=== PATIENT | female | born 1945 | race American Indian/Alaskan Native ===

== ENCOUNTER 2018-04-15 20:45 | Emergency (ER) | payer OTHER ==
[2018-04-15 20:56] VITALS: BP 160/88; PULSE 80; TEMP 98.3; BMI 30.9
--- NOTE | 2018-04-15 21:41 | PDOC ---
History of Present Illness - General Chief Complaint: Pain Stated Complaint: FATIGUE Time Seen by Provider: 04/15/18 21:13 History Source: Patient Exam Limitations: Clinical Condition - History of Present Illness Initial Comments: 04/15/18 21:36 Patient with history of COPD present for evaluation of the lateral calf pain after starting Levaquin antibiotics with prednisone. Patient reported mild pain to cuff area with ambulation and presents for evaluation as she was told was possible side effect of Levaquin. Denies any Achilles tenderness now denies any other symptoms now. Patient was being treated for bronchitis by PCP with Levaquin and prednisone and report her symptoms as improved with no cough now Past History - Past Medical History Allergies/Adverse Reactions: Allergies Allergy/AdvReac Type Severity Reaction Status Date / Time amoxicillin Allergy Severe diarrhea/severe Verified 04/15/18 20:56 headache/ dizziness/freezing Home Medications: Ambulatory Orders Atorvastatin Ca [Lipitor] 40 mg PO HS 03/22/13 Cholecalciferol (Vitamin D3) [Vitamin D3] 1,000 unit PO DAILY 08/28/15 Cyanocobalamin [Vitamin B12 -] 1,000 mcg PO DAILY 08/28/15 [place]-3 Fatty Acids [Fish Oil] 300 mg PO DAILY 08/28/15 Aspirin [ASA -] 81 mg PO DAILY 08/08/16 Metoprolol Succinate [Toprol XL -] 12.5 mg PO DAILY 08/08/16 metFORMIN HCL [Metformin HCl] 500 mg PO DAILY 08/08/16 Hydrocodone/Acetaminophen [Hydrocodon-Acetaminoph 7.5-325] 1 each PO Q6H #40 tablet MDD 4 08/09/16 Anemia: Yes (TAKING IRON) Asthma: No Cancer: No Cardiac Disorders: No CVA: No COPD: No CHF: No Dementia: No Diabetes: Yes (NIDDM) GI Disorders: No Disorders: Yes (FREQUENT UTI'S,KIDNEY STONES) HTN: Yes Hypercholesterolemia: Yes Liver Disease: No Seizures: No Thyroid Disease: No - Surgical History Abdominal Surgery: No Appendectomy: No Cardiac Surgery: No Cholecystectomy: No Lung Surgery: No Neurologic Surgery: No Orthopedic Surgery: No - Suicide/Smoking/Psychosocial Hx Smoking Status: No Smoking History: Former smoker Have you smoked in the past 12 months: No Number of Cigarettes Smoked Daily: 0 If you are a former smoker, when did you quit?: 2011 Information on smoking cessation initiated: No Hx Alcohol Use: Yes Drug/Substance Use Hx: No Substance Use Type: Alcohol Hx Substance Use Treatment: No Review of Systems - Review of Systems Able to Perform ROS?: Yes Is the patient limited Bur[place]ian proficient: No Constitutional: No: Chills, Diaphoresis, Fever, Loss of Appetite, Malaise, Night Sweats, Weakness, Weight Stable, Unintentional Wgt. Loss, Unexplained wgt Loss, Other HEENTM: No: Eye Pain, Blurred Vision, Tearing, Recent change in vision, Double Vision, Cataracts, Ear Pain, Ocular Prothesis, Ear Discharge, Nose Pain, Nose Congestion, Tinnitus, Nose Bleeding, Hearing Loss, Throat Pain, Throat Swelling , Mouth Pain, Dental Problems, Difficulty Swallowing, Mouth Swelling, Other Respiratory: No: Cough, Orthopnea, Shortness of Breath, SOB with Exertion, SOB at Rest, Stridor, Wheezing, Productive cough, Hemoptysis, Other Cardiac (ROS): No: Chest Pain, Edema, Irregular Heart Rate, Lightheadedness, Palpitations, Syncope, Chest Tightness, Other ABD/GI: No: Abdominal Distended, Abd. Pain w/ defecation, Blood Streaked Bowels , Constipated, Diarrhea, Difficulty Swallowing, Nausea, Poor Appetite, Poor Fluid Intake, Rectal Bleeding, Vomiting, Indigestion, Abdominal cramping, Tarry Stools, Other Musculoskeletal: Yes: Muscle Pain (b/l calf pain with ambulation) All Other Systems: Reviewed and Negative *Physical Exam - Vital Signs Last Vital Signs Temp Pulse Resp BP Pulse Ox 98.3 F 80 18 160/88 100 04/15/18 20:53 04/15/18 20:53 04/15/18 20:53 04/15/18 20:53 04/15/18 20:53 - Physical Exam Comments: 04/15/18 21:38 GENERAL: Well developed, well nourished. Awake and alert. No acute distress. HEENT: Normocephalic, atraumatic. PERRLA, EOMI. No conjunctival pallor. Sclera are non- icteric. Moist mucous membranes. Oropharynx is clear. NECK: Supple. Full ROM. No JVD. Carotid pulses 2+ and symmetric, without bruits. No thyromegaly. No lymphadenopathy. CARDIOVASCULAR: Regular rate and rhythm. No murmurs, rubs, or gallops. Distal pulses are 2+ and symmetric. PULMONARY: No evidence of respiratory distress. Lungs clear to auscultation bilaterally. No wheezing, rales or rhonchi. ABDOMINAL: Soft. Non-tender. Non-distended. No rebound or guarding. No organomegaly. Normoactive bowel sounds. MUSCULOSKELETAL Normal range of motion at all joints. No bony deformities or tenderness. No CVA tenderness. EXTREMITIES: No cyanosis. No clubbing. No edema. No calf tenderness. SKIN: Warm and dry. Normal capillary refill. No rashes. No jaundice. NEUROLOGICAL: Alert, awake, appropriate. Cranial nerves 2-12 intact. No deficits to light touch and temperature in face, upper extremities and lower extremities. No motor deficits in the in face, upper extremities and lower extremities. Normoreflexic in the upper and lower extremities. Normal speech. Toes are down- going bilaterally. Gait is normal without ataxia. PSYCHIATRIC: Cooperative. Good eye contact. Appropriate mood and affect. General Appearance: Yes: Nourished, Appropriately Dressed. No: Apparent Distress Medical Decision Making - Medical Decision Making 04/15/18 21:39 Patient with history of COPD presents for evaluation of car pain after starting Levaquin antibiotics with prednisone 4 days ago. No pain to b/l calf on exam now. No erythema to calf area. No swelling to calf area. No evidence of DVT on exam. Patient advised to stop Levaquin and prednisone and follow up with PCP. Patient advised to follow-up if worsening symptoms of calf pain or swelling to calf area *DC/Admit/Observation/Transfer Diagnosis at time of Disposition: Bilateral calf pain - Discharge Dispostion Disposition: HOME Condition at time of disposition: Good Decision to Admit order: No - Referrals Referrals: Prakash Farmer MD [Primary Care Provider] - - Patient Instructions Additional Instructions: Stop Levaquin antibiotics. Watch of follow swelling to calf area or at achilles tendon area. The temperature ER if worsening pain to calf area or Achilles tendon. Follow up with PCP tomorrow - Post Discharge Activity
== END 2018-04-15 21:53 | disposition home or self-care (01) ==
LOC: JERFT 20:45
DX: M79.661 Pain in right lower leg (principal); M79.662 Pain in left lower leg; M79.1 Myalgia; D50.9 Iron deficiency anemia, unspecified; E11.9 Type 2 diabetes mellitus without complications; J44.9 Chronic obstructive pulmonary disease, unspecified; Z79.84 Long term (current) use of oral hypoglycemic drugs; I10 Essential (primary) hypertension; E78.00 Pure hypercholesterolemia, unspecified; Z87.440 Personal history of urinary (tract) infections
CPT/HCPCS: 99281-25

== ENCOUNTER 2019-02-25 15:06 | Inpatient (IN) | payer OTHER ==
--- NOTE | 2019-02-25 15:24 | PDOC ---
Rapid Medical Evaluation Chief Complaint: Shortness of Breath Time Seen by Provider: 02/25/19 15:20 Medical Evaluation: Allergies Allergy/AdvReac Type Severity Reaction Status Date / Time amoxicillin Allergy Severe diarrhea/severe Verified 04/15/18 20:56 headache/ dizziness/freezing 02/25/19 15:20 I have done a brief in-person evaluation of this patient cc: diagnosed with uri seen by pmd, given zyrtec reports getting worse; productive coughing with greenish phlegm, congestion and shortness of breath PE: NAD lungs: diminished lungs sounds heart S1s2 Orders: neb treatment chest xray this patient will proceed to ed for further evaluation Discharge Disposition - Diagnosis Cough - Referrals - Patient Instructions - Post Discharge Activity
[2019-02-25] MEDS: ALBUTEROL SO4 2.5/IPRATROPIUM 0.5 INH SOL 3 ML VIAL.NEB. NEB SCH ×4 (15:45→16:28)
[2019-02-25] MEDS ORDERED: ALBUTEROL SO4 2.5/IPRATROPIUM 0.5 INH SOL 3 ML VIAL.NEB. NEB ONE (15:55)
--- NOTE | 2019-02-25 16:15 | PDOC ---
History of Present Illness <MehranBriandaheather Liang - Last Filed: 02/25/19 19:27> - History of Present Illness Initial Comments: 02/25/19 17:18 73F with pmh of asthma/COPD and arthritis present sot the Ed for symptoms of coughing, sob and post-tussive chest pain worsening since . Saw her PCP on Monday who prescribed Zyrtec for allergies but patient is now coughing yellow flegm. Chest pain is substernal, nonradiating. Denies subhective fever. Daughter feels like her mother looks more weak in the way she ambulates. Used to smoke more than a pack a day for decades. Stopped smoking in . Needs to sleep with head reclined, unable to sleep flat due to difficulty breathing. Denies headache, abdominal pain, dysuria, nausea, vomiting diarrhea. Took tylenol 600mg yesterday and the day before. Took her symbicort as prescribed every day. <Rashard Melendez - Last Filed: 02/25/19 19:30> - General Chief Complaint: Shortness of Breath Stated Complaint: RESPIRATORY INFECTION Time Seen by Provider: 02/25/19 15:20 Past History <MehranBriandaheather Liang - Last Filed: 02/25/19 19:27> - Past Medical History Anemia: Yes (TAKING IRON) Asthma: No Cancer: No Cardiac Disorders: No CVA: No COPD: Yes CHF: No Dementia: No Diabetes: Yes (NIDDM) GI Disorders: No Disorders: Yes (FREQUENT UTI'S,KIDNEY STONES) HTN: Yes Hypercholesterolemia: Yes Liver Disease: No Seizures: No Thyroid Disease: No - Surgical History Abdominal Surgery: No Appendectomy: No Cardiac Surgery: No Cholecystectomy: No Lung Surgery: No Neurologic Surgery: No Orthopedic Surgery: No - Immunization History Immunization Up to Date: No - Suicide/Smoking/Psychosocial Hx Smoking Status: No Smoking History: Never smoked Have you smoked in the past 12 months: No Number of Cigarettes Smoked Daily: 0 If you are a former smoker, when did you quit?: 2011 Information on smoking cessation initiated: No Hx Alcohol Use: No Drug/Substance Use Hx: No Substance Use Type: Alcohol Hx Substance Use Treatment: No <Rashard Melendez - Last Filed: 02/25/19 19:30> - Past Medical History Allergies/Adverse Reactions: Allergies Allergy/AdvReac Type Severity Reaction Status Date / Time amoxicillin Allergy Severe diarrhea/severe Verified 04/15/18 20:56 headache/ dizziness/freezing Home Medications: Ambulatory Orders Atorvastatin Ca [Lipitor] 40 mg PO HS 03/22/13 Cholecalciferol (Vitamin D3) [Vitamin D3] 1,000 unit PO DAILY 08/28/15 Cyanocobalamin [Vitamin B12 -] 1,000 mcg PO DAILY 08/28/15 [place]-3 Fatty Acids [Fish Oil] 300 mg PO DAILY 08/28/15 Aspirin [ASA -] 81 mg PO DAILY 08/08/16 Metoprolol Succinate [Toprol XL -] 12.5 mg PO DAILY 08/08/16 metFORMIN HCL [Metformin HCl] 500 mg PO DAILY 08/08/16 Hydrocodone/Acetaminophen [Hydrocodon-Acetaminoph 7.5-325] 1 each PO Q6H #40 tablet MDD 4 08/09/16 Review of Systems - Review of Systems Able to Perform ROS?: Yes Is the patient limited Khmer proficient: No Constitutional: No: Chills, Diaphoresis, Fever HEENTM: No: Symptoms Reported Respiratory: Yes: See HPI, Cough, Orthopnea, Shortness of Breath, Wheezing, Productive cough Cardiac (ROS): Yes: See HPI, Chest Pain ABD/GI: No: Symptoms Reported : No: Symptoms Reported Musculoskeletal: No: Symptoms Reported Integumentary: No: Symptoms Reported Neurological: No: Symptoms reported All Other Systems: Reviewed and Negative <Rashard Melendez - Last Filed: 02/25/19 19:30> *Physical Exam - Vital Signs Last Vital Signs Temp Pulse Resp BP Pulse Ox 98.3 F 107 H 16 111/65 89 L 02/25/19 15:21 02/25/19 15:21 02/25/19 15:21 02/25/19 15:21 02/25/19 15:21 <Brianda Laurent - Last Filed: 02/25/19 19:27> - Vital Signs Last Vital Signs Temp Pulse Resp BP Pulse Ox 98.3 F 107 H 16 111/65 89 L 02/25/19 15:21 02/25/19 15:21 02/25/19 15:21 02/25/19 15:21 02/25/19 15:21 - Physical Exam General Appearance: Yes: Obese HEENT: positive: EOMI, CHRIS, Normal ENT Inspection, Other (left ear canal clogged with wax) Respiratory/Chest: positive: Chest Tender (mildly over sternum), Decreased Breath Sounds, Wheezing (in all quadrants, insp/exp. ). negative: Respiratory Distress Cardiovascular: positive: Regular Rhythm, Regular Rate, S1, S2 Gastrointestinal/Abdominal: positive: Normal Bowel Sounds, Soft. negative: Tender Musculoskeletal: positive: Normal Inspection. negative: CVA Tenderness Extremity: positive: Normal Capillary Refill, Normal Inspection, Normal Range of Motion Integumentary: positive: Normal Color, Dry, Warm Neurologic: positive: Fully Oriented, Alert, Normal Mood/Affect, Normal Response , Motor Strength 5/5 <Rashard Melendez - Last Filed: 02/25/19 19:30> ED Treatment Course - LABORATORY CBC & Chemistry Diagram: 02/25/19 17:50 02/25/19 16:28 - ADDITIONAL ORDERS Additional order review: Laboratory Results 02/25/19 16:28 Sodium 135 L Potassium 5.7 H Chloride 99 Carbon Dioxide 25 Anion Gap 11 BUN 28 H Creatinine 1.7 H Est GFR (CKD-EPI)AfAm 34.08 Est GFR (CKD-EPI)NonAf 29.40 Random Glucose 153 H Calcium 9.4 Total Bilirubin 0.8 AST 62 H ALT 24 Alkaline Phosphatase 83 Troponin I < 0.02 B-Natriuretic Peptide 1344.6 H Total Protein 7.3 Albumin 3.2 L 02/25/19 17:50 RBC 4.31 MCV 97.3 H MCHC 33.1 RDW 13.3 MPV 7.5 Neutrophils % 81.8 D Lymphocytes % 7.9 L D Monocytes % 10.0 Eosinophils % 0.1 D Basophils % 0.2 - Medications Given in the ED: ED Medications Discontinued Medications Generic Name Dose Route Start Last Admin Trade Name Freq PRN Reason Stop Dose Admin Albuterol/Ipratropium 1 amp 02/25/19 15:30 02/25/19 16:28 Duoneb - NEB 02/25/19 16:16 1 amp Q15M STU Administration Prednisone 60 mg 02/25/19 18:00 02/25/19 18:10 Deltasone - PO 02/25/19 18:01 60 mg ONCE ONE Administration <Brianda Laurent - Last Filed: 02/25/19 19:27> - LABORATORY CBC & Chemistry Diagram: 02/25/19 17:50 02/25/19 16:28 <Rashard Melendez - Last Filed: 02/25/19 19:30> Medical Decision Making - Medical Decision Making 02/25/19 17:26 73f with pmh of asthma copd htn presenting with productive cough, sob, chest pain and diffuse wheezing for the past 4 days. Asthma/COPd exacerbation vs Respiratory infection . +/- ACS? vs dissection?, --- >EKG and trops. Will obtain xray to look for pneumonia. Reassess vital Due to the patient not having fever and having diffuse wheezing it is more likely that she has a asthma exacerbation. PAtient getting 4 duonebs from [facility]. Will get rest of labs, steroids? reassess. 02/25/19 17:53 02/25/19 18:36 EKG: Sinus tachycardia with PAC's. Possible left atrial enlargement. 02/25/19 18:50 Chest xray: A single AP view of the chest is been submitted. Since 08/18/2015, there is slight increase in symmetrical density at the bases most likely related to breast soft tissues. Mediastinum is not widened. No sign of gross consolidation, failure or pneumothorax. The bones and soft tissues are intact. Correlation recommended. 02/25/19 18:51 Patient still hypoxic unless getting 8L of O2 02/25/19 19:29 Patient admitted to hospitalist med surg for persistent hypoxia secondary to asthma exacerbation <Rashard Melendez - Last Filed: 02/25/19 19:30> *DC/Admit/Observation/Transfer <Brianda Laurent - Last Filed: 02/25/19 19:27> - Discharge Dispostion Decision to Admit order: Yes <Rashard Melendez - Last Filed: 02/25/19 19:30> Diagnosis at time of Disposition: Cough - Discharge Dispostion Condition at time of disposition: Stable - Referrals Referrals: Prakash Farmer MD [Primary Care Provider] -
[2019-02-25] MEDS ORDERED: predniSONE 20 MG TABLET (UD) PO ONE (18:00)
[2019-02-25] MEDS ORDERED: predniSONE 20 MG TABLET (UD) ONE (18:13)
[2019-02-25 18:18] LABS: BASO % 0.2 % (0-2.0); EOS % 0.1 % (0-4.5); HEMATOCRIT 41.9 % (32.4-45.2); HEMOGLOBIN 13.9 GM/dL (10.7-15.3); LYMPH % 7.9 % (8-40); MCH 32.2 pg (25.7-33.7); MCHC 33.1 g/dl (32.0-36.0); MEAN CELL VOLUME 97.3 fl (80-96); MEAN PLT VOLUME 7.5 fl (7.5-11.1); NEUT % 81.8 % (42.8-82.8); PLATELET COUNT 254 K/MM3 (134-434); RBC 4.31 M/mm3 (3.60-5.2); RDW 13.3 % (11.6-15.6); WHITE BLOOD COUNT 14.9 K/mm3 (4.0-10.0)
[2019-02-25 18:56] LABS: ALBUMIN 3.2 g/dl (3.4-5.0); ALK PHOS 83 U/L (45-117); ANION GAP 11 MMOL/L (8-16); BILIRUBIN,TOTAL 0.8 mg/dL (0.2-1); BLOOD UREA NITROGEN 28 mg/dL (7-18); CALCIUM 9.4 mg/dL (8.5-10.1); CHLORIDE 99 mmol/L (98-107); CO2 25 mmol/L (21-32); CREATININE 1.7 mg/dL (0.55-1.3); GLUCOSE,RANDOM 153 mg/dL (74-106); N-TERMINAL BNP 1344.6 pg/ml (5-125); POTASSIUM 5.7 mmol/L (3.5-5.1); SGOT/AST 62 U/L (15-37); SGPT/ALT 24 U/L (13-61); SODIUM 135 mmol/L (136-145); TOT PROT 7.3 g/dl (6.4-8.2)
--- NOTE | 2019-02-25 19:29 | PDOC ---
Documentation entered by Estrella Sabillon SCRIBE, acting as scribe for Brianda Laurent MD. Brianda Laurent MD: This documentation has been prepared by the Ramandeep goff Sammi, SCRIBE, under my direction and personally reviewed by me in its entirety. I confirm that the documentation accurately reflects all work, treatment, procedures, and medical decision making performed by me. Attending Attestation - Resident Resident Name: AlRashard - ED Attending Attestation I have performed the following: I have examined & evaluated the patient, The case was reviewed & discussed with the resident, I agree w/resident's findings & plan, Exceptions are as noted - HPI HPI: 02/25/19 18:12 The patient is a 73 year old female, with a significant PMH of asthma, COPD, arthritis, who presents to the emergency department today for evaluation of 4 days of worsening productive cough (producing yellow phlegm), SOB, and chest pain. The patient states her symptoms were so severe over the weekend and notes hallucinations. The patient notes trouble sleeping and the need to elevated her head, secondary to SOB. 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 She reports seeing her PCP on Monday, where she was prescribed Zyrtec with little relief. Denies fever or chills. Allergies: amoxicillin Social history: Former smoker (quit 2012) PCP: Marleny - Physicial Exam PE: 02/25/19 18:14 GENERAL: Well-appearing, well-nourished. No apparent distress. HEENT: Normocephalic, atraumatic. PERRL, EOM intact. CARDIOVASCULAR: Normal S1, S2. Regular rate and rhythm. PULMONARY: (+) Rhonchi ABDOMEN: Soft, non-distended, non-tender. EXTREMITIES: Normal ROM in all four extremities. No gross deformities. SKIN: Warm, dry. No rash NEUROLOGICAL: No focal neurological deficits. - Medical Decision Making 02/25/19 19:27 pt is hypoxic and needs o2 supplementation, wheezing and requires brobchodilators cxr no infiltrates imp copd exacerbation will admit to med/surg
[2019-02-25] MEDS ORDERED: IPRATROPIUM BR 0.02% 0.5 MG/2.5 ML VIAL.NEB. NEB PRN (19:46)
[2019-02-25] MEDS ORDERED: ALBUTEROL SO4 0.083% IH SOL 2.5 MG/3 ML VIAL.NEB. NEB ONE (20:37)
[2019-02-25] MEDS ORDERED: methylPREDNISolone NA SUCC 40 MG/1 ML VIAL ONE (20:37)
[2019-02-25] MEDS: ALBUTEROL SO4 0.083% IH SOL 2.5 MG/3 ML VIAL.NEB. NEB SCH ×2 (20:44→23:01)
[2019-02-25] MEDS: methylPREDNISolone NA SUCC 40 MG/1 ML VIAL IVPUSH SCH (20:44)
--- NOTE | 2019-02-25 20:56 | HP ---
Admitting History and Physical - Primary Care Physician PCP: Prakash Farmer - Admission Chief Complaint: shortness of breath History of Present Illness: 73 year old female with a PMHx COPD, OA, PreDM2, HTN, HLD presents with wheezing , progressively worsening MCCALL, and productive cough since Monday. She went to her PCP Monday and was given Zyrtec with no relief. Over the weekend she felt fatigue, runny nose and yellow sputum productive cough. Today she had significant MCCALL walking to the car so she came to ED for further evaluation. She denies fever/chills, n/v/d. Has some chest pressure when she is forcefully coughing. No recent travel or sick contacts. When asked about her allergy to PCN, she states she is not allergic to PCN, was an error. History Source: Patient Limitations to Obtaining History: No Limitations - Past Medical History Cardiovascular: Yes: HTN, Hyperlipdemia Pulmonary: Yes: COPD Musculoskeletal: Yes: Osteoarthritis ENT: Yes: Allergic Rhinitis Endocrine: Yes: Diabetes Mellitus (Prediabetes) - Past Surgical History Past Surgical History: Yes: Joint Replacement (right hip replacement, left arm surgery) - Smoking History Smoking history: Former smoker (smoked over 1 ppd for over 40 years, quit 6 years ago) Have you smoked in the past 12 months: No Aproximately how many cigarettes per day: 0 If you are a former smoker, when did you quit?: 2011 - Alcohol/Substance Use Hx Alcohol Use: No History of Substance Use: reports: None - Social History ADL: Independent History of Recent Travel: No Home Medications - Allergies Allergies/Adverse Reactions: Allergies Allergy/AdvReac Type Severity Reaction Status Date / Time No Known Drug Allergies Allergy Verified 02/25/19 20:56 - Home Medications Home Medications: Ambulatory Orders Atorvastatin Ca [Lipitor] 40 mg PO HS 03/22/13 Cholecalciferol (Vitamin D3) [Vitamin D3] 1,000 unit PO DAILY 08/28/15 Cyanocobalamin [Vitamin B12 -] 1,000 mcg PO DAILY 08/28/15 [place]-3 Fatty Acids [Fish Oil] 300 mg PO DAILY 08/28/15 Aspirin [ASA -] 81 mg PO DAILY 08/08/16 Metoprolol Succinate [Toprol XL -] 12.5 mg PO DAILY 08/08/16 Family Disease History - Family Disease History Family Disease History: Other: Father (htn), Mother (htn) Review of Systems - Review of Systems Constitutional: reports: Lethargy Eyes: reports: No Symptoms HENT: reports: Nasal Congestion Neck: reports: No Symptoms Cardiovascular: reports: Shortness of Breath Respiratory: reports: Cough, SOB on Exertion, Wheezing Gastrointestinal: reports: No Symptoms Genitourinary: reports: No Symptoms Breasts: reports: No Symptoms Reported Musculoskeletal: reports: No Symptoms Integumentary: reports: No Symptoms Neurological: reports: No Symptoms Endocrine: reports: No Symptoms Hematology/Lymphatic: reports: No Symptoms Psychiatric: reports: No Symptoms Physical Examination Vital Signs: Vital Signs Temperature 98.3 F 02/25/19 15:21 Pulse Rate 113 H 02/25/19 20:02 Respiratory Rate 16 02/25/19 19:58 Blood Pressure 110/60 02/25/19 20:02 O2 Sat by Pulse Oximetry (%) 99 02/25/19 20:02 Constitutional: Yes: Well Nourished, No Distress, Calm Eyes: Yes: WNL, Conjunctiva Clear, EOM Intact HENT: Yes: WNL, Atraumatic, Normocephalic Neck: Yes: WNL, Supple, Trachea Midline Cardiovascular: Yes: Tachycardia, S1, S2 Respiratory: Yes: Cough, Diminished (poor air entry at bilateral bases), On Nasal O2, SOB on Exertion, Wheezes (bilateral lung foss). No: Accessory Muscle Use Gastrointestinal: Yes: WNL, Normal Bowel Sounds, Soft, Abdomen, Obese Musculoskeletal: Yes: WNL Extremities: Yes: WNL Edema: No Peripheral Pulses WNL: Yes ...Motor Strength: WNL Psychiatric: Yes: WNL Labs: CBC, BMP 02/25/19 17:50 02/25/19 16:28 Imaging - Results Chest X-ray: Report Reviewed, Image Reviewed EKG: Report Reviewed, Image Reviewed Problem List - Problems (1) COPD exacerbation Code(s): J44.1 - CHRONIC OBSTRUCTIVE PULMONARY DISEASE W (ACUTE) EXACERBATION (2) HTN (hypertension) Code(s): I10 - ESSENTIAL (PRIMARY) HYPERTENSION (3) HLD (hyperlipidemia) Code(s): E78.5 - HYPERLIPIDEMIA, UNSPECIFIED (4) Prediabetes Code(s): R73.03 - PREDIABETES (5) CARL (acute kidney injury) Code(s): N17.9 - ACUTE KIDNEY FAILURE, UNSPECIFIED Assessment/Plan 73 year old female 1) Acute hypoxic respiratory failure secondary to COPD exacerbation -start IV steroids -inhaled bronchodilators -levaquin -mucolytics -supplemental 02 as needed, keep sats > 92% -BNP elevated, CXR no evidence of fluid overload, clinically not in heart failure 2) CARL -gentle IV fluids -u/a pending -reassess in AM 3) HTN -resume bb 4) HLD -resume statin 5) PreDM-diet controlled -diabetic diet and ISS while on steroids -BS checks ACHS 6) OA, controlled
[2019-02-25] MEDS: ATORVASTATIN CA 40 MG TABLET (FP) PO SCH (23:37)
[2019-02-25] MEDS: SODIUM CHLORIDE 1,000 ML IV SCH (23:37)
[2019-02-25] MEDS: INSULIN SLIDING SCALE (NOVOLOG) 1 VIAL SQ SCH (23:38)
[2019-02-25] MEDS: HEPARIN NA (PORCINE) 5,000 UNITS/ML 1ML VIAL SQ SCH (23:38)
[2019-02-26] MEDS: guaiFENesin/D-M SUGAR-FREE/ACLHOL-FREE 118 ML BOTTLE PO PRN ×2 (00:14→06:38)
[2019-02-26] MEDS: methylPREDNISolone NA SUCC 40 MG/1 ML VIAL IVPUSH SCH ×3 (02:41→17:39)
[2019-02-26] MEDS: ALBUTEROL SO4 0.083% IH SOL 2.5 MG/3 ML VIAL.NEB. NEB SCH ×3 (04:15→11:20)
[2019-02-26] MEDS: INSULIN SLIDING SCALE (NOVOLOG) 1 VIAL SQ SCH ×4 (06:38→21:46)
[2019-02-26 06:49] LABS: BASO % 0.1 % (0-2.0); HEMATOCRIT 37.1 % (32.4-45.2); HEMOGLOBIN 12.7 GM/dL (10.7-15.3); LYMPH % 3.6 % (8-40); MCH 32.8 pg (25.7-33.7); MCHC 34.2 g/dl (32.0-36.0); MEAN CELL VOLUME 95.7 fl (80-96); MONO % 2.4 % (3.8-10.2); NEUT % 93.9 % (42.8-82.8); PLATELET COUNT 240 K/MM3 (134-434); RBC 3.87 M/mm3 (3.60-5.2); RDW 13.2 % (11.6-15.6); WHITE BLOOD COUNT 10.1 K/mm3 (4.0-10.0)
[2019-02-26 07:16] LABS: CALCIUM 8.8 mg/dL (8.5-10.1); CREATININE 1.6 mg/dL (0.55-1.3); POTASSIUM 4.1 mmol/L (3.5-5.1)
--- NOTE | 2019-02-26 07:18 | PN ---
Progress Note, Physician - Current Medication List Current Medications: Active Medications Albuterol Sulfate (Ventolin 0.083% Nebulizer Soln -) 1 amp NEB RQ4H STU Last Admin: 02/26/19 04:15 Dose: 1 amp Aspirin (Asa -) 81 mg PO DAILY STU Atorvastatin Calcium (Lipitor -) 40 mg PO HS STU Last Admin: 02/25/19 23:37 Dose: 40 mg Guaifenesin (Diabetic Tussin Dm -) 10 ml PO Q6H PRN PRN Reason: COUGH Last Admin: 02/26/19 06:38 Dose: 10 ml Heparin Sodium (Porcine) (Heparin -) 5,000 unit SQ BID STU Last Admin: 02/25/19 23:38 Dose: 5,000 unit Sodium Chloride (Normal Saline -) 1,000 mls @ 75 mls/hr IV ASDIR [facility] Last Admin: 02/25/19 23:37 Dose: 75 mls/hr Insulin Aspart (Novolog Vial Sliding Scale -) 1 vial SQ ACHS [facility]; Protocol Last Admin: 02/26/19 06:38 Dose: 2 units Ipratropium [place] (Atrovent 0.02% Nebulizer -) 1 amp NEB Q6H PRN PRN Reason: WHEEZING Methylprednisolone Sodium Succinate (Solu-Medrol -) 40 mg IVPUSH Q8H-IV STU Last Admin: 02/26/19 02:41 Dose: 40 mg Metoprolol Succinate (Toprol Xl -) 12.5 mg PO DAILY [facility] - Objective Vital Signs: Vital Signs Temperature 97.8 F 02/26/19 06:44 Pulse Rate 114 H 02/26/19 06:44 Respiratory Rate 24 H 02/26/19 06:44 Blood Pressure 128/79 02/26/19 06:44 O2 Sat by Pulse Oximetry (%) 99 02/25/19 21:00 Cardiovascular: Yes: S1, S2 Respiratory: Yes: Rhonchi, Wheezes Gastrointestinal: Yes: Normal Bowel Sounds, Soft Labs: CBC, BMP 02/26/19 06:15 02/26/19 06:15 Problem List - Problems (1) COPD exacerbation Assessment/Plan: -IV steroids -inhaled bronchodilators -Ct scan -Pulm consult -ROCEPHIN -mucolytics -supplemental 02 as needed, keep sats > 92% -BNP elevated, CXR no evidence of fluid overload, clinically not in heart failure Code(s): J44.1 - CHRONIC OBSTRUCTIVE PULMONARY DISEASE W (ACUTE) EXACERBATION (2) CARL (acute kidney injury) Assessment/Plan: -gentle IV fluids -Renal consult Code(s): N17.9 - ACUTE KIDNEY FAILURE, UNSPECIFIED (3) HTN (hypertension) Assessment/Plan: Monitor Code(s): I10 - ESSENTIAL (PRIMARY) HYPERTENSION
[2019-02-26] MEDS: ALBUTEROL SO4 2.5/IPRATROPIUM 0.5 INH SOL 3 ML VIAL.NEB. NEB SCH ×4 (07:20→20:09)
[2019-02-26] MEDS ORDERED: cefTRIAXone SODIUM 1 GM VIAL ONE (08:57)
[2019-02-26] MEDS ORDERED: DEXTROSE 5%-WATER - 50 ML IVPB ONE (08:57)
[2019-02-26] MEDS: ASPIRIN 81 MG CHEWABLE TABLETS PO SCH (09:05)
[2019-02-26] MEDS: HEPARIN NA (PORCINE) 5,000 UNITS/ML 1ML VIAL SQ SCH ×2 (09:06→21:46)
[2019-02-26] MEDS: CEFTRIAXONE 1 GM in DEXTROSE 5%-WATER - 50 ML IVPB SCH (09:07)
[2019-02-26] MEDS: metoPROLOL SUCCINATE 25 MG TAB.SR.24H (FP) PO SCH (09:07)
[2019-02-26 09:15] LABS: HYALINE CASTS 47 /lpf (0-8); URINE APPEARANCE CLOUDY; URINE BACTERIA 3.7 /hpf (NEGATIVE); URINE BILIRUBIN NEGATIVE (NEGATIVE); URINE COLOR YELLOW; URINE GLUCOSE (UA) 1+ (NEGATIVE); URINE KETONE NEGATIVE (NEGATIVE); URINE LEUK ESTERASE NEGATIVE (NEGATIVE); URINE NITRITE NEGATIVE (NEGATIVE); URINE PROTEIN 1+ (NEGATIVE); URINE RBC 4 /hpf (0-4); URINE UROBILINOGEN 0.2 mg/dL (0.2-1.0); URINE WBC 5 /hpf (0-5)
--- NOTE | 2019-02-26 10:02 | EKG ---
Test Reason : Blood Pressure : / mmHG Vent. Rate : 101 BPM Atrial Rate : 101 BPM P-R Int : 138 ms QRS Dur : 078 ms QT Int : 344 ms P-R-T Axes : 079 072 074 degrees QTc Int : 446 ms SINUS TACHYCARDIA WITH PREMATURE ATRIAL COMPLEXES POSSIBLE LEFT ATRIAL ENLARGEMENT BORDERLINE ECG WHEN COMPARED WITH ECG OF 08-AUG-2016 16:57, PREMATURE ATRIAL COMPLEXES ARE NOW PRESENT T WAVE INVERSION NO LONGER EVIDENT IN LATERAL LEADS Confirmed by MD COSMO, OCTAVIO ([id number]) on 02/26/2019 10:01:56 AM Referred By: Confirmed By:OCTAVIO WILBURN MD
--- NOTE | 2019-02-26 10:26 | CON.PULM ---
Consult Consult Specialty:: PULMONARY Referred by:: Dr Farmer Reason for Consultation:: shortness of breath - History of Present Illness Chief Complaint: shortness of breath History of Present Illness: 73yo female with h/o HTN, hyperlipidemia, COPD who was admitted with worsening shortness of breath and cough x 3 days. Chest pain with coughing. No fevers, chills or sweats but was feeling generalized weakness. +cough productive of yellow sputum and wheezing. She is maintained at home on Symbicort. She stopped smoking 6 years ago, smoked about 1 PPD for 40 years before that. - History Source History Provided By: Patient, Medical Record Limitations to Obtaining History: No Limitations - Past Medical History Cardio/Vascular: Yes: HTN, Hyperlipdemia Pulmonary: Yes: COPD Musculoskeletal: Yes: Osteoarthritis ENT: Yes: Allergic Rhinitis Endocrine: Yes: Diabetes Mellitus (Prediabetes) - Past Surgical History Past Surgical History: Yes: Joint Replacement (right hip replacement, left arm surgery) - Alcohol/Substance Use Hx Alcohol Use: No History of Substance Use: reports: None - Smoking History Smoking history: Former smoker (smoked over 1 ppd for over 40 years, quit 6 years ago) Have you smoked in the past 12 months: No Aproximately how many cigarettes per day: 0 If you are a former smoker, when did you quit?: 2011 - Social History ADL: Independent History of Recent Travel: No Home Medications - Allergies Allergies/Adverse Reactions: Allergies Allergy/AdvReac Type Severity Reaction Status Date / Time No Known Drug Allergies Allergy Verified 02/25/19 20:56 - Home Medications Home Medications: Ambulatory Orders Atorvastatin Ca [Lipitor] 40 mg PO HS 03/22/13 Cholecalciferol (Vitamin D3) [Vitamin D3] 1,000 unit PO DAILY 08/28/15 Cyanocobalamin [Vitamin B12 -] 1,000 mcg PO DAILY 08/28/15 [place]-3 Fatty Acids [Fish Oil] 300 mg PO DAILY 08/28/15 Aspirin [ASA -] 81 mg PO DAILY 08/08/16 Metoprolol Succinate [Toprol XL -] 12.5 mg PO DAILY 08/08/16 Family Disease History - Family Disease History Family Disease History: Other: Father (htn), Mother (htn) Review of Systems - Review of Systems Constitutional: reports: Malaise, Weakness. denies: Chills, Lethargy Eyes: denies: Recent Change in Vision HENT: denies: Nasal Congestion, Throat Pain Neck: denies: Stiffness, Tenderness Cardiovascular: reports: Chest Pain, Shortness of Breath. denies: Edema, Palpitations Respiratory: reports: Cough, Exercise Intolerance, SOB, Wheezing. denies: Hemoptysis Gastrointestinal: denies: Abdominal Pain, Nausea, Vomiting Genitourinary: denies: Dysuria, Hematuria Neurological: denies: Dizziness, Headache Endocrine: denies: Unexplained Weight Loss Physical Exam Vital Sings: Vital Signs Temperature 97.8 F 02/26/19 06:44 Pulse Rate 114 H 02/26/19 06:44 Respiratory Rate 24 H 02/26/19 06:44 Blood Pressure 128/79 02/26/19 06:44 O2 Sat by Pulse Oximetry (%) 99 02/25/19 21:00 Constitutional: Yes: Mild Distress Eyes: Yes: Conjunctiva Clear, EOM Intact HENT: Yes: Atraumatic, Normocephalic Neck: Yes: Supple, Trachea Midline Cardiovascular: Yes: Regular Rate and Rhythm Respiratory: Yes: Rhonchi, Wheezes ...Clubbing: No Gastrointestinal: Yes: Normal Bowel Sounds, Soft. No: Tenderness Edema: No Labs: CBC, BMP 02/26/19 06:15 02/26/19 06:15 Imaging - Results Chest X-ray: Report Reviewed, Image Reviewed Cat Scan: Image Reviewed (scattered tree-in-bud infiltrates) Problem List - Problems (1) COPD exacerbation Code(s): J44.1 - CHRONIC OBSTRUCTIVE PULMONARY DISEASE W (ACUTE) EXACERBATION Assessment/Plan Acute COPD Exacerbation Acute Bronchitis HTN Hyperlipidemia Nonspecific Lung Nodules - IV medrol - inhaled bronchodilators standing and PRN - antibiotics - f/u cultures - o2 to keep SpO2 >90% - outpt f/u of lung nodules - DVT prophylaxis Thank you for this consult Zheng Page MD
[2019-02-26] MEDS ORDERED: INSULIN (NOVOLOG) ASPART 100 UNITS/ML 10ML VIAL ONE (12:05)
[2019-02-26] MEDS: AZITHROMYCIN IVPB 500 MG/250 ML BAG IVPB SCH (12:16)
[2019-02-26 12:44] LABS: ANISOCYTOSIS 0; MACROCYTOSIS 0; PLATELET ESTIMATE NORMAL
--- NOTE | 2019-02-26 14:15 | CONSULT ---
Consult - text type - Consultation Consultation Note: Renal Consult for CARL/CKD This is a 73 year old woman with hx of COPD, Arthritis, Nephrolithiasis who presented with 4 day history of cough and sob and admitted for COPD exacerbation with bronchitis and Cr of 1.7. Pt reports feeling better. No Abd pain, N/V/D. Making urine. No flank pain, dysuria. No chest pain. No BURTON/ confusion or lethargy. on IVF and antibiotics. PMhx: as above Allergies: NDKA Family Hx: NC Social Hx: No T/A/D ROS: as per HPI, all other ros negative Home Medications Medication Instructions Recorded Atorvastatin Ca [Lipitor] 40 mg PO HS 03/22/13 Cholecalciferol (Vitamin D3) 1,000 unit PO DAILY 08/28/15 [Vitamin D3] Cyanocobalamin [Vitamin B12 -] 1,000 mcg PO DAILY 08/28/15 [place]-3 Fatty Acids [Fish Oil] 300 mg PO DAILY 08/28/15 Aspirin [ASA -] 81 mg PO DAILY 08/08/16 Metoprolol Succinate [Toprol XL -] 12.5 mg PO DAILY 08/08/16 Vital Signs Temperature 97.7 F 02/26/19 10:00 Pulse Rate 100 H 02/26/19 10:00 Respiratory Rate 22 H 02/26/19 10:00 Blood Pressure 122/71 02/26/19 10:00 O2 Sat by Pulse Oximetry (%) 97 02/26/19 09:00 Intake & Output 02/23/19 02/24/19 02/25/19 02/26/19 23:59 23:59 23:59 23:59 Intake Total 625 Balance 625 Weight 87.589 kg NAD awake and alert neck supple, no JVD RRR, no M/R Dec BS, slight wheeze soft NT/ND no LE edema CBC, BMP 02/26/19 06:15 02/26/19 06:15 Current Medications Albuterol Sulfate (Ventolin 0.083% Nebulizer Soln -) 1 amp NEB RQ4H [facility] Last Admin: 02/26/19 07:20 Dose: 1 amp Albuterol/Ipratropium (Duoneb -) 1 amp NEB RQID [facility] Last Admin: 02/26/19 11:10 Dose: 1 amp Aspirin (Asa -) 81 mg PO DAILY [facility] Last Admin: 02/26/19 09:05 Dose: 81 mg Atorvastatin Calcium (Lipitor -) 40 mg PO HS [facility] Last Admin: 02/25/19 23:37 Dose: 40 mg Guaifenesin (Diabetic Tussin Dm -) 10 ml PO Q6H PRN PRN Reason: COUGH Last Admin: 02/26/19 06:38 Dose: 10 ml Heparin Sodium (Porcine) (Heparin -) 5,000 unit SQ BID [facility] Last Admin: 02/26/19 09:06 Dose: 5,000 unit Sodium Chloride (Normal Saline -) 1,000 mls @ 75 mls/hr IV ASDIR [facility] Last Admin: 02/25/19 23:37 Dose: 75 mls/hr Ceftriaxone Sodium 1 gm/ (Dextrose) 50 mls @ 200 mls/hr IVPB DAILY [facility]; Protocol Last Admin: 02/26/19 09:07 Dose: 200 mls/hr Azithromycin (Zithromax 500mg Ivpb (Pre-Docked)) 500 mg in 250 mls @ 250 mls/ hr IVPB DAILY [facility] Stop: 03/02/19 10:59 Last Admin: 02/26/19 12:16 Dose: 250 mls/hr Insulin Aspart (Novolog Vial Sliding Scale -) 1 vial SQ ACHS [facility]; Protocol Last Admin: 02/26/19 12:16 Dose: Not Given Methylprednisolone Sodium Succinate (Solu-Medrol -) 40 mg IVPUSH Q8H-IV [facility] Last Admin: 02/26/19 09:07 Dose: 40 mg Metoprolol Succinate (Toprol Xl -) 12.5 mg PO DAILY [facility] Last Admin: 02/26/19 09:07 Dose: 12.5 mg 73 year old woman with hx of COPD, Arthritis, Nephrolithiasis who presented with 4 day history of cough and sob and admitted for COPD exacerbation with bronchitis and Cr of 1.7. #CARL vs. CKD #COPD exacerbation #Bronchitis #Hyperkalemia, now resolved #Hyperlipidemia Suspect that change in renal function is due to hypovolemia in setting of infection Check urine studies for FeNa Check Renal US to r/o obstruction given hx fo kidney stones K is improved with hydration suspect that BUN may rise with IV steroids continue to trend renal function and electrolytes no indication for renal replacement therapy thank you Ronaldo Olmedo DO
[2019-02-26] MEDS: SODIUM CHLORIDE 1,000 ML IV SCH ×2 (16:16→21:45)
[2019-02-26 16:17] LABS: EPI CELLS 3.5 /HPF (0-5/HPF); HYALINE CASTS 26 /lpf (0-8); URINE APPEARANCE CLEAR; URINE BACTERIA 1.5 /hpf (NEGATIVE); URINE BILIRUBIN NEGATIVE (NEGATIVE); URINE COLOR YELLOW; URINE GLUCOSE (UA) 1+ (NEGATIVE); URINE KETONE NEGATIVE (NEGATIVE); URINE LEUK ESTERASE NEGATIVE (NEGATIVE); URINE NITRITE NEGATIVE (NEGATIVE); URINE PROTEIN TRACE (NEGATIVE); URINE RBC 5 /hpf (0-4); URINE UROBILINOGEN 0.2 mg/dL (0.2-1.0); URINE WBC 4 /hpf (0-5)
[2019-02-26] MEDS: BENZOCAINE/MENTH/CETYLPYRD CL 1 EACH LOZENGE MM PRN (20:24)
[2019-02-26] MEDS: ATORVASTATIN CA 40 MG TABLET (FP) PO SCH (21:46)
[2019-02-27] MEDS: methylPREDNISolone NA SUCC 40 MG/1 ML VIAL IVPUSH SCH ×3 (02:23→16:59)
[2019-02-27] MEDS ORDERED: ALBUTEROL SO4 0.083% IH SOL 2.5 MG/3 ML VIAL.NEB. NEB ONE (02:47)
[2019-02-27] MEDS: INSULIN SLIDING SCALE (NOVOLOG) 1 VIAL SQ SCH ×4 (06:12→21:41)
[2019-02-27] MEDS: SODIUM CHLORIDE 1,000 ML IV SCH ×2 (07:37→21:40)
[2019-02-27] MEDS: ALBUTEROL SO4 2.5/IPRATROPIUM 0.5 INH SOL 3 ML VIAL.NEB. NEB SCH ×4 (08:00→20:41)
[2019-02-27] MEDS ORDERED: cefTRIAXone SODIUM 1 GM VIAL ONE (08:38)
[2019-02-27] MEDS ORDERED: DEXTROSE 5%-WATER - 50 ML IVPB ONE (08:38)
[2019-02-27 08:57] LABS: HEMATOCRIT 35.5 % (32.4-45.2); HEMOGLOBIN 11.9 GM/dL (10.7-15.3); LYMPH % 3.2 % (8-40); MCHC 33.5 g/dl (32.0-36.0); MEAN CELL VOLUME 95.7 fl (80-96); MEAN PLT VOLUME 7.1 fl (7.5-11.1); MONO % 4.5 % (3.8-10.2); NEUT % 92.3 % (42.8-82.8); PLATELET COUNT 249 K/MM3 (134-434); RBC 3.71 M/mm3 (3.60-5.2); RDW 13.5 % (11.6-15.6); WHITE BLOOD COUNT 14.4 K/mm3 (4.0-10.0)
[2019-02-27] MEDS: metoPROLOL SUCCINATE 25 MG TAB.SR.24H (FP) PO SCH (09:19)
[2019-02-27] MEDS: BENZOCAINE/MENTH/CETYLPYRD CL 1 EACH LOZENGE MM PRN (09:19)
[2019-02-27] MEDS: ASPIRIN 81 MG CHEWABLE TABLETS PO SCH (09:20)
[2019-02-27] MEDS: CEFTRIAXONE 1 GM in DEXTROSE 5%-WATER - 50 ML IVPB SCH (09:21)
[2019-02-27] MEDS: HEPARIN NA (PORCINE) 5,000 UNITS/ML 1ML VIAL SQ SCH ×2 (09:21→21:39)
[2019-02-27 09:32] LABS: BILIRUBIN,TOTAL 0.3 mg/dL (0.2-1); CREATININE 1.2 mg/dL (0.55-1.3); MAGNESIUM 2.7 mg/dL (1.8-2.4); PHOSPHOROUS 2.6 mg/dL (2.5-4.9); POTASSIUM 3.9 mmol/L (3.5-5.1); TOT PROT 6.1 g/dl (6.4-8.2)
[2019-02-27] MEDS: AZITHROMYCIN IVPB 500 MG/250 ML BAG IVPB SCH (10:15)
[2019-02-27] MEDS ORDERED: INSULIN (NOVOLOG) ASPART 100 UNITS/ML 10ML VIAL ONE (11:09)
--- NOTE | 2019-02-27 11:55 | CONSULT ---
Consult - text type - Consultation Consultation Note: NEUROLOGY CONSULT GREATLY APPRECIATED: Events reviewed and discussed with nursing staff. Daughter at bedside aiding in history. 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 Ambulates with cane. Has help cleaning home, but otherwise independent in ADL's. PMHx HTN, HLD, DM, "Migraines," neck/back "arthritis," and insomnia on: lipitor , b12, omega 3, ASA 81, Toprol 12.5 mg QD, metformin, [place] 7.5mg Q6H. Surgical history: R THR, L wrist fracture after fall. Admitted after acute SOB, cough and dx bronchitis, now on IV azithromycin, ceftriaxone, and IV Medrol. Now with headache at vertex "milder" from her "old migraines" that improved after menopause. Somewhat relieved with Tylenol. Both daughter and pt note approximately 2 years of progressive slowing and gait decline, with more frequent falls. Previous neurological workup revealed "arthritis" in the neck and back with reportedly "normal" EMG's of the legs. She was prescribed medication for arthritis, however notes she has not taken the medication. Review of systems significant for "tremors" her whole life and chronic insomnia with "numbness," "tingling" and "pains" in the legs and hands that awaken her from sleep. She has awoken due to vivid dreams and sometimes believes there is a feeling of "presence." She has more recently accused her daughter of cheating and possibly stealing her money. Daughter is concerned about mom's memory "waxing and waning" and recent problems with vision/depth perception while driving FH++ daughter with migraines, restless limbs, and essential tremor CARLOS: Cor reg. No bruit. Neck supple. Wheezing and coughing. NEURO: Awake, alert, OX "[facility]" February. Monday. TRUMP-> [facility]T. 10/28 recall @ 3 min. CNII-CNXII: EOM's full with full foss. No facial. Gag ok. Motor: No drift. Fine rest tremor of R thumb. +cogwheeling present B/ L with reinforcement. Decreased KODAK's L > R. Strength normal. Plantars silent. Coordination: No FTN dystaxia but slowed. Sensation: Normal to vibration. Romberg +/- Gait: Sl flexed, shuffling. 4 steps to correct retropulsion. Impression: Mild B/L Cerebral dysfunction (GEOPHYSICAL MANAGER microvascular changes) worsened by Toxic-Metabolic Encephalopathy (TME) Migraine Headaches Restless Limbs Syndrome Essential tremor -> Parkinsonian tremor (probably Parkinson's Disease) REM Sleep Behavioral disorder Suggest: Continue antibiotics and hydration Await CT of head (C-). Review prior w/u for MRI of brain and C- spine Check Orthostatics, ESR, CRP, Iron panel, TSH, B12, RPR Continue metoprolol 12.5 mg for migraine prophylaxis Add Sinemet Cr 25/100 0.5 tab po @ 7,12,5 with meals x 1 week, then increase to 1 pill PO TID @ 7, 12 and 5. Add quetiapine 12.5 mg po q12H. May benefit from Pimavanserin ( Nuplazid) as out patient Pt eval with walker for gait safety. Neuro f/u as out patient for continued management. Thank you very much, Gabe Jimenez MD
[2019-02-27] MEDS: FOLIC ACID 1 MG TABLET (FP) PO SCH (12:27)
[2019-02-27] MEDS ORDERED: ACETAMINOPHEN 325 MG TABLET (FP) PO PRN (12:49)
[2019-02-27 12:55] LABS: ANISOCYTOSIS 0; MACROCYTOSIS 0; PLATELET ESTIMATE NORMAL
[2019-02-27] MEDS: CYANOCOBALAMIN (VITAMIN B-12) 1000 MCG/1 ML VIAL IM SCH (13:41)
--- NOTE | 2019-02-27 14:11 | PN ---
Progress Note (short form) - Note Progress Note: PULMONARY States breathing better but still with shortness of breath, cough and wheezing. No fevers or chills. Vital Signs Period Temp Pulse Resp BP Sys/Gonzalez Pulse Ox Last 24 Hr 97.6 F-98.7 F 85-106 20-22 113-147/62-80 93-99 Gen: tachypneic with speaking Heart: RRR Lung: scattered rhonchi, wheezes Abd: soft, nontender Ext: no edema CBC, BMP 02/27/19 08:30 02/27/19 08:30 Active Medications Acetaminophen (Tylenol -) 650 mg PO Q8H PRN PRN Reason: PAIN LEVEL 1-5 Last Admin: 02/27/19 13:40 Dose: 650 mg Albuterol/Ipratropium (Duoneb -) 1 amp NEB RQID [facility] Last Admin: 02/26/19 20:09 Dose: 1 amp Aspirin (Asa -) 81 mg PO DAILY [facility] Last Admin: 02/27/19 09:20 Dose: 81 mg Atorvastatin Calcium (Lipitor -) 40 mg PO HS [facility] Last Admin: 02/26/19 21:46 Dose: 40 mg Benzocaine/Menthol (Cepacol Lozenge -) 1 each MM Q2H PRN PRN Reason: SORE THROAT Last Admin: 02/27/19 09:19 Dose: 1 each Carbidopa/Levodopa (Sinemet *Cr* 25/100 -) 0.5 combo PO TIDCM [facility] Stop: 03/02/19 12:01 Carbidopa/Levodopa (Sinemet *Cr* 25/100 -) 1 combo PO TIDCM [facility] Cyanocobalamin (Vitamin B12 Injection -) 1,000 mcg IM DAILY [facility] Stop: 03/05/19 10:01 Last Admin: 02/27/19 13:41 Dose: 1,000 mcg Folic Acid (Folic Acid -) 1 mg PO DAILY [facility] Last Admin: 02/27/19 12:27 Dose: 1 mg Guaifenesin (Diabetic Tussin Dm -) 10 ml PO Q6H PRN PRN Reason: COUGH Last Admin: 02/26/19 06:38 Dose: 10 ml Heparin Sodium (Porcine) (Heparin -) 5,000 unit SQ BID [facility] Last Admin: 02/27/19 09:21 Dose: 5,000 unit Sodium Chloride (Normal Saline -) 1,000 mls @ 75 mls/hr IV ASDIR [facility] Last Admin: 02/27/19 07:37 Dose: 75 mls/hr Ceftriaxone Sodium 1 gm/ (Dextrose) 50 mls @ 200 mls/hr IVPB DAILY [facility]; Protocol Last Admin: 02/27/19 09:21 Dose: 200 mls/hr Azithromycin (Zithromax 500mg Ivpb (Pre-Docked)) 500 mg in 250 mls @ 250 mls/ hr IVPB DAILY [facility] Stop: 03/02/19 10:59 Last Admin: 02/27/19 10:15 Dose: 250 mls/hr Insulin Aspart (Novolog Vial Sliding Scale -) 1 vial SQ ACHS [facility]; Protocol Last Admin: 02/27/19 12:25 Dose: 4 units Methylprednisolone Sodium Succinate (Solu-Medrol -) 40 mg IVPUSH Q8H-IV [facility] Last Admin: 02/27/19 09:22 Dose: 40 mg Metoprolol Succinate (Toprol Xl -) 12.5 mg PO DAILY [facility] Last Admin: 02/27/19 09:19 Dose: 12.5 mg Quetiapine Fumarate (Seroquel -) 12.5 mg PO Q12H [facility] Thiamine HCl (Vitamin B1 Injection -) 200 mg IVPB DAILY [facility] A/P Acute COPD Exacerbation Acute Bronchitis HTN Hyperlipidemia Nonspecific Lung Nodules - continue medrol at current dose - inhaled bronchodilators standing and PRN - continue antibiotics - f/u cultures - o2 to keep SpO2 >90% - outpt f/u of lung nodules - DVT prophylaxis Problem List - Problems (1) COPD exacerbation Code(s): J44.1 - CHRONIC OBSTRUCTIVE PULMONARY DISEASE W (ACUTE) EXACERBATION
--- NOTE | 2019-02-27 14:29 | PN ---
Progress Note (short form) - Note Progress Note: Renal follow up for CARL Pt seen and examined at the bedside awake and alert sob slightly improved, cough persists no chest pain, fever or chills Vital Signs Temperature 97.8 F 02/27/19 07:56 Pulse Rate 103 H 02/27/19 07:56 Respiratory Rate 20 02/27/19 09:00 Blood Pressure 147/75 02/27/19 07:56 O2 Sat by Pulse Oximetry (%) 93 L 02/27/19 09:00 Intake & Output 02/24/19 02/25/19 02/26/19 02/27/19 23:59 23:59 23:59 23:59 Intake Total 1865 525 Balance 1865 525 Weight 87.589 kg NAD RRR, no M/R Dec BS, slight wheeze soft NT/ND no LE edema CBC, BMP 02/27/19 08:30 02/27/19 08:30 Current Medications Acetaminophen (Tylenol -) 650 mg PO Q8H PRN PRN Reason: PAIN LEVEL 1-5 Last Admin: 02/27/19 13:40 Dose: 650 mg Albuterol/Ipratropium (Duoneb -) 1 amp NEB RQID [facility] Last Admin: 02/26/19 20:09 Dose: 1 amp Aspirin (Asa -) 81 mg PO DAILY [facility] Last Admin: 02/27/19 09:20 Dose: 81 mg Atorvastatin Calcium (Lipitor -) 40 mg PO HS [facility] Last Admin: 02/26/19 21:46 Dose: 40 mg Benzocaine/Menthol (Cepacol Lozenge -) 1 each MM Q2H PRN PRN Reason: SORE THROAT Last Admin: 02/27/19 09:19 Dose: 1 each Carbidopa/Levodopa (Sinemet *Cr* 25/100 -) 0.5 combo PO TIDCM [facility] Stop: 03/02/19 12:01 Carbidopa/Levodopa (Sinemet *Cr* 25/100 -) 1 combo PO TIDCM [facility] Cyanocobalamin (Vitamin B12 Injection -) 1,000 mcg IM DAILY [facility] Stop: 03/05/19 10:01 Last Admin: 02/27/19 13:41 Dose: 1,000 mcg Fluticasone Propionate (Flonase -) 1 spray NS BID [facility] Folic Acid (Folic Acid -) 1 mg PO DAILY [facility] Last Admin: 02/27/19 12:27 Dose: 1 mg Guaifenesin (Diabetic Tussin Dm -) 10 ml PO Q6H PRN PRN Reason: COUGH Last Admin: 02/26/19 06:38 Dose: 10 ml Heparin Sodium (Porcine) (Heparin -) 5,000 unit SQ BID [facility] Last Admin: 02/27/19 09:21 Dose: 5,000 unit Sodium Chloride (Normal Saline -) 1,000 mls @ 75 mls/hr IV ASDIR [facility] Last Admin: 02/27/19 07:37 Dose: 75 mls/hr Ceftriaxone Sodium 1 gm/ (Dextrose) 50 mls @ 200 mls/hr IVPB DAILY [facility]; Protocol Last Admin: 02/27/19 09:21 Dose: 200 mls/hr Azithromycin (Zithromax 500mg Ivpb (Pre-Docked)) 500 mg in 250 mls @ 250 mls/ hr IVPB DAILY [facility] Stop: 03/02/19 10:59 Last Admin: 02/27/19 10:15 Dose: 250 mls/hr Insulin Aspart (Novolog Vial Sliding Scale -) 1 vial SQ ACHS [facility]; Protocol Last Admin: 02/27/19 12:25 Dose: 4 units Methylprednisolone Sodium Succinate (Solu-Medrol -) 40 mg IVPUSH Q8H-IV [facility] Last Admin: 02/27/19 09:22 Dose: 40 mg Metoprolol Succinate (Toprol Xl -) 12.5 mg PO DAILY [facility] Last Admin: 02/27/19 09:19 Dose: 12.5 mg Quetiapine Fumarate (Seroquel -) 12.5 mg PO Q12H [facility] Thiamine HCl (Vitamin B1 Injection -) 200 mg IVPB DAILY [facility] 73 year old woman with hx of COPD, Arthritis, Nephrolithiasis who presented with 4 day history of cough and sob and admitted for COPD exacerbation with bronchitis and Cr of 1.7. #CARL due to hypovolemic in setting of acute infection #COPD exacerbation #Bronchitis #Hyperkalemia, now resolved #Hyperlipidemia Renal function improved s/p IVF can discontinue IVF, encourged oral hydration BUN may rise in setting of steroids US of the kidney showed no acute obstruction, stones continue to trend renal function and electrolytes continue steroids and antibiotics as per pulmonary thank you Ronaldo Olmedo DO
[2019-02-27] MEDS: THIAMINE HCL 200 MG/2 ML VIAL IVPB SCH (15:12)
[2019-02-27] MEDS ORDERED: SODIUM CHLORIDE NASAL SPRAY 44 ML BOTTLE NS PRN (15:21)
--- NOTE | 2019-02-27 15:24 | PN ---
Progress Note, Physician Chief Complaint: AWAKE CONFUSED HALLUCINATIONS OVERNIGHT - Current Medication List Current Medications: Active Medications Acetaminophen (Tylenol -) 650 mg PO Q8H PRN PRN Reason: PAIN LEVEL 1-5 Last Admin: 02/27/19 13:40 Dose: 650 mg Albuterol/Ipratropium (Duoneb -) 1 amp NEB RQID [facility] Last Admin: 02/26/19 20:09 Dose: 1 amp Aspirin (Asa -) 81 mg PO DAILY [facility] Last Admin: 02/27/19 09:20 Dose: 81 mg Atorvastatin Calcium (Lipitor -) 40 mg PO HS [facility] Last Admin: 02/26/19 21:46 Dose: 40 mg Benzocaine/Menthol (Cepacol Lozenge -) 1 each MM Q2H PRN PRN Reason: SORE THROAT Last Admin: 02/27/19 09:19 Dose: 1 each Carbidopa/Levodopa (Sinemet *Cr* 25/100 -) 0.5 combo PO TIDCM [facility] Stop: 03/02/19 12:01 Carbidopa/Levodopa (Sinemet *Cr* 25/100 -) 1 combo PO TIDCM [facility] Cyanocobalamin (Vitamin B12 Injection -) 1,000 mcg IM DAILY [facility] Stop: 03/05/19 10:01 Last Admin: 02/27/19 13:41 Dose: 1,000 mcg Fluticasone Propionate (Flonase -) 1 spray NS BID [facility] Folic Acid (Folic Acid -) 1 mg PO DAILY [facility] Last Admin: 02/27/19 12:27 Dose: 1 mg Guaifenesin (Diabetic Tussin Dm -) 10 ml PO Q6H PRN PRN Reason: COUGH Last Admin: 02/26/19 06:38 Dose: 10 ml Heparin Sodium (Porcine) (Heparin -) 5,000 unit SQ BID [facility] Last Admin: 02/27/19 09:21 Dose: 5,000 unit Sodium Chloride (Normal Saline -) 1,000 mls @ 75 mls/hr IV ASDIR [facility] Last Admin: 02/27/19 07:37 Dose: 75 mls/hr Ceftriaxone Sodium 1 gm/ (Dextrose) 50 mls @ 200 mls/hr IVPB DAILY [facility]; Protocol Last Admin: 02/27/19 09:21 Dose: 200 mls/hr Azithromycin (Zithromax 500mg Ivpb (Pre-Docked)) 500 mg in 250 mls @ 250 mls/ hr IVPB DAILY [facility] Stop: 03/02/19 10:59 Last Admin: 02/27/19 10:15 Dose: 250 mls/hr Insulin Aspart (Novolog Vial Sliding Scale -) 1 vial SQ ACHS [facility]; Protocol Last Admin: 02/27/19 12:25 Dose: 4 units Loratadine (Claritin -) 10 mg PO DAILY [facility] Methylprednisolone Sodium Succinate (Solu-Medrol -) 40 mg IVPUSH Q8H-IV [facility] Last Admin: 02/27/19 09:22 Dose: 40 mg Metoprolol Succinate (Toprol Xl -) 12.5 mg PO DAILY [facility] Last Admin: 02/27/19 09:19 Dose: 12.5 mg Quetiapine Fumarate (Seroquel -) 12.5 mg PO Q12H [facility] Sodium Chloride ([place]al [place] -) 2 spray NS TID PRN PRN Reason: NASAL CONGESTION Thiamine HCl (Vitamin B1 Injection -) 200 mg IVPB DAILY [facility] Last Admin: 02/27/19 15:12 Dose: 200 mg - Objective Vital Signs: Vital Signs Temperature 98.0 F 02/27/19 14:45 Pulse Rate 111 H 02/27/19 14:40 Respiratory Rate 20 02/27/19 09:00 Blood Pressure 132/72 02/27/19 14:40 O2 Sat by Pulse Oximetry (%) 93 L 02/27/19 09:00 Constitutional: Yes: Mild Distress Eyes: Yes: WNL HENT: Yes: WNL Neck: Yes: WNL Cardiovascular: Yes: Regular Rate and Rhythm Respiratory: Yes: Diminished, Tachypnea, Wheezes Gastrointestinal: Yes: Soft Genitourinary: Yes: WNL Musculoskeletal: Yes: WNL Extremities: Yes: WNL Edema: Yes Integumentary: Yes: WNL Wound/Incision: Yes: Clean/Dry Neurological: Yes: Pre-Existing Deficit ...Motor Strength: LLE, RLE Psychiatric: Yes: Other Labs: CBC, BMP 02/27/19 08:30 02/27/19 08:30 Problem List - Problems (1) Toxic metabolic encephalopathy Code(s): G92 - TOXIC ENCEPHALOPATHY (2) Altered mental status Code(s): R41.82 - ALTERED MENTAL STATUS, UNSPECIFIED (3) CARL (acute kidney injury) Code(s): N17.9 - ACUTE KIDNEY FAILURE, UNSPECIFIED (4) COPD exacerbation Code(s): J44.1 - CHRONIC OBSTRUCTIVE PULMONARY DISEASE W (ACUTE) EXACERBATION (5) Cough Code(s): R05 - COUGH (6) HLD (hyperlipidemia) Code(s): E78.5 - HYPERLIPIDEMIA, UNSPECIFIED (7) HTN (hypertension) Code(s): I10 - ESSENTIAL (PRIMARY) HYPERTENSION (8) Prediabetes Code(s): R73.03 - PREDIABETES Assessment/Plan CT HEAD STAT R/O CVA NEURO EVAL AMS-TOXIC METABOLIC ENCEPHALOPATHY IV ABX NEBS STEROIDS PSYCH EVAL PULM WORK UP
[2019-02-27] MEDS: LORATADINE 10 MG TABLET PO SCH (16:30)
--- NOTE | 2019-02-27 17:50 | CON.PSY ---
Psychiatry Consult Chief Complaint: 73 Year old female seen for Psych eval for Visual hallucinations at home. Patient had been taking anti histamines for allergies and has severe ASthma. Seen by Nell ? parkinson's Disease with ? Psychosis. No Psych history. Symptoms: reports: Hallucinations - Previous Psychiatric Treatment Outpatient: None Inpatient: None - Previous Substance Abuse Treatment Outpatient: None Inpatient: None - Current Medications Current Medications: Active Medications Acetaminophen (Tylenol -) 650 mg PO Q8H PRN PRN Reason: PAIN LEVEL 1-5 Last Admin: 02/27/19 13:40 Dose: 650 mg Albuterol/Ipratropium (Duoneb -) 1 amp NEB RQID [facility] Last Admin: 02/27/19 16:59 Dose: 1 amp Aspirin (Asa -) 81 mg PO DAILY [facility] Last Admin: 02/27/19 09:20 Dose: 81 mg Atorvastatin Calcium (Lipitor -) 40 mg PO HS [facility] Last Admin: 02/26/19 21:46 Dose: 40 mg Benzocaine/Menthol (Cepacol Lozenge -) 1 each MM Q2H PRN PRN Reason: SORE THROAT Last Admin: 02/27/19 09:19 Dose: 1 each Carbidopa/Levodopa (Sinemet *Cr* 25/100 -) 0.5 combo PO TIDCM [facility] Stop: 03/02/19 12:01 Last Admin: 02/27/19 16:30 Dose: 0.5 combo Carbidopa/Levodopa (Sinemet *Cr* 25/100 -) 1 combo PO TIDCM [facility] Cyanocobalamin (Vitamin B12 Injection -) 1,000 mcg IM DAILY [facility] Stop: 03/05/19 10:01 Last Admin: 02/27/19 13:41 Dose: 1,000 mcg Fluticasone Propionate (Flonase -) 1 spray NS BID [facility] Folic Acid (Folic Acid -) 1 mg PO DAILY [facility] Last Admin: 02/27/19 12:27 Dose: 1 mg Guaifenesin (Diabetic Tussin Dm -) 10 ml PO Q6H PRN PRN Reason: COUGH Last Admin: 02/26/19 06:38 Dose: 10 ml Heparin Sodium (Porcine) (Heparin -) 5,000 unit SQ BID [facility] Last Admin: 02/27/19 09:21 Dose: 5,000 unit Sodium Chloride (Normal Saline -) 1,000 mls @ 75 mls/hr IV ASDIR [facility] Last Admin: 02/27/19 07:37 Dose: 75 mls/hr Ceftriaxone Sodium 1 gm/ (Dextrose) 50 mls @ 200 mls/hr IVPB DAILY [facility]; Protocol Last Admin: 02/27/19 09:21 Dose: 200 mls/hr Azithromycin (Zithromax 500mg Ivpb (Pre-Docked)) 500 mg in 250 mls @ 250 mls/ hr IVPB DAILY [facility] Stop: 03/02/19 10:59 Last Admin: 02/27/19 10:15 Dose: 250 mls/hr Insulin Aspart (Novolog Vial Sliding Scale -) 1 vial SQ ACHS [facility]; Protocol Last Admin: 02/27/19 16:31 Dose: 2 units Loratadine (Claritin -) 10 mg PO DAILY [facility] Last Admin: 02/27/19 16:30 Dose: 10 mg Methylprednisolone Sodium Succinate (Solu-Medrol -) 40 mg IVPUSH Q8H-IV [facility] Last Admin: 02/27/19 16:59 Dose: 40 mg Metoprolol Succinate (Toprol Xl -) 12.5 mg PO DAILY [facility] Last Admin: 02/27/19 09:19 Dose: 12.5 mg Quetiapine Fumarate (Seroquel -) 12.5 mg PO Q12H [facility] Sodium Chloride ([place] Nasal [place] -) 2 spray NS TID PRN PRN Reason: NASAL CONGESTION Thiamine HCl (Vitamin B1 Injection -) 200 mg IVPB DAILY [facility] Last Admin: 02/27/19 15:12 Dose: 200 mg - Allergies Allergies: Allergies Allergy/AdvReac Type Severity Reaction Status Date / Time No Known Drug Allergies Allergy Verified 02/25/19 20:56 - Current Living Status Usual Living Arrangement: Alone - Current Mental Status Evaluation Appearance: Well Groomed Attitude: Cooperative - Affect Affect: Full Range Appropriateness: Appropriate to Content - Mood Mood: Euthymic - Speech/Language Expressive: Coherent - Psychomotor Activity Psychomotor Activity: Normal - Thought Process Thought Process: Intact - Thought Content Hallucinations: Absent Delusions: Absent - Self Perception Self Perception: No Impairment - Cognition Attention: Alert Orientation: Time Memory, Immediate Recall: Intact Memory, Short Term: 3/3 Memory, Remote with Promptin/3 - Concentration Serial Sevens Intact: No Simple Calculations Intact: Yes - Abstraction Proverb Interpretation: Intact Judgement: Intact - Insight Insight: Intact - Impulse Control Impulse Control: Good Control - Suicidal Ideation Suicidal Ideation: No - Homicidal Ideation Homicidal Ideation: No Assessment/Plan 1) agree with SEroquel 12.5mg po hs.
[2019-02-27] MEDS: ATORVASTATIN CA 40 MG TABLET (FP) PO SCH (21:40)
[2019-02-27] MEDS: QUEtiapine FUMARATE 25 MG TABLET (FP) PO SCH (21:41)
[2019-02-27] MEDS: FLUTICASONE PROP 0.05% 16 GM NASAL SPRAY NS SCH (22:47)
[2019-02-28] MEDS ORDERED: HALOPERIDOL LACTATE 5 MG/ML IM ONE ×5 (01:15→23:56)
[2019-02-28] MEDS ORDERED: methylPREDNISolone NA SUCC 125 MG/2 ML VIAL ONE (01:27)
[2019-02-28 02:34] LABS: BASO % 0.1 % (0-2.0); HEMATOCRIT 38.8 % (32.4-45.2); HEMOGLOBIN 12.7 GM/dL (10.7-15.3); LYMPH % 3.9 % (8-40); MCH 31.7 pg (25.7-33.7); MCHC 32.7 g/dl (32.0-36.0); MEAN CELL VOLUME 96.9 fl (80-96); MEAN PLT VOLUME 7.4 fl (7.5-11.1); MONO % 5.8 % (3.8-10.2); NEUT % 90.2 % (42.8-82.8); PLATELET COUNT 278 K/MM3 (134-434); RDW 12.9 % (11.6-15.6); WHITE BLOOD COUNT 14.2 K/mm3 (4.0-10.0)
[2019-02-28 03:15] LABS: ALBUMIN 3.3 g/dl (3.4-5.0); BILIRUBIN,TOTAL 0.4 mg/dL (0.2-1); CALCIUM 9.1 mg/dL (8.5-10.1); CREATININE 1.2 mg/dL (0.55-1.3); MAGNESIUM 2.4 mg/dL (1.8-2.4); PHOSPHOROUS 1.8 mg/dL (2.5-4.9); POTASSIUM 4.1 mmol/L (3.5-5.1); TOT PROT 6.6 g/dl (6.4-8.2)
[2019-02-28] MEDS ORDERED: NAPH,MB-DB/K PH,MBDB POWDER PACKET PO ONE (04:03)
--- NOTE | 2019-02-28 04:27 | RAPID ---
Physical Examination Vital Signs: Vital Signs Temperature 97.7 F 02/27/19 22:00 Pulse Rate 82 02/27/19 22:00 Respiratory Rate 21 H 02/27/19 22:00 Blood Pressure 144/66 02/27/19 22:00 O2 Sat by Pulse Oximetry (%) 95 02/27/19 21:00 Labs: CBC, BMP 02/28/19 02:15 02/28/19 02:15 Rapid Response - Rapid Response Assessment: Rapid response called for Pt. having hallucinations and agitated. Pt. known to have hallucinations and agitations per chart records, though daughter admits they have gotten worse since starting the seroquel. On Physical exam VS were stable, mild wheezing anteriorly, nml s1 s2, however profound confusion A&O x1, Pt. cognizant that she is having hallucination however beleives that they are real and frustrated that no one else believes her. Pt. denies any commands from hallucinations. that she is CBC, CMP, B12, ESR, RPR and 2mg Haldol x 2 ordered for agitation to good effect. Prior EKG showed QTc of 446. Discussed reorientation of Pt. with daughter, covering RN and Pt.
[2019-02-28] MEDS ORDERED: LORazepam 2 MG/ML SDV VIAL ONE (04:40)
[2019-02-28] MEDS: INSULIN SLIDING SCALE (NOVOLOG) 1 VIAL SQ SCH ×4 (06:26→22:09)
[2019-02-28] MEDS: ALBUTEROL SO4 2.5/IPRATROPIUM 0.5 INH SOL 3 ML VIAL.NEB. NEB SCH ×4 (07:15→19:05)
[2019-02-28 08:06] LABS: SERUM IRON SATURATION 43 % (15-55); TOTAL IRON BINDING CAPACITY 237 ug/dL (250-450); UIBC 135 ug/dL (118-369)
[2019-02-28] MEDS ORDERED: DEXTROSE 5%-WATER - 50 ML IVPB ONE (09:33)
[2019-02-28] MEDS ORDERED: cefTRIAXone SODIUM 1 GM VIAL ONE (09:33)
[2019-02-28] MEDS: AZITHROMYCIN IVPB 500 MG/250 ML BAG IVPB SCH (09:35)
[2019-02-28] MEDS: CEFTRIAXONE 1 GM in DEXTROSE 5%-WATER - 50 ML IVPB SCH (09:36)
[2019-02-28] MEDS: ASPIRIN 81 MG CHEWABLE TABLETS PO SCH (09:36)
[2019-02-28] MEDS: metoPROLOL SUCCINATE 25 MG TAB.SR.24H (FP) PO SCH (09:38)
[2019-02-28] MEDS: QUEtiapine FUMARATE 25 MG TABLET (FP) PO SCH (09:38)
[2019-02-28] MEDS: FOLIC ACID 1 MG TABLET (FP) PO SCH (09:40)
[2019-02-28] MEDS: HEPARIN NA (PORCINE) 5,000 UNITS/ML 1ML VIAL SQ SCH ×2 (09:40→22:09)
[2019-02-28] MEDS: LORATADINE 10 MG TABLET PO SCH (09:40)
[2019-02-28] MEDS: THIAMINE HCL 200 MG/2 ML VIAL IVPB SCH (09:40)
[2019-02-28] MEDS: CYANOCOBALAMIN (VITAMIN B-12) 1000 MCG/1 ML VIAL IM SCH (09:40)
[2019-02-28] MEDS: FLUTICASONE PROP 0.05% 16 GM NASAL SPRAY NS SCH ×2 (09:57→22:09)
[2019-02-28] MEDS ORDERED: methylPREDNISolone NA SUCC 40 MG/1 ML VIAL IVPUSH SCH (10:00)
[2019-02-28] MEDS: guaiFENesin/D-M SUGAR-FREE/ACLHOL-FREE 118 ML BOTTLE PO PRN ×2 (10:16→17:14)
--- NOTE | 2019-02-28 10:23 | PN ---
Progress Note (short form) - Note Progress Note: PULMONARY Agitated, hallucinating overnight. States breathing slightly better. Vital Signs Period Temp Pulse Resp BP Sys/Gonzalez Pulse Ox Last 24 Hr 97.5 F-98.0 F 82-118 20-21 126-147/63-85 95 Gen: mildly tachypneic with speaking Heart: RRR Lung: les rhonchi, wheezes Abd: soft, nontender Ext: no edema CBC, BMP 02/28/19 02:15 02/28/19 02:15 Active Medications Acetaminophen (Tylenol -) 650 mg PO Q8H PRN PRN Reason: PAIN LEVEL 1-5 Last Admin: 02/27/19 13:40 Dose: 650 mg Albuterol/Ipratropium (Duoneb -) 1 amp NEB RQID [facility] Last Admin: 02/28/19 07:15 Dose: 1 amp Aspirin (Asa -) 81 mg PO DAILY [facility] Last Admin: 02/28/19 09:36 Dose: 81 mg Atorvastatin Calcium (Lipitor -) 40 mg PO HS [facility] Last Admin: 02/27/19 21:40 Dose: 40 mg Benzocaine/Menthol (Cepacol Lozenge -) 1 each MM Q2H PRN PRN Reason: SORE THROAT Last Admin: 02/27/19 09:19 Dose: 1 each Carbidopa/Levodopa (Sinemet *Cr* 25/100 -) 0.5 combo PO TIDCM [facility] Stop: 03/02/19 12:01 Last Admin: 02/28/19 09:37 Dose: 0.5 combo Carbidopa/Levodopa (Sinemet *Cr* 25/100 -) 1 combo PO TIDCM [facility] Cyanocobalamin (Vitamin B12 Injection -) 1,000 mcg IM DAILY [facility] Stop: 03/05/19 10:01 Last Admin: 02/28/19 09:40 Dose: 1,000 mcg Fluticasone Propionate (Flonase -) 1 spray NS BID [facility] Last Admin: 02/28/19 09:57 Dose: Not Given Folic Acid (Folic Acid -) 1 mg PO DAILY [facility] Last Admin: 02/28/19 09:40 Dose: 1 mg Guaifenesin (Diabetic Tussin Dm -) 10 ml PO Q6H PRN PRN Reason: COUGH Last Admin: 02/28/19 10:16 Dose: 10 ml Heparin Sodium (Porcine) (Heparin -) 5,000 unit SQ BID [facility] Last Admin: 02/28/19 09:40 Dose: 5,000 unit Sodium Chloride (Normal Saline -) 1,000 mls @ 75 mls/hr IV ASDIR [facility] Last Admin: 02/27/19 21:40 Dose: 75 mls/hr Ceftriaxone Sodium 1 gm/ (Dextrose) 50 mls @ 200 mls/hr IVPB DAILY [facility]; Protocol Last Admin: 02/28/19 09:36 Dose: 200 mls/hr Azithromycin (Zithromax 500mg Ivpb (Pre-Docked)) 500 mg in 250 mls @ 250 mls/ hr IVPB DAILY [facility] Stop: 03/02/19 10:59 Last Admin: 02/28/19 09:35 Dose: 250 mls/hr Insulin Aspart (Novolog Vial Sliding Scale -) 1 vial SQ ACHS [facility]; Protocol Last Admin: 02/28/19 06:26 Dose: Not Given Loratadine (Claritin -) 10 mg PO DAILY [facility] Last Admin: 02/28/19 09:40 Dose: 10 mg Methylprednisolone Sodium Succinate (Solu-Medrol -) 40 mg IVPUSH BID [facility] Last Admin: 02/28/19 09:38 Dose: 40 mg Metoprolol Succinate (Toprol Xl -) 12.5 mg PO DAILY [facility] Last Admin: 02/28/19 09:38 Dose: 12.5 mg Quetiapine Fumarate (Seroquel -) 12.5 mg PO Q12H [facility] Last Admin: 02/28/19 09:38 Dose: 12.5 mg Sodium Chloride ([place] Nasal [place] -) 2 spray NS TID PRN PRN Reason: NASAL CONGESTION Thiamine HCl (Vitamin B1 Injection -) 200 mg IVPB DAILY [facility] Last Admin: 02/28/19 09:40 Dose: 200 mg A/P Acute COPD Exacerbation Acute Bronchitis/Sinusitis HTN Hyperlipidemia Nonspecific Lung Nodules - will decrease medrol to daily to help minimize causes of delirium - inhaled bronchodilators standing and PRN - continue antibiotics - f/u cultures - o2 to keep SpO2 >90% - outpt f/u of lung nodules - DVT prophylaxis Problem List - Problems (1) COPD exacerbation Code(s): J44.1 - CHRONIC OBSTRUCTIVE PULMONARY DISEASE W (ACUTE) EXACERBATION
[2019-02-28] MEDS ORDERED: ALBUTEROL SO4 0.083% IH SOL 2.5 MG/3 ML VIAL.NEB. NEB PRN (10:27)
[2019-02-28 10:37] LABS: ARTERIAL BLD GAS O2 SATURATION 92.9 % (95-98); ARTERIAL BLOOD GAS BASE EXCESS -0.1 meq/l (-2-2); ARTERIAL BLOOD GAS PCO2 44.9 mmHg (35-45); ARTERIAL BLOOD GAS PO2 70.5 mmHg (80-105); ARTERIAL BLOOD GAS pH 7.36 (7.35-7.45)
[2019-02-28 10:38] LABS: ALLENS TEST POSITIVE
--- NOTE | 2019-02-28 11:58 | PN ---
Progress Note, Physician Chief Complaint: AWAKE CONFUSED DAUGHTER BEDSIDE EVENTS AND NOTES REVIEWED - Current Medication List Current Medications: Active Medications Acetaminophen (Tylenol -) 650 mg PO Q8H PRN PRN Reason: PAIN LEVEL 1-5 Last Admin: 02/27/19 13:40 Dose: 650 mg Albuterol Sulfate (Ventolin 0.083% Nebulizer Soln -) 1 amp NEB Q4H PRN PRN Reason: SHORT OF BREATH/WHEEZING Albuterol/Ipratropium (Duoneb -) 1 amp NEB RQID [facility] Last Admin: 02/28/19 11:33 Dose: 1 amp Aspirin (Asa -) 81 mg PO DAILY [facility] Last Admin: 02/28/19 09:36 Dose: 81 mg Atorvastatin Calcium (Lipitor -) 40 mg PO HS [facility] Last Admin: 02/27/19 21:40 Dose: 40 mg Benzocaine/Menthol (Cepacol Lozenge -) 1 each MM Q2H PRN PRN Reason: SORE THROAT Last Admin: 02/27/19 09:19 Dose: 1 each Carbidopa/Levodopa (Sinemet *Cr* 25/100 -) 0.5 combo PO TIDCM [facility] Stop: 03/02/19 12:01 Last Admin: 02/28/19 09:37 Dose: 0.5 combo Carbidopa/Levodopa (Sinemet *Cr* 25/100 -) 1 combo PO TIDCM [facility] Cyanocobalamin (Vitamin B12 Injection -) 1,000 mcg IM DAILY [facility] Stop: 03/05/19 10:01 Last Admin: 02/28/19 09:40 Dose: 1,000 mcg Fluticasone Propionate (Flonase -) 1 spray NS BID [facility] Last Admin: 02/28/19 09:57 Dose: Not Given Folic Acid (Folic Acid -) 1 mg PO DAILY [facility] Last Admin: 02/28/19 09:40 Dose: 1 mg Guaifenesin (Diabetic Tussin Dm -) 10 ml PO Q6H PRN PRN Reason: COUGH Last Admin: 02/28/19 10:16 Dose: 10 ml Heparin Sodium (Porcine) (Heparin -) 5,000 unit SQ BID [facility] Last Admin: 02/28/19 09:40 Dose: 5,000 unit Sodium Chloride (Normal Saline -) 1,000 mls @ 75 mls/hr IV ASDIR [facility] Last Admin: 02/27/19 21:40 Dose: 75 mls/hr Ceftriaxone Sodium 1 gm/ (Dextrose) 50 mls @ 200 mls/hr IVPB DAILY [facility]; Protocol Last Admin: 02/28/19 09:36 Dose: 200 mls/hr Azithromycin (Zithromax 500mg Ivpb (Pre-Docked)) 500 mg in 250 mls @ 250 mls/ hr IVPB DAILY [facility] Stop: 03/02/19 10:59 Last Admin: 02/28/19 09:35 Dose: 250 mls/hr Insulin Aspart (Novolog Vial Sliding Scale -) 1 vial SQ ACHS [facility]; Protocol Last Admin: 02/28/19 06:26 Dose: Not Given Loratadine (Claritin -) 10 mg PO DAILY [facility] Last Admin: 02/28/19 09:40 Dose: 10 mg Methylprednisolone Sodium Succinate (Solu-Medrol -) 40 mg IVPUSH DAILY [facility] Metoprolol Succinate (Toprol Xl -) 12.5 mg PO DAILY [facility] Last Admin: 02/28/19 09:38 Dose: 12.5 mg Quetiapine Fumarate (Seroquel -) 12.5 mg PO Q12H [facility] Last Admin: 02/28/19 09:38 Dose: 12.5 mg Sodium Chloride ([place] Nasal [place] -) 2 spray NS TID PRN PRN Reason: NASAL CONGESTION Thiamine HCl (Vitamin B1 Injection -) 200 mg IVPB DAILY [facility] Last Admin: 02/28/19 09:40 Dose: 200 mg - Objective Vital Signs: Vital Signs Temperature 98 F 02/28/19 09:00 Pulse Rate 108 H 02/28/19 10:00 Respiratory Rate 20 02/28/19 10:00 Blood Pressure 126/85 02/28/19 10:00 O2 Sat by Pulse Oximetry (%) 98 02/28/19 09:00 Constitutional: Yes: Mild Distress Eyes: Yes: WNL HENT: Yes: WNL Neck: Yes: WNL Cardiovascular: Yes: Pulse Irregular Respiratory: Yes: On Nasal O2, Rhonchi Gastrointestinal: Yes: Soft Genitourinary: Yes: Incontinence Musculoskeletal: Yes: Muscle Weakness Extremities: Yes: Other Edema: Yes Integumentary: Yes: WNL Wound/Incision: Yes: Dressing Dry and Intact Neurological: Yes: Pre-Existing Deficit ...Motor Strength: LLE, RLE Psychiatric: Yes: Other Labs: CBC, BMP 02/28/19 02:15 02/28/19 02:15 Problem List - Problems (1) Toxic metabolic encephalopathy Code(s): G92 - TOXIC ENCEPHALOPATHY (2) Altered mental status Code(s): R41.82 - ALTERED MENTAL STATUS, UNSPECIFIED (3) CARL (acute kidney injury) Code(s): N17.9 - ACUTE KIDNEY FAILURE, UNSPECIFIED (4) COPD exacerbation Code(s): J44.1 - CHRONIC OBSTRUCTIVE PULMONARY DISEASE W (ACUTE) EXACERBATION (5) Cough Code(s): R05 - COUGH (6) HLD (hyperlipidemia) Code(s): E78.5 - HYPERLIPIDEMIA, UNSPECIFIED (7) HTN (hypertension) Code(s): I10 - ESSENTIAL (PRIMARY) HYPERTENSION (8) Prediabetes Code(s): R73.03 - PREDIABETES Assessment/Plan CT HEAD STAT R/O CVA NEURO EVAL AMS-TOXIC METABOLIC ENCEPHALOPATHY IV ABX NEBS STEROIDS PSYCH EVAL AGREE WITH ZYPREXA PULM WORK UP
--- NOTE | 2019-02-28 13:22 | CONSULT ---
Admitting History and Physical - Primary Care Physician PCP: Oswaldo Pang - Admission History of Present Illness: 73yo female with h/o HTN, hyperlipidemia, COPD who was admitted with worsening shortness of breath and cough x 3 days. Chest pain with coughing. No fevers, chills or sweats but was feeling generalized weakness. +cough productive of yellow sputum and wheezing. RR-Condition 10 called when pt became physically and verbally abusive.-Agitated , hallucinating Selected Entries 02/27/19 02/27/19 02/27/19 06:00 07:56 09:27 Breakfast 25% Lunch Supper Temperature 98 F 97.8 F 02/27/19 02/27/19 02/27/19 14:40 14:45 18:00 Breakfast Lunch 25% Supper Temperature 98.0 F 97.5 F L 02/27/19 02/27/19 02/28/19 18:52 22:00 09:00 Breakfast Lunch Supper 25% Temperature 97.7 F 98 F 02/28/19 10:26 Breakfast 25% Lunch Supper Temperature Laboratory Tests 02/27/19 02/28/19 08:30 02:15 WBC 14.4 H 14.2 H Per Neurology- Impression: Acute delirium REM sleep behavioral disorder Parkinson's disease psychosis All worsened by Toxic-Metabolic encephalopathy This is my first consult with this pt. History Source: Family Member, Medical Record Limitations to Obtaining History: Clinical Condition - Past Medical History Cardiovascular: Yes: HTN, Hyperlipdemia Pulmonary: Yes: COPD Musculoskeletal: Yes: Osteoarthritis ENT: Yes: Allergic Rhinitis Endocrine: Yes: Diabetes Mellitus (Prediabetes) - Past Surgical History Past Surgical History: Yes: Joint Replacement (right hip replacement, left arm surgery) - Smoking History Smoking history: Former smoker (smoked over 1 ppd for over 40 years, quit 6 years ago) Have you smoked in the past 12 months: No Aproximately how many cigarettes per day: 0 If you are a former smoker, when did you quit?: 2012 - Alcohol/Substance Use Hx Alcohol Use: No History of Substance Use: reports: None - Social History ADL: Independent History of Recent Travel: No History - Admission Reason For Visit: RESPIRATORY INFECTION - Diagnostics X-ray: Report Reviewed CT Scan: Report Reviewed - General Mental Status: Awake and Alert, Vague, Intermittently Confused (improving but intermittent), Flat Affect Attention: Mild Impairment Ability to Follow Directions: Fair Head/Neck Control: WFL - Hearing Hearing: Normal Hearing Aide: No With Patient: No Speech Evaluation - Communication Primary Language: MONGOLIAN Oral Expression Ability: Yes: Mild Impairment - Speech Production Able to Make Needs Known: Yes: WNL Intelligibility: Yes: Mildly Impaired - Speech Characteristics Voice Loudness: Normal Voice Pitch: Yes: Mildly Low Voice Phonatory-based Quality: Yes: Hoarse, Harsh, Dysphonia, Vocal Wetness Speech Clarity: < 100% Articulation: Yes: Imprecise (mild) - Language/Auditory Comprehension Follows: Yes: 1 Stage Simple Commands Observation: Able to respond to yes/no queries: Yes, Yes/No Confusion: No, Comprehends Conversational Speech: Yes - Language/Verbal Expression Able to Respond to Simple Queries: Yes: Mildly Impaired - Swallow Evaluation/Bedside Assessment Current Nutritional Intake: Regular, Thin Liquids Oral Secretions: Yes: WFL, Tongue Coated (r/o Thrush- coated -Diabetic,Steroids) Dentition: Yes: Adequate Facial Symmetry at Rest: Symmetrical Facial Symmetry on Retraction: Symmetrical Facial Movement: Controlled Against Resistance Opening: Normal Against Resistance Closing: Normal Pucker Lips: Normal Lingual Movement: Symmetric Lingual Movement Strgth Against Opposition: Reduced Lingual Movement Characteristics: Normal Velopharyngeal Movement: Normal Laryngeal Movement: Labored,delay initiation Rate of Intake: WFL Labial Seal: WFL Oral Prep Time: WFL A-P Transit: WFL Timing of Swallow: Delayed Coughing/Throat Clear: Yes (cough with and without po trials. congested, harsh voice. Reports coughing ) Recommendations - Speech Evaluation, Impression/Plan Impression: Pt coughs with and without po trials. congested, harsh voice. Reports coughing on thin liquids, pills stick at times. Possible oral thrush. Confusion intermittent, reported to be improving? - Dysphagia Impressions/Plan Dysphagia Impressions: Mild Impairment, Risk of Aspiration *Silent aspiration: cannot be R/O at bedside Dysphagia Treatment Plan: OOB for meals, OOB for 1 h. after meals Recommendations: Modified Barium Swallow (if responsive cough, vocal wetness) - Recommendations Diet Consistency: Other (monitor tolerance) Liquids: Thin Liquids, Other (If cough, congestion increasing, downgrade to nectar thick liquid and MBS to r/o aspiration)
--- NOTE | 2019-02-28 14:20 | PN ---
Progress Note (short form) - Note Progress Note: NEUROLOGY PROGRESS: Events reviewed and discussed with PEPE Severino. Daughter and Speech therapist at bedside. Pulmonology consult read and appreciated. Per daughter and staff, pt became agitated, "delusional" and "hallucinating" in evening hours requiring 1:1 and IM Haldol and still did not sleep. Pt received 2 doses of L-Dopa 12.5/50 before dinner and this AM, along with quetiapine 12.5 mg. Medrol since reduced from 40 mg IVP Q8H to 40 mg IVP once daily per Pulm. Daughter notes behavior has occurred before at home, but "not this extreme" and "usually when she is asleep" she is talking to herself and grasping things. Pt states "I don't want to talk about last night because no one will believe me. " WBC= 14.2 Iron 102 TIBC 237 Iron sat 43% B12 > 6,000, TSH= 0.08! RPR nonreactive CARLOS: Cushingnoid. Neck supple. Audible wheezing. Tongue discolored. NEURO: Awakens to name, speech fluent with periods of gibberish. Distracted, but can be redirected and follow commands. ? Hallucinating Reports "[facility]" to "[place]" "September" no "February." "2019." TRUMP. CNII-CNXII: EOM's full. Full foss. No facial. Gag ok. Motor: No drift. Lessened sustention/grasp tremor. Strength normal. Reflexes brisk throughout. Plantars silent. Coordination: No FTN dystaxia. Sensation: Feel pinch in all fours Impression: Acute delirium REM sleep behavioral disorder Parkinson's disease psychosis All worsened by Toxic-Metabolic encephalopathy Infection/ steroids) Suggest: Continue antibiotics and hydration. Agree with lower doses of steroids per Pulm. MRI of brain (C-) Endocrinology consult to evaluate hyperthryoid state. Check FT3, FT4. Observe off L- dopa and quetiapine at this time. Consider treatment of REM disorder with low doses of clonazepam 0.25 mg HS. Thank you very much, Gabe Jimenez MD
--- NOTE | 2019-02-28 14:57 | PN ---
Progress Note (short form) - Note Progress Note: Renal follow up for CARL Pt seen and examined at the bedside awake and alert chart reviewed and overnight and AM events discussed with daughter pt is oriented x 3 asking about bugs under her bed still confused Vital Signs Temperature 98 F 02/28/19 09:00 Pulse Rate 108 H 02/28/19 10:00 Respiratory Rate 20 02/28/19 10:00 Blood Pressure 126/85 02/28/19 10:00 O2 Sat by Pulse Oximetry (%) 98 02/28/19 09:00 Intake & Output 02/25/19 02/26/19 02/27/19 02/28/19 23:59 23:59 23:59 23:59 Intake Total 1865 1875 400 Balance 1865 1875 400 Weight 87.589 kg 87.543 kg NAD RRR, no M/R Dec BS, slight wheeze soft NT/ND no LE edema CBC, BMP 02/28/19 02:15 02/28/19 02:15 Current Medications Acetaminophen (Tylenol -) 650 mg PO Q8H PRN PRN Reason: PAIN LEVEL 1-5 Last Admin: 02/27/19 13:40 Dose: 650 mg Albuterol Sulfate (Ventolin 0.083% Nebulizer Soln -) 1 amp NEB Q4H PRN PRN Reason: SHORT OF BREATH/WHEEZING Albuterol/Ipratropium (Duoneb -) 1 amp NEB RQID [facility] Last Admin: 02/28/19 11:33 Dose: 1 amp Aspirin (Asa -) 81 mg PO DAILY [facility] Last Admin: 02/28/19 09:36 Dose: 81 mg Atorvastatin Calcium (Lipitor -) 40 mg PO HS [facility] Last Admin: 02/27/19 21:40 Dose: 40 mg Benzocaine/Menthol (Cepacol Lozenge -) 1 each MM Q2H PRN PRN Reason: SORE THROAT Last Admin: 02/27/19 09:19 Dose: 1 each Cyanocobalamin (Vitamin B12 Injection -) 1,000 mcg IM DAILY [facility] Stop: 03/05/19 10:01 Last Admin: 02/28/19 09:40 Dose: 1,000 mcg Fluticasone Propionate (Flonase -) 1 spray NS BID [facility] Last Admin: 02/28/19 09:57 Dose: Not Given Folic Acid (Folic Acid -) 1 mg PO DAILY [facility] Last Admin: 02/28/19 09:40 Dose: 1 mg Guaifenesin (Diabetic Tussin Dm -) 10 ml PO Q6H PRN PRN Reason: COUGH Last Admin: 02/28/19 10:16 Dose: 10 ml Heparin Sodium (Porcine) (Heparin -) 5,000 unit SQ BID [facility] Last Admin: 02/28/19 09:40 Dose: 5,000 unit Sodium Chloride (Normal Saline -) 1,000 mls @ 75 mls/hr IV ASDIR [facility] Last Admin: 02/27/19 21:40 Dose: 75 mls/hr Ceftriaxone Sodium 1 gm/ (Dextrose) 50 mls @ 200 mls/hr IVPB DAILY [facility]; Protocol Last Admin: 02/28/19 09:36 Dose: 200 mls/hr Azithromycin (Zithromax 500mg Ivpb (Pre-Docked)) 500 mg in 250 mls @ 250 mls/ hr IVPB DAILY [facility] Stop: 03/02/19 10:59 Last Admin: 02/28/19 09:35 Dose: 250 mls/hr Insulin Aspart (Novolog Vial Sliding Scale -) 1 vial SQ ACHS [facility]; Protocol Last Admin: 02/28/19 12:48 Dose: Not Given Loratadine (Claritin -) 10 mg PO DAILY [facility] Last Admin: 02/28/19 09:40 Dose: 10 mg Methylprednisolone Sodium Succinate (Solu-Medrol -) 40 mg IVPUSH DAILY [facility] Metoprolol Succinate (Toprol Xl -) 12.5 mg PO DAILY [facility] Last Admin: 02/28/19 09:38 Dose: 12.5 mg Potassium Phos/Sodium Phos (Phos-Nak Packet -) 1 packet PO DAILY [facility] Sodium Chloride ([place] Nasal [place] -) 2 spray NS TID PRN PRN Reason: NASAL CONGESTION Thiamine HCl (Vitamin B1 Injection -) 200 mg IVPB DAILY [facility] Last Admin: 02/28/19 09:40 Dose: 200 mg 73 year old woman with hx of COPD, Arthritis, Nephrolithiasis who presented with 4 day history of cough and sob and admitted for COPD exacerbation with bronchitis and Cr of 1.7. #CARL due to hypovolemic in setting of acute infection #COPD exacerbation #Bronchitis #Hyperkalemia, now resolved #Hyperlipidemia #Delirium Renal function improving as of yesterday off IVF but tolerating oral diet no new lab available to review today check labs in AM cause of delirium unclear, may be steroid related Check UA and urine culture (pt with prior hx of UTI's) Steroids being tapered by pulmonary Neurology and psych following thank you Ronaldo Olmedo DO
--- NOTE | 2019-02-28 18:30 | PN ---
Progress Note (short form) - Note Progress Note: Psych follow up: Patient became very agitated and began hallucinating and very disorganized and agitated. Placed on 1: 1 for safety. MS: alert, appears very restless and agitated. Oriented to name , place and person. thinking is more disorganized than yesterday.. It appears to be precipitated by Prednisone. Patient scheduled by , will wait for his evaluation. Patient is not suicidal or Homicidal at this time. PLan;1) Continue with 1:1. 2) Zyprexa 5mg po hs for agitation and Psychotic behaviour.
[2019-02-28] MEDS ORDERED: OLANZapine 5 MG TABLET PO SCH (22:00)
[2019-02-28] MEDS: ATORVASTATIN CA 40 MG TABLET (FP) PO SCH (22:09)
[2019-03-01] MEDS ORDERED: HALOPERIDOL LACTATE 5 MG/ML IM ONE (03:45)
[2019-03-01] MEDS: INSULIN SLIDING SCALE (NOVOLOG) 1 VIAL SQ SCH ×5 (06:15→21:25)
[2019-03-01] MEDS: ALBUTEROL SO4 2.5/IPRATROPIUM 0.5 INH SOL 3 ML VIAL.NEB. NEB SCH ×4 (07:40→20:40)
[2019-03-01 07:47] LABS: BASO % 0.1 % (0-2.0); EOS % 0.1 % (0-4.5); HEMATOCRIT 34.5 % (32.4-45.2); HEMOGLOBIN 11.6 GM/dL (10.7-15.3); LYMPH % 6.9 % (8-40); MCH 32.1 pg (25.7-33.7); MCHC 33.6 g/dl (32.0-36.0); MEAN CELL VOLUME 95.3 fl (80-96); MEAN PLT VOLUME 7.4 fl (7.5-11.1); NEUT % 81.9 % (42.8-82.8); RBC 3.62 M/mm3 (3.60-5.2); WHITE BLOOD COUNT 12.8 K/mm3 (4.0-10.0)
[2019-03-01 08:14] LABS: CALCIUM 9.2 mg/dL (8.5-10.1); MAGNESIUM 2.3 mg/dL (1.8-2.4); PHOSPHOROUS 2.4 mg/dL (2.5-4.9); POTASSIUM 3.9 mmol/L (3.5-5.1)
[2019-03-01] MEDS ORDERED: cefTRIAXone SODIUM 1 GM VIAL ONE (08:27)
[2019-03-01] MEDS ORDERED: DEXTROSE 5%-WATER - 50 ML IVPB ONE (08:27)
[2019-03-01] MEDS: LORATADINE 10 MG TABLET PO SCH (09:00)
[2019-03-01] MEDS: FOLIC ACID 1 MG TABLET (FP) PO SCH (09:00)
[2019-03-01] MEDS: metoPROLOL SUCCINATE 25 MG TAB.SR.24H (FP) PO SCH (09:00)
[2019-03-01] MEDS: ASPIRIN 81 MG CHEWABLE TABLETS PO SCH (09:00)
[2019-03-01] MEDS: NAPH,MB-DB/K PH,MBDB POWDER PACKET PO SCH (09:01)
[2019-03-01] MEDS: HEPARIN NA (PORCINE) 5,000 UNITS/ML 1ML VIAL SQ SCH ×2 (09:01→21:25)
[2019-03-01] MEDS: CEFTRIAXONE 1 GM in DEXTROSE 5%-WATER - 50 ML IVPB SCH (09:01)
[2019-03-01] MEDS: methylPREDNISolone NA SUCC 40 MG/1 ML VIAL IVPUSH SCH (09:01)
[2019-03-01] MEDS: THIAMINE HCL 200 MG/2 ML VIAL IVPB SCH (09:01)
[2019-03-01] MEDS: CYANOCOBALAMIN (VITAMIN B-12) 1000 MCG/1 ML VIAL IM SCH ×2 (09:01→09:38)
[2019-03-01] MEDS: AZITHROMYCIN IVPB 500 MG/250 ML BAG IVPB SCH (09:01)
[2019-03-01] MEDS: FLUTICASONE PROP 0.05% 16 GM NASAL SPRAY NS SCH ×2 (09:02→21:23)
[2019-03-01] MEDS ORDERED: PT OWN MED DRAWER 7, Y5N ONE ×4 (09:40→20:22)
[2019-03-01 12:12] LABS: PLATELET COUNT 259 K/MM3 (134-434)
--- NOTE | 2019-03-01 12:14 | PN ---
Progress Note, [employer] - Note Progress Note: Selected Entries 02/28/19 02/28/19 02/28/19 09:00 10:26 15:27 Breakfast 25% Lunch 50% Supper Temperature 98 F 98.3 F 02/28/19 02/28/19 02/28/19 18:00 18:07 22:00 Breakfast Lunch Supper 75% Temperature 97.6 F 98.2 F 03/01/19 03/01/19 05:57 10:00 Breakfast Lunch Supper Temperature 98.2 F 97.6 F Laboratory Tests 02/27/19 02/28/19 03/01/19 08:30 02:15 06:15 WBC 14.4 H 14.2 H 12.8 H Pt on reg diet/thin liquid. Tongue still coated. r/o thrush Family present. Not eating solids food at bedside. REC: Dys puree/thin liquids/Glucerna/Magic cup r/o thrush/treat as indicated.
[2019-03-01 12:16] LABS: ANISOCYTOSIS 2+; MACROCYTOSIS 0; PLATELET ESTIMATE NORMAL
--- NOTE | 2019-03-01 12:52 | PN ---
Progress Note (short form) - Note Progress Note: PULMONARY APPEARS RESTLESS VSS/AFEBRILE AGITATION/CONFUSION PREDATED THE IV STEROIDS STARTED PRIOR TO ADMISSION PALE/ANICTERIC MILD DIFFUSE EXP WHEEZE ANT/POST S1S2 BS+ OBESE 1+ EDEMA LOWER EXT LABS/MEDS/NOTES/IMAGES/ABG / PSYCH EVAL REVIEWED A/P Acute COPD Exacerbation Acute Bronchitis/Sinusitis HTN Hyperlipidemia Nonspecific Lung Nodules - medrol decreased to help minimize causes of delirium - inhaled bronchodilators standing and PRN - continue antibiotics - f/u cultures - o2 to keep SpO2 >90% - outpt f/u of lung nodules - DVT prophylaxis Kvng WADDELL MD
--- NOTE | 2019-03-01 14:22 | HOL ---
Hook-up date: 2019-02-27 16:03:00 Duration: 11:15:00 Test Indications: MONITOR TACHYCARDIA Medications: 20120 QRS complexes 24 Ventricular ectopics which represent <1 % of total QRS comp. 21 Supraventricular ectopics which represent <1 % of total QRS comp. * Paced QRS complexs which represent % of total QRS comp. * % of Time Classified as Noise VENTRICULAR ECTOPY 24 Isolated 0 Bigeminal Cycles 0 Couplets 0 Runs 0 Beats in Runs * Beats LONGEST at * BPM at :: -- * Beats FASTEST at * BPM at :: -- SUPRAVENTRICULAR ECTOPY 21 Isolated 0 Couplets 0 Runs 0 Beats in Runs * Beats LONGEST at * BPM at :: -- * Beats FASTEST at * BPM at :: -- HEART RATES 88 MIN at 20:03:37 2019-02-27 108 AVG 138 MAX at 02:56:19 2019-02-28 LONGEST RR 0.680 secs at 00:13:03 2019-02-28 SCANNED BY AFTAB ALMAZAN ON 03/01/19 RUN 11:15 HOURS..ORDERING DOCTOR INFORMED. The underlying rhythm was normal sinus/sinus tachycardia at an average rate of 108bpm. There were rare, single ventricular premature contractions. There were rare, single atrial premature contractions. No significant pauses or sustained arrhythmias. Confirmed by MED BANKS, PRATEEK ([id number]) on 03/01/2019 2:21:19 PM Referred By: AUGUSTIN BOCANEGRA DR Overread By: PRATEEK JOVEL MD
--- NOTE | 2019-03-01 14:59 | PN ---
Progress Note, Physician Chief Complaint: Acute Hypoxic Respiratory Failure COPD exacerbation AMS History of Present Illness: Previous notes and events reviewed awake and alert NAD pending Brain MRI - Current Medication List Current Medications: Active Medications Acetaminophen (Tylenol -) 650 mg PO Q8H PRN PRN Reason: PAIN LEVEL 1-5 Last Admin: 02/27/19 13:40 Dose: 650 mg Albuterol Sulfate (Ventolin 0.083% Nebulizer Soln -) 1 amp NEB Q4H PRN PRN Reason: SHORT OF BREATH/WHEEZING Albuterol/Ipratropium (Duoneb -) 1 amp NEB RQID [facility] Last Admin: 03/01/19 11:25 Dose: 1 amp Aspirin (Asa -) 81 mg PO DAILY [facility] Last Admin: 03/01/19 09:00 Dose: 81 mg Atorvastatin Calcium (Lipitor -) 40 mg PO HS [facility] Last Admin: 02/28/19 22:09 Dose: 40 mg Benzocaine/Menthol (Cepacol Lozenge -) 1 each MM Q2H PRN PRN Reason: SORE THROAT Last Admin: 02/27/19 09:19 Dose: 1 each Cyanocobalamin (Vitamin B12 Injection -) 1,000 mcg IM DAILY [facility] Stop: 03/05/19 10:01 Last Admin: 03/01/19 09:38 Dose: Not Given Fluticasone Propionate (Flonase -) 1 spray NS BID [facility] Last Admin: 03/01/19 09:02 Dose: Not Given Folic Acid (Folic Acid -) 1 mg PO DAILY [facility] Last Admin: 03/01/19 09:00 Dose: 1 mg Guaifenesin (Diabetic Tussin Dm -) 10 ml PO Q6H PRN PRN Reason: COUGH Last Admin: 02/28/19 17:14 Dose: 10 ml Heparin Sodium (Porcine) (Heparin -) 5,000 unit SQ BID [facility] Last Admin: 03/01/19 09:01 Dose: 5,000 unit Ceftriaxone Sodium 1 gm/ (Dextrose) 50 mls @ 200 mls/hr IVPB DAILY [facility]; Protocol Last Admin: 03/01/19 09:01 Dose: 200 mls/hr Azithromycin (Zithromax 500mg Ivpb (Pre-Docked)) 500 mg in 250 mls @ 250 mls/ hr IVPB DAILY [facility] Stop: 03/02/19 10:59 Last Admin: 03/01/19 09:01 Dose: 250 mls/hr Insulin Aspart (Novolog Vial Sliding Scale -) 1 vial SQ ACHS [facility]; Protocol Last Admin: 03/01/19 11:51 Dose: Not Given Loratadine (Claritin -) 10 mg PO DAILY [facility] Last Admin: 03/01/19 09:00 Dose: 10 mg Methylprednisolone Sodium Succinate (Solu-Medrol -) 40 mg IVPUSH DAILY [facility] Last Admin: 03/01/19 09:01 Dose: 40 mg Metoprolol Succinate (Toprol Xl -) 12.5 mg PO DAILY [facility] Last Admin: 03/01/19 09:00 Dose: 12.5 mg Olanzapine (Zyprexa -) 5 mg PO HS [facility] Last Admin: 02/28/19 22:08 Dose: 5 mg Potassium Phos/Sodium Phos (Phos-Nak Packet -) 1 packet PO DAILY [facility] Last Admin: 03/01/19 09:01 Dose: 1 packet Sodium Chloride ([place] Nasal [place] -) 2 spray NS TID PRN PRN Reason: NASAL CONGESTION Thiamine HCl (Vitamin B1 Injection -) 200 mg IVPB DAILY [facility] Last Admin: 03/01/19 09:01 Dose: 200 mg - Objective Vital Signs: Vital Signs Temperature 98.6 F 03/01/19 13:52 Pulse Rate 119 H 03/01/19 13:52 Respiratory Rate 24 H 03/01/19 13:52 Blood Pressure 146/80 03/01/19 13:52 O2 Sat by Pulse Oximetry (%) 93 L 03/01/19 09:00 Constitutional: Yes: No Distress, Calm Eyes: Yes: Conjunctiva Clear HENT: Yes: Atraumatic Cardiovascular: Yes: Regular Rate and Rhythm Respiratory: Yes: Wheezes Gastrointestinal: Yes: Normal Bowel Sounds, Soft, Abdomen, Obese Genitourinary: Yes: Incontinence Musculoskeletal: Yes: Muscle Weakness Extremities: Yes: WNL Edema: No Neurological: Yes: Alert Psychiatric: Yes: Alert, Oriented (name, place, time) Labs: CBC, BMP 03/01/19 06:15 03/01/19 06:15 Microbiology 02/25/19 07:00 Urine - Urine Clean Catch Urine Culture - Final NO GROWTH OBTAINED - ....Imaging Chest X-ray: Report Reviewed Problem List - Problems (1) CARL (acute kidney injury) Assessment/Plan: -renal on board -BUN/Cr 30/1.0 -monitor renal function daily Code(s): N17.9 - ACUTE KIDNEY FAILURE, UNSPECIFIED (2) COPD exacerbation Assessment/Plan: -Pulm on board -IV medrol -bronchodilators -Azithromycin -keep SpO2 >90% -O2 via NC -CXR shows no acute pathology Code(s): J44.1 - CHRONIC OBSTRUCTIVE PULMONARY DISEASE W (ACUTE) EXACERBATION (3) HLD (hyperlipidemia) Assessment/Plan: -Atorvastatin Code(s): E78.5 - HYPERLIPIDEMIA, UNSPECIFIED (4) HTN (hypertension) Assessment/Plan: -Metoprolol Code(s): I10 - ESSENTIAL (PRIMARY) HYPERTENSION (5) Toxic metabolic encephalopathy Assessment/Plan: -2/2 Steroid us? -pending Brain MRI -neurology on board -Ceftriaxone -UC neg -Psych on board -Zyprexa HS Code(s): G92 - TOXIC ENCEPHALOPATHY Assessment/Plan see problem list dvt ppx
--- NOTE | 2019-03-01 15:15 | PN ---
Progress Note (short form) - Note Progress Note: Renal follow up for CARL Pt seen and examined at the bedside awake and alert but confused denies any sob, or pain Vital Signs Temperature 98.6 F 03/01/19 13:52 Pulse Rate 119 H 03/01/19 13:52 Respiratory Rate 24 H 03/01/19 13:52 Blood Pressure 146/80 03/01/19 13:52 O2 Sat by Pulse Oximetry (%) 93 L 03/01/19 09:00 Intake & Output 02/26/19 02/27/19 02/28/19 03/01/19 23:59 23:59 23:59 23:59 Intake Total 1865 1875 500 300 Balance 1865 1875 500 300 Weight 87.543 kg NAD RRR, no M/R Dec BS, slight wheeze soft NT/ND no LE edema CBC, BMP 03/01/19 06:15 03/01/19 06:15 Current Medications Acetaminophen (Tylenol -) 650 mg PO Q8H PRN PRN Reason: PAIN LEVEL 1-5 Last Admin: 02/27/19 13:40 Dose: 650 mg Albuterol Sulfate (Ventolin 0.083% Nebulizer Soln -) 1 amp NEB Q4H PRN PRN Reason: SHORT OF BREATH/WHEEZING Albuterol/Ipratropium (Duoneb -) 1 amp NEB RQID [facility] Last Admin: 03/01/19 11:25 Dose: 1 amp Aspirin (Asa -) 81 mg PO DAILY [facility] Last Admin: 03/01/19 09:00 Dose: 81 mg Atorvastatin Calcium (Lipitor -) 40 mg PO HS [facility] Last Admin: 02/28/19 22:09 Dose: 40 mg Benzocaine/Menthol (Cepacol Lozenge -) 1 each MM Q2H PRN PRN Reason: SORE THROAT Last Admin: 02/27/19 09:19 Dose: 1 each Cyanocobalamin (Vitamin B12 Injection -) 1,000 mcg IM DAILY [facility] Stop: 03/05/19 10:01 Last Admin: 03/01/19 09:38 Dose: Not Given Fluticasone Propionate (Flonase -) 1 spray NS BID [facility] Last Admin: 03/01/19 09:02 Dose: Not Given Folic Acid (Folic Acid -) 1 mg PO DAILY [facility] Last Admin: 03/01/19 09:00 Dose: 1 mg Guaifenesin (Diabetic Tussin Dm -) 10 ml PO Q6H PRN PRN Reason: COUGH Last Admin: 02/28/19 17:14 Dose: 10 ml Heparin Sodium (Porcine) (Heparin -) 5,000 unit SQ BID [facility] Last Admin: 03/01/19 09:01 Dose: 5,000 unit Ceftriaxone Sodium 1 gm/ (Dextrose) 50 mls @ 200 mls/hr IVPB DAILY [facility]; Protocol Last Admin: 03/01/19 09:01 Dose: 200 mls/hr Azithromycin (Zithromax 500mg Ivpb (Pre-Docked)) 500 mg in 250 mls @ 250 mls/ hr IVPB DAILY [facility] Stop: 03/02/19 10:59 Last Admin: 03/01/19 09:01 Dose: 250 mls/hr Insulin Aspart (Novolog Vial Sliding Scale -) 1 vial SQ ACHS [facility]; Protocol Last Admin: 03/01/19 11:51 Dose: Not Given Loratadine (Claritin -) 10 mg PO DAILY [facility] Last Admin: 03/01/19 09:00 Dose: 10 mg Methylprednisolone Sodium Succinate (Solu-Medrol -) 40 mg IVPUSH DAILY [facility] Last Admin: 03/01/19 09:01 Dose: 40 mg Metoprolol Succinate (Toprol Xl -) 12.5 mg PO DAILY [facility] Last Admin: 03/01/19 09:00 Dose: 12.5 mg Nystatin (Nystatin) 500,000 unit PO TID [facility] Olanzapine (Zyprexa -) 5 mg PO HS [facility] Last Admin: 02/28/19 22:08 Dose: 5 mg Potassium Phos/Sodium Phos (Phos-Nak Packet -) 1 packet PO DAILY [facility] Last Admin: 03/01/19 09:01 Dose: 1 packet Sodium Chloride ([place] Nasal [place] -) 2 spray NS TID PRN PRN Reason: NASAL CONGESTION Thiamine HCl (Vitamin B1 Injection -) 200 mg IVPB DAILY [facility] Last Admin: 03/01/19 09:01 Dose: 200 mg 73 year old woman with hx of COPD, Arthritis, Nephrolithiasis who presented with 4 day history of cough and sob and admitted for COPD exacerbation with bronchitis and Cr of 1.7. #CARL due to hypovolemic in setting of acute infection #COPD exacerbation #Bronchitis #Hyperkalemia, now resolved #Hyperlipidemia #Delirium Renal function improved and stable off IVF cause of delirium unclear, may be steroid related UA and urine culture negative from 02/26 Steroids being tapered by pulmonary continue work up for deliirum per Neurology and Psych will sign off case at this time, please call if there is a change in clinical status or if any questions thank you Ronaldo Olmedo DO
[2019-03-01] MEDS ORDERED: diazePAM 2 MG TABLET PO ONE (16:14)
--- NOTE | 2019-03-01 16:14 | PN ---
Progress Note (short form) - Note Progress Note: Staff report that patient became extremly agitated and hallucinated and began going in and out of her room. She was given haldol injection. Psychosis does not seem to jordyn with 5mg of Zyprexa. Plan: increase Zyprexa 10 mg po hs. @) continue with 1:1 for safety.
--- NOTE | 2019-03-01 19:41 | CONSULT ---
Consult Consult Specialty:: endocrine Reason for Consultation:: margie alvarezp - History of Present Illness Chief Complaint: anxious and restless History of Present Illness: 73 year old female with a PMHx DM2,COPD, OA, , HTN, HLD presents with wheezing, progressively worsening MCCALL, and cough. She went to her PCP and was given Zyrtec with no relief.. Today she had significant MCCALL walking to the car so she came to ED for further evaluation. She denies fever/chills, n/v/d. Has had anxiety and restless associated with tremors,found to have hyperthyroidism. - Past Medical History Cardio/Vascular: Yes: HTN, Hyperlipdemia Pulmonary: Yes: COPD Musculoskeletal: Yes: Osteoarthritis ENT: Yes: Allergic Rhinitis Endocrine: Yes: Diabetes Mellitus (Prediabetes) - Past Surgical History Past Surgical History: Yes: Joint Replacement (right hip replacement, left arm surgery) - Alcohol/Substance Use Hx Alcohol Use: No History of Substance Use: reports: None - Smoking History Smoking history: Former smoker (smoked over 1 ppd for over 40 years, quit 6 years ago) Have you smoked in the past 12 months: No Aproximately how many cigarettes per day: 0 If you are a former smoker, when did you quit?: 2011 - Social History Usual Living Arrangement: Alone ADL: Independent History of Recent Travel: No Home Medications - Allergies Allergies/Adverse Reactions: Allergies Allergy/AdvReac Type Severity Reaction Status Date / Time No Known Drug Allergies Allergy Verified 02/25/19 20:56 - Home Medications Home Medications: Ambulatory Orders Atorvastatin Ca [Lipitor] 40 mg PO HS 03/22/13 Cholecalciferol (Vitamin D3) [Vitamin D3] 1,000 unit PO DAILY 08/28/15 Cyanocobalamin [Vitamin B12 -] 1,000 mcg PO DAILY 08/28/15 Lester-3 Fatty Acids [Fish Oil] 300 mg PO DAILY 08/28/15 Aspirin [ASA -] 81 mg PO DAILY 08/08/16 Metoprolol Succinate [Toprol XL -] 12.5 mg PO DAILY 08/08/16 Family Disease History - Family Disease History Family Disease History: Other: Father (htn), Mother (htn) Review of Systems - Review of Systems Constitutional: reports: Weakness HENT: reports: No Symptoms Neck: reports: No Symptoms Cardiovascular: reports: Shortness of Breath Respiratory: reports: Exercise Intolerance Gastrointestinal: reports: Bloating Genitourinary: reports: No Symptoms, Frequency Breasts: reports: No Symptoms Reported Musculoskeletal: reports: Muscle Pain, Muscle Cramps, Muscle Weakness Neurological: reports: Numbness, Weakness Endocrine: reports: Unexplained Weight Loss Physical Exam Vital Signs: Vital Signs Temperature 98.1 F 03/01/19 18:27 Pulse Rate 117 H 03/01/19 18:27 Respiratory Rate 22 H 03/01/19 18:27 Blood Pressure 159/93 03/01/19 18:27 O2 Sat by Pulse Oximetry (%) 93 L 03/01/19 09:00 Constitutional: Yes: Anxious Eyes: Yes: EOM Intact HENT: Yes: Normocephalic Neck: Yes: Trachea Midline Cardiovascular: Yes: Tachycardia Respiratory: Yes: Rhonchi, SOB, SOB on Exertion Gastrointestinal: Yes: Normal Bowel Sounds ...Rectal Exam: Yes: Deferred Musculoskeletal: Yes: Muscle Pain, Muscle Weakness Edema: No Neurological: Yes: Alert, Tremors Psychiatric: Yes: Agitated Labs: CBC, BMP 03/01/19 06:15 03/01/19 06:15 Problem List - Problems (1) Thyrotoxicosis with diffuse goiter and without thyroid storm Code(s): E05.00 - THYROTOXICOSIS W DIFFUSE GOITER W/O THYROTOXIC CRISIS (2) Altered mental status Code(s): R41.82 - ALTERED MENTAL STATUS, UNSPECIFIED (3) HLD (hyperlipidemia) Code(s): E78.5 - HYPERLIPIDEMIA, UNSPECIFIED (4) HTN (hypertension) Code(s): I10 - ESSENTIAL (PRIMARY) HYPERTENSION (5) Prediabetes Code(s): R73.03 - PREDIABETES Assessment/Plan Current Active Problems hyperthyroidism CARL (acute kidney injury) (Acute) Altered mental status (Acute) COPD exacerbation (Acute) Cough (Acute) HLD (hyperlipidemia) (Acute) HTN (hypertension) (Acute) Prediabetes (Acute) Toxic metabolic encephalopathy (Acute) Abnormal Lab Results 03/01/19 03/01/19 06:15 06:15 WBC 12.8 H MPV 7.4 L Absolute Neuts (auto) 10.5 H Neutrophils % (Manual) 90.0 H Lymphocytes % 6.9 L D Lymphocytes % (Manual) 6.0 L D Monocytes % 11.0 H D Monocytes % (Manual) 3 L BUN 30 H Random Glucose 122 H Phosphorus 2.4 L Laboratory Results - last 24 hr 02/28/19 03/01/19 03/01/19 22:07 06:13 06:15 WBC 12.8 H RBC 3.62 Hgb 11.6 Hct 34.5 MCV 95.3 MCH 32.1 MCHC 33.6 RDW 13.0 Plt Count 259 MPV 7.4 L Absolute Neuts (auto) 10.5 H Neutrophils % 81.9 Neutrophils % (Manual) 90.0 H Band Neutrophils % 0.0 Lymphocytes % 6.9 L D Lymphocytes % (Manual) 6.0 L D Monocytes % 11.0 H D Monocytes % (Manual) 3 L Eosinophils % 0.1 D Eosinophils % (Manual) 0.0 Basophils % 0.1 Basophils % (Manual) 0.0 Myelocytes % (Man) 0 Promyelocytes % (Man) 0 Blast Cells % (Manual) 0 Nucleated RBC % 0 Metamyelocytes 0 Hypochromia 0 Platelet Estimate Normal Polychromasia 0 Poikilocytosis 2+ Anisocytosis 2+ Microcytosis 2+ Macrocytosis 0 Sodium Potassium Chloride Carbon Dioxide Anion Gap BUN Creatinine Est GFR (CKD-EPI)AfAm Est GFR (CKD-EPI)NonAf POC Glucometer 131 120 Random Glucose Calcium Phosphorus Magnesium 03/01/19 03/01/19 03/01/19 06:15 11:36 16:21 WBC RBC Hgb Hct MCV MCH MCHC RDW Plt Count MPV Absolute Neuts (auto) Neutrophils % Neutrophils % (Manual) Band Neutrophils % Lymphocytes % Lymphocytes % (Manual) Monocytes % Monocytes % (Manual) Eosinophils % Eosinophils % (Manual) Basophils % Basophils % (Manual) Myelocytes % (Man) Promyelocytes % (Man) Blast Cells % (Manual) Nucleated RBC % Metamyelocytes Hypochromia Platelet Estimate Polychromasia Poikilocytosis Anisocytosis Microcytosis Macrocytosis Sodium 137 Potassium 3.9 Chloride 101 Carbon Dioxide 28 Anion Gap 8 BUN 30 H Creatinine 1.0 Est GFR (CKD-EPI)AfAm 64.73 Est GFR (CKD-EPI)NonAf 55.85 POC Glucometer 192 159 Random Glucose 122 H Calcium 9.2 Phosphorus 2.4 L Magnesium 2.3 Laboratory Tests 02/28/19 02/28/19 02:15 15:24 TSH 0.08 L 0.07 L Free T4 1.57 H plan: tapazole 5mg bid normalize tsh
--- NOTE | 2019-03-01 20:25 | PN ---
Progress Note (short form) - Note Progress Note: NEUROLOGY PROGRESS: Events reviewed and discussed with staff and 1:1. Remained delirious through the night and today in spite of Zyprexa 5 mg and Haldo 2 mg yesterday. Received additional IM Haldol today and will get Zypexa 10 mg at [address] Donovan. MRI of brain (read by me but not yet reported): Minimal atrophy. Chronic left internal capsule lacunar infarct. Chronic sphenoid sinusitis with air fluid levels. EXAM: Neck supple. Neg K[place]igs. Afebrile Still with deep cough Resting with eyes closed. Talking nonsense to herself. Follows commands. Ox [place] Full foss and EOM's No drift. Min cogwheeling Non-focal exam IMP: Mild underlying OMS with Psychotic features Now exacerbated by infection and steroid Rx. (TME) Suggest: Taper steroids as expeditiously as possible Gradually increase Zyprexa as necessary and tolerated Continue Thiamine 200-250 mg IVPB q 8 hrs x 48 hours. Thank you very much, Gabe Jimenez MD
[2019-03-01 21:08] LABS: EPI CELLS 1.1 /HPF (0-5/HPF); HYALINE CASTS 2 /lpf (0-8); URINE APPEARANCE CLEAR; URINE BACTERIA 4.1 /hpf (NEGATIVE); URINE BILIRUBIN NEGATIVE (NEGATIVE); URINE COLOR YELLOW; URINE GLUCOSE (UA) 2+ (NEGATIVE); URINE KETONE 1+ (NEGATIVE); URINE LEUK ESTERASE NEGATIVE (NEGATIVE); URINE NITRITE NEGATIVE (NEGATIVE); URINE PROTEIN 1+ (NEGATIVE); URINE RBC 9 /hpf (0-4); URINE UROBILINOGEN 0.2 mg/dL (0.2-1.0); URINE WBC 8 /hpf (0-5)
[2019-03-01] MEDS: ATORVASTATIN CA 40 MG TABLET (FP) PO SCH (21:25)
[2019-03-01] MEDS: NYSTATIN 500,000 UNITS TABLET PO SCH (21:26)
[2019-03-01] MEDS: METHIMAZOLE 5 MG TABLET (FP) PO SCH (21:27)
[2019-03-01] MEDS: OLANZapine 10 MG TABLET PO SCH (21:27)
[2019-03-02] MEDS ORDERED: PT OWN MED DRAWER 7, Y5N ONE ×2 (06:39→14:26)
[2019-03-02] MEDS ORDERED: INSULIN (NOVOLOG) ASPART 100 UNITS/ML 10ML VIAL ONE ×2 (06:39→11:23)
[2019-03-02] MEDS: NYSTATIN 500,000 UNITS TABLET PO SCH ×3 (06:43→22:18)
[2019-03-02] MEDS: INSULIN SLIDING SCALE (NOVOLOG) 1 VIAL SQ SCH ×4 (06:43→22:17)
[2019-03-02] MEDS ORDERED: DEXTROSE 5%-WATER - 50 ML IVPB ONE (08:56)
[2019-03-02] MEDS ORDERED: cefTRIAXone SODIUM 1 GM VIAL ONE (08:56)
[2019-03-02] MEDS: CEFTRIAXONE 1 GM in DEXTROSE 5%-WATER - 50 ML IVPB SCH (09:11)
[2019-03-02] MEDS: methylPREDNISolone NA SUCC 40 MG/1 ML VIAL IVPUSH SCH (09:11)
[2019-03-02] MEDS: ASPIRIN 81 MG CHEWABLE TABLETS PO SCH (09:11)
[2019-03-02] MEDS: NAPH,MB-DB/K PH,MBDB POWDER PACKET PO SCH (09:11)
[2019-03-02] MEDS: FOLIC ACID 1 MG TABLET (FP) PO SCH (09:12)
[2019-03-02] MEDS: metoPROLOL SUCCINATE 25 MG TAB.SR.24H (FP) PO SCH (09:12)
[2019-03-02] MEDS: HEPARIN NA (PORCINE) 5,000 UNITS/ML 1ML VIAL SQ SCH ×2 (09:12→22:18)
[2019-03-02] MEDS: METHIMAZOLE 5 MG TABLET (FP) PO SCH ×2 (09:13→22:18)
[2019-03-02] MEDS: LORATADINE 10 MG TABLET PO SCH (09:13)
[2019-03-02] MEDS: CYANOCOBALAMIN (VITAMIN B-12) 1000 MCG/1 ML VIAL IM SCH (09:14)
[2019-03-02] MEDS: ALBUTEROL SO4 2.5/IPRATROPIUM 0.5 INH SOL 3 ML VIAL.NEB. NEB SCH ×4 (09:30→21:30)
--- NOTE | 2019-03-02 09:31 | PN ---
Progress Note, Physician Chief Complaint: Acute Hypoxic Respiratory Failure COPD exacerbation AMS History of Present Illness: Mild SOB Daughter at bedside AxOx3 Medrol being tapered Seen by Neurology MRI brain-chronic sinusitis, age related changes - Current Medication List Current Medications: Active Medications Acetaminophen (Tylenol -) 650 mg PO Q8H PRN PRN Reason: PAIN LEVEL 1-5 Last Admin: 02/27/19 13:40 Dose: 650 mg Albuterol Sulfate (Ventolin 0.083% Nebulizer Soln -) 1 amp NEB Q4H PRN PRN Reason: SHORT OF BREATH/WHEEZING Albuterol/Ipratropium (Duoneb -) 1 amp NEB RQID [facility] Last Admin: 03/01/19 20:40 Dose: 1 amp Aspirin (Asa -) 81 mg PO DAILY [facility] Last Admin: 03/01/19 09:00 Dose: 81 mg Atorvastatin Calcium (Lipitor -) 40 mg PO HS [facility] Last Admin: 03/01/19 21:25 Dose: 40 mg Benzocaine/Menthol (Cepacol Lozenge -) 1 each MM Q2H PRN PRN Reason: SORE THROAT Last Admin: 02/27/19 09:19 Dose: 1 each Cyanocobalamin (Vitamin B12 Injection -) 1,000 mcg IM DAILY [facility] Stop: 03/05/19 10:01 Last Admin: 03/01/19 09:38 Dose: Not Given Fluticasone Propionate (Flonase -) 1 spray NS BID [facility] Last Admin: 03/01/19 21:23 Dose: 1 spray Folic Acid (Folic Acid -) 1 mg PO DAILY [facility] Last Admin: 03/01/19 09:00 Dose: 1 mg Guaifenesin (Diabetic Tussin Dm -) 10 ml PO Q6H PRN PRN Reason: COUGH Last Admin: 02/28/19 17:14 Dose: 10 ml Heparin Sodium (Porcine) (Heparin -) 5,000 unit SQ BID [facility] Last Admin: 03/01/19 21:25 Dose: 5,000 unit Ceftriaxone Sodium 1 gm/ (Dextrose) 50 mls @ 200 mls/hr IVPB DAILY [facility]; Protocol Last Admin: 03/01/19 09:01 Dose: 200 mls/hr Azithromycin (Zithromax 500mg Ivpb (Pre-Docked)) 500 mg in 250 mls @ 250 mls/ hr IVPB DAILY [facility] Stop: 03/02/19 10:59 Last Admin: 03/01/19 09:01 Dose: 250 mls/hr Insulin Aspart (Novolog Vial Sliding Scale -) 1 vial SQ ACHS [facility]; Protocol Last Admin: 03/02/19 06:43 Dose: Not Given Loratadine (Claritin -) 10 mg PO DAILY [facility] Last Admin: 03/01/19 09:00 Dose: 10 mg Methimazole (Tapazole -) 5 mg PO BID [facility] Last Admin: 03/01/19 21:27 Dose: 5 mg Methylprednisolone Sodium Succinate (Solu-Medrol -) 40 mg IVPUSH DAILY [facility] Last Admin: 03/01/19 09:01 Dose: 40 mg Metoprolol Succinate (Toprol Xl -) 12.5 mg PO DAILY [facility] Last Admin: 03/01/19 09:00 Dose: 12.5 mg Nystatin (Nystatin) 500,000 unit PO TID [facility] Last Admin: 03/02/19 06:43 Dose: Not Given Olanzapine (Zyprexa -) 10 mg PO HS [facility] Last Admin: 03/01/19 21:27 Dose: 10 mg Potassium Phos/Sodium Phos (Phos-Nak Packet -) 1 packet PO DAILY [facility] Last Admin: 03/01/19 09:01 Dose: 1 packet Sodium Chloride ([place] Nasal [place] -) 2 spray NS TID PRN PRN Reason: NASAL CONGESTION Thiamine HCl (Vitamin B1 Injection -) 200 mg IVPB DAILY [facility] Last Admin: 03/01/19 09:01 Dose: 200 mg - Objective Vital Signs: Vital Signs Temperature 99.0 F 03/02/19 06:33 Pulse Rate 106 H 03/02/19 06:33 Respiratory Rate 22 H 03/02/19 06:33 Blood Pressure 137/80 03/02/19 06:33 O2 Sat by Pulse Oximetry (%) 94 L 03/01/19 21:00 Constitutional: Yes: Well Nourished, No Distress, Calm Cardiovascular: Yes: Regular Rate and Rhythm Respiratory: Yes: On Nasal O2, Rales (BLL) Gastrointestinal: Yes: WNL Genitourinary: Yes: WNL Musculoskeletal: Yes: WNL Extremities: Yes: WNL Edema: No Peripheral Pulses WNL: Yes Neurological: Yes: Alert, Oriented Psychiatric: Yes: Alert, Oriented Labs: CBC, BMP 03/01/19 06:15 03/01/19 06:15 Problem List - Problems (1) Bronchitis Code(s): J40 - BRONCHITIS, NOT SPECIFIED ACUTE OR CHRONIC Assessment/Plan (1) CARL (acute kidney injury) Assessment/Plan: -renal on board -monitor renal function daily Code(s): N17.9 - ACUTE KIDNEY FAILURE, UNSPECIFIED (2) COPD exacerbation Assessment/Plan: -Pulm on board -IV medrol decrease to 20 mg po daily -bronchodilators -Azithromycin -keep SpO2 >90% -O2 via NC -CXR shows no acute pathology Code(s): J44.1 - CHRONIC OBSTRUCTIVE PULMONARY DISEASE W (ACUTE) EXACERBATION (3) HLD (hyperlipidemia) Assessment/Plan: -Atorvastatin Code(s): E78.5 - HYPERLIPIDEMIA, UNSPECIFIED (4) HTN (hypertension) Assessment/Plan: -Metoprolol Code(s): I10 - ESSENTIAL (PRIMARY) HYPERTENSION (5) Toxic metabolic encephalopathy Assessment/Plan: -2/2 Steroid us? -Brain MRI reviewed -neurology on board -Ceftriaxone -UC neg -Psych on board -Zyprexa HS Code(s): G92 - TOXIC ENCEPHALOPATHY
[2019-03-02] MEDS: AZITHROMYCIN IVPB 500 MG/250 ML BAG IVPB SCH (09:51)
[2019-03-02] MEDS: FLUTICASONE PROP 0.05% 16 GM NASAL SPRAY NS SCH ×2 (09:54→22:18)
[2019-03-02 11:01] LABS: BASO % 0.1 % (0-2.0); HEMATOCRIT 35.1 % (32.4-45.2); HEMOGLOBIN 11.9 GM/dL (10.7-15.3); LYMPH % 6.5 % (8-40); MCH 32.3 pg (25.7-33.7); MCHC 33.7 g/dl (32.0-36.0); MEAN CELL VOLUME 95.8 fl (80-96); MEAN PLT VOLUME 7.3 fl (7.5-11.1); NEUT % 83.4 % (42.8-82.8); RBC 3.67 M/mm3 (3.60-5.2); RDW 12.7 % (11.6-15.6); WHITE BLOOD COUNT 11.9 K/mm3 (4.0-10.0)
[2019-03-02 11:07] LABS: ALBUMIN 3.3 g/dl (3.4-5.0); BILIRUBIN,TOTAL 0.5 mg/dL (0.2-1); BLOOD UREA NITROGEN 24.9 mg/dL (7-18); CREATININE 0.9 mg/dL (0.55-1.3); POTASSIUM 3.5 mmol/L (3.5-5.1); TOT PROT 6.2 g/dl (6.4-8.2)
[2019-03-02] MEDS: THIAMINE HCL 200 MG/2 ML VIAL IVPB SCH (11:13)
--- NOTE | 2019-03-02 13:22 | PN ---
Progress Note (short form) - Note Progress Note: PULMONARY Still confused. States breathing slightly better. Vital Signs Period Temp Pulse Resp BP Sys/Gonzalez Pulse Ox Last 24 Hr 98 F-99.0 F 106-119 21-24 113-159/75-93 94-95 Gen: less tachypneic with speaking Heart: RRR Lung: decreased breath sounds at the bases, no wheezes Abd: soft, nontender Ext: no edema CBC, BMP 03/02/19 10:10 03/02/19 10:10 Active Medications Acetaminophen (Tylenol -) 650 mg PO Q8H PRN PRN Reason: PAIN LEVEL 1-5 Last Admin: 02/27/19 13:40 Dose: 650 mg Albuterol Sulfate (Ventolin 0.083% Nebulizer Soln -) 1 amp NEB Q4H PRN PRN Reason: SHORT OF BREATH/WHEEZING Albuterol/Ipratropium (Duoneb -) 1 amp NEB RQID [facility] Last Admin: 03/02/19 09:30 Dose: 1 amp Aspirin (Asa -) 81 mg PO DAILY [facility] Last Admin: 03/02/19 09:11 Dose: 81 mg Atorvastatin Calcium (Lipitor -) 40 mg PO HS [facility] Last Admin: 03/01/19 21:25 Dose: 40 mg Benzocaine/Menthol (Cepacol Lozenge -) 1 each MM Q2H PRN PRN Reason: SORE THROAT Last Admin: 02/27/19 09:19 Dose: 1 each Cyanocobalamin (Vitamin B12 Injection -) 1,000 mcg IM DAILY [facility] Stop: 03/05/19 10:01 Last Admin: 03/02/19 09:14 Dose: 1,000 mcg Fluticasone Propionate (Flonase -) 1 spray NS BID [facility] Last Admin: 03/02/19 09:54 Dose: Not Given Folic Acid (Folic Acid -) 1 mg PO DAILY [facility] Last Admin: 03/02/19 09:12 Dose: 1 mg Guaifenesin (Diabetic Tussin Dm -) 10 ml PO Q6H PRN PRN Reason: COUGH Last Admin: 02/28/19 17:14 Dose: 10 ml Heparin Sodium (Porcine) (Heparin -) 5,000 unit SQ BID [facility] Last Admin: 03/02/19 09:12 Dose: 5,000 unit Ceftriaxone Sodium 1 gm/ (Dextrose) 50 mls @ 200 mls/hr IVPB DAILY [facility]; Protocol Last Admin: 03/02/19 09:11 Dose: 200 mls/hr Insulin Aspart (Novolog Vial Sliding Scale -) 1 vial SQ ACHS [facility]; Protocol Last Admin: 03/02/19 11:24 Dose: 4 units Loratadine (Claritin -) 10 mg PO DAILY [facility] Last Admin: 03/02/19 09:13 Dose: 10 mg Methimazole (Tapazole -) 5 mg PO BID [facility] Last Admin: 03/02/19 09:13 Dose: 5 mg Methylprednisolone Sodium Succinate (Solu-Medrol -) 40 mg IVPUSH DAILY [facility] Last Admin: 03/02/19 09:11 Dose: 40 mg Metoprolol Succinate (Toprol Xl -) 12.5 mg PO DAILY [facility] Last Admin: 03/02/19 09:12 Dose: 12.5 mg Nystatin (Nystatin) 500,000 unit PO TID [facility] Last Admin: 03/02/19 06:43 Dose: Not Given Olanzapine (Zyprexa -) 10 mg PO HS [facility] Last Admin: 03/01/19 21:27 Dose: 10 mg Potassium Phos/Sodium Phos (Phos-Nak Packet -) 1 packet PO DAILY [facility] Last Admin: 03/02/19 09:11 Dose: 1 packet Sodium Chloride ([place] -) 2 spray NS TID PRN PRN Reason: NASAL CONGESTION Thiamine HCl (Vitamin B1 Injection -) 200 mg IVPB DAILY [facility] Last Admin: 03/02/19 11:13 Dose: 200 mg A/P Acute COPD Exacerbation Acute Bronchitis/Sinusitis HTN Hyperlipidemia Nonspecific Lung Nodules - will d/c steroids - inhaled bronchodilators standing and PRN - continue antibiotics - o2 to keep SpO2 >90% - outpt f/u of lung nodules - DVT prophylaxis Problem List - Problems (1) COPD exacerbation Code(s): J44.1 - CHRONIC OBSTRUCTIVE PULMONARY DISEASE W (ACUTE) EXACERBATION
[2019-03-02] MEDS: guaiFENesin/D-M SUGAR-FREE/ACLHOL-FREE 118 ML BOTTLE PO PRN (14:30)
[2019-03-02 17:26] LABS: ANISOCYTOSIS 1+; MACROCYTOSIS 1+; PLATELET ESTIMATE NORMAL
[2019-03-02 19:47] LABS: PLATELET COUNT 445 K/MM3 (134-434)
[2019-03-02] MEDS: OLANZapine 10 MG TABLET PO SCH (22:18)
[2019-03-02] MEDS: ATORVASTATIN CA 40 MG TABLET (FP) PO SCH (22:18)
--- NOTE | 2019-03-02 22:46 | HOSP ---
Subjective - Review of Symptoms Events since last encounter: Hospitalist Encounter Notified by RN that the patient is febrile and tachycardic. Subjective: Arrived to bedside, patient is awake, alert to name only- current baseline. PE performed see EMR Assessment: This is a 73 y/o woman with a PMHx of COPD, OA, Pre Diabetes, HTN, HLD. Admitted for Acute Hypoxic Respiratory Failure secondary to COPD Exacerbation. Plan EKG Rectal Temp Continue to monitor Physical Examination Vital Signs: Vital Signs Temperature 99.9 F H 03/02/19 22:00 Pulse Rate 126 H 03/02/19 22:00 Respiratory Rate 24 H 03/02/19 22:00 Blood Pressure 161/80 03/02/19 22:00 O2 Sat by Pulse Oximetry (%) 95 03/02/19 09:00 Constitutional: Yes: Obese, Other (confused, restless) Eyes: Yes: Conjunctiva Clear, PERRL HENT: Yes: WNL, Atraumatic, Normocephalic Neck: Yes: WNL, Supple, Trachea Midline Cardiovascular: Yes: Tachycardia, S1, S2 Respiratory: Yes: Diminished, Rhonchi Gastrointestinal: Yes: WNL, Normal Bowel Sounds, Soft, Abdomen, Obese Neurological: Yes: Confusion, Cran Nerves II-XII Intact Psychiatric: Yes: Other (Restless) Labs: CBC, BMP 03/02/19 10:10 03/02/19 10:10 Hospitalist Encounter Outcome: Reviewed EKG- ST no change compared to prior study T- 100.5 Addendum 04:52-Rapid Response and Code 99 called on patient CPR and resuscitative measures was initiated by the RR team Patient was intubated by Anesthesia and transferred to ICU, where the ICU resident continued care Patient's daughter was notified and arrived to unit. Patient became asystolic, CPR resumed, resuscitative measures resumed, ROSC achieved, IV Pressors started Patient's condition- guarded [id number]- Call placed to the primary PCP's service to inform of overnight's events [phone]-- [facility] [employer] [employer] Mariama responded, who was appraised of overnight 's events Critical Care Total Critical Care Time (in minutes): 50 Critical Care Statement: The care of this patient involved high complexity decision making to prevent further life threatening deterioration of the patient 's condition and/or to evaluate & treat vital organ system(s) failure or risk of failure.
[2019-03-03] MEDS ORDERED: LORazepam 2 MG/ML SDV VIAL IVPUSH ONE (02:12)
[2019-03-03] MEDS: VASOPRESSIN 50 UNITS in SODIUM CHLORIDE 97.5 ML IVPB SCH ×2 (05:00→13:18)
--- NOTE | 2019-03-03 05:11 | RAPID ---
Physical Examination Vital Signs: Vital Signs Temperature 100.2 F H 03/02/19 23:08 Pulse Rate 126 H 03/02/19 22:00 Respiratory Rate 24 H 03/02/19 22:00 Blood Pressure 161/80 03/02/19 22:00 O2 Sat by Pulse Oximetry (%) 94 L 03/02/19 21:00 Labs: CBC, BMP 03/02/19 10:10 03/02/19 10:10 Rapid Response - Rapid Response Assessment: Code 99 called on the unit. ACLS protocol started. ROSC achieved. Please see ACLS sheet for details.
[2019-03-03] MEDS ORDERED: NOREPINEPHRINE BITARTRATE 4,000 MCG in DEXTROSE 5%-WATER - 496 ML IV SCH (06:15)
[2019-03-03] MEDS ORDERED: NOREPINEPHRINE BITARTRATE 4 MG/4 ML ML IV ONE (06:22)
[2019-03-03 06:26] LABS: BASO % 0.2 % (0-2.0); EOS % 0.1 % (0-4.5); HEMATOCRIT 31.4 % (32.4-45.2); HEMOGLOBIN 10.6 GM/dL (10.7-15.3); LYMPH % 16.2 % (8-40); MCH 32.9 pg (25.7-33.7); MCHC 33.7 g/dl (32.0-36.0); MEAN CELL VOLUME 97.6 fl (80-96); MEAN PLT VOLUME 7.4 fl (7.5-11.1); MONO % 4.1 % (3.8-10.2); NEUT % 79.4 % (42.8-82.8); PLATELET COUNT 248 K/MM3 (134-434); RBC 3.22 M/mm3 (3.60-5.2); WHITE BLOOD COUNT 18.1 K/mm3 (4.0-10.0)
[2019-03-03] MEDS: NOREPINEPHRINE BITARTRATE 8,000 MCG in DEXTROSE 5%-WATER - 492 ML IV SCH (06:30)
--- NOTE | 2019-03-03 06:47 | CONSULT ---
Consultation: CONSULT REQUEST: We have been asked to medically evaluate this patient for s/p cardiac arrest HISTORY OF PRESENT ILLNESS: 73 year old female with a past medical history of COPD, OA, PreDM2, HTN, HLD presented to the hospital for wheezing and dyspnea on exertion and productive cough. Given zyrtec by PCP before presenting with no relief. Admitted for acute hypoxic respiratory failure 2/2 COPD exacerbation. During her hospital course, she was on levaquin and IV steroids. Tonight, patient had a sudden cardiac arrest on the floor. ROSC was achieved, after which patient arrested again on the floor prior to arriving to the ICU. She received several rounds of epinephrine, bicarbonate, and 1 unsynchronized cardioversion. She returned to ROSC again and was brought to the ICU. She arrested once again in the ICU, requiring peripheral vasopressin to maintain her mean arterial pressures prior to inserting a right IJ central line. Peripheral levophed was started. REVIEW OF SYSTEMS: unable to assess due to mental status PHYSICAL EXAMINATION Vital Signs - 24 hr 03/02/19 03/02/19 03/02/19 09:00 10:00 14:47 Temperature 98 F 98.3 F Pulse Rate 115 H 121 H Respiratory 22 H 22 H 22 H Rate Blood Pressure 113/75 135/65 O2 Sat by Pulse 95 Oximetry (%) 03/02/19 03/02/19 03/02/19 18:00 21:00 22:00 Temperature 97.8 F 99.9 F H Pulse Rate 116 H 126 H Respiratory 20 24 H Rate Blood Pressure 147/86 161/80 O2 Sat by Pulse 94 L Oximetry (%) 03/02/19 03/03/19 03/03/19 23:08 05:30 05:45 Temperature 100.2 F H Pulse Rate 150 H 111 H Respiratory 15 16 Rate Blood Pressure 148/58 L 99/51 L O2 Sat by Pulse Oximetry (%) 03/03/19 06:00 Temperature Pulse Rate 112 H Respiratory 18 Rate Blood Pressure 125/50 L O2 Sat by Pulse Oximetry (%) GENERAL: A&Ox0, intubated and sedated EYES: PERRL ENT: Moist mucus membranes, intubated NECK: No JVD LUNGS: Coarse breath sounds HEART: tachycardic, mild systolic murmur noted on exam ABDOMEN: Obese, soft and nontender EXTREMITIES: 1+ edema NEUROLOGICAL: unable to assess due to mental status Laboratory Results - last 24 hr 03/02/19 03/02/19 03/02/19 06:41 10:10 10:10 WBC 11.9 H RBC 3.67 Hgb 11.9 Hct 35.1 MCV 95.8 MCH 32.3 MCHC 33.7 RDW 12.7 Plt Count 445 H D MPV 7.3 L Absolute Neuts (auto) 9.9 H Neutrophils % 83.4 H Neutrophils % (Manual) 88.9 H Band Neutrophils % 0.0 Lymphocytes % 6.5 L Lymphocytes % (Manual) 6.1 L Monocytes % 10.0 Monocytes % (Manual) 5 Eosinophils % 0.0 D Eosinophils % (Manual) 0.0 Basophils % 0.1 Basophils % (Manual) 0.0 Myelocytes % (Man) 0 Promyelocytes % (Man) 0 Blast Cells % (Manual) 0 Nucleated RBC % 0 Metamyelocytes 0 Hypochromia 0 Platelet Estimate Normal Polychromasia 1+ Poikilocytosis 0 Anisocytosis 1+ Microcytosis 0 Macrocytosis 1+ Sodium 135 L Potassium 3.5 Chloride 96 L Carbon Dioxide 31 Anion Gap 8 BUN 24.9 H Creatinine 0.9 Est GFR (CKD-EPI)AfAm 73.52 Est GFR (CKD-EPI)NonAf 63.43 POC Glucometer 128 Random Glucose 178 H Hemoglobin A1c % Lactic Acid Calcium 9.0 Total Bilirubin 0.5 AST 43 H ALT 52 Alkaline Phosphatase 69 Total Protein 6.2 L Albumin 3.3 L 03/02/19 03/02/19 03/02/19 10:10 11:18 16:32 WBC RBC Hgb Hct MCV MCH MCHC RDW Plt Count MPV Absolute Neuts (auto) Neutrophils % Neutrophils % (Manual) Band Neutrophils % Lymphocytes % Lymphocytes % (Manual) Monocytes % Monocytes % (Manual) Eosinophils % Eosinophils % (Manual) Basophils % Basophils % (Manual) Myelocytes % (Man) Promyelocytes % (Man) Blast Cells % (Manual) Nucleated RBC % Metamyelocytes Hypochromia Platelet Estimate Polychromasia Poikilocytosis Anisocytosis Microcytosis Macrocytosis Sodium Potassium Chloride Carbon Dioxide Anion Gap BUN Creatinine Est GFR (CKD-EPI)AfAm Est GFR (CKD-EPI)NonAf POC Glucometer 219 173 Random Glucose Hemoglobin A1c % 6.4 H Lactic Acid Calcium Total Bilirubin AST ALT Alkaline Phosphatase Total Protein Albumin 03/02/19 03/03/19 22:15 05:30 WBC RBC Hgb Hct MCV MCH MCHC RDW Plt Count MPV Absolute Neuts (auto) Neutrophils % Neutrophils % (Manual) Band Neutrophils % Lymphocytes % Lymphocytes % (Manual) Monocytes % Monocytes % (Manual) Eosinophils % Eosinophils % (Manual) Basophils % Basophils % (Manual) Myelocytes % (Man) Promyelocytes % (Man) Blast Cells % (Manual) Nucleated RBC % Metamyelocytes Hypochromia Platelet Estimate Polychromasia Poikilocytosis Anisocytosis Microcytosis Macrocytosis Sodium Potassium Chloride Carbon Dioxide Anion Gap BUN Creatinine Est GFR (CKD-EPI)AfAm Est GFR (CKD-EPI)NonAf POC Glucometer 138 Random Glucose Hemoglobin A1c % Lactic Acid 9.4 H* Calcium Total Bilirubin AST ALT Alkaline Phosphatase Total Protein Albumin Active Medications Generic Name Dose Route Start Last Admin Trade Name Freq PRN Reason Stop Dose Admin Acetaminophen 650 mg 02/27/19 12:49 02/27/19 13:40 Tylenol - PO 650 mg Q8H PRN Administration PAIN LEVEL 1-5 Albuterol Sulfate 1 amp 02/28/19 10:27 Ventolin 0.083% Nebulizer Soln - NEB Q4H PRN SHORT OF BREATH/WHEEZING Albuterol/Ipratropium 1 amp 02/26/19 08:00 03/02/19 21:30 Duoneb - NEB 1 amp RQID [facility] Administration Aspirin 81 mg 02/26/19 10:00 03/02/19 09:11 Asa - PO 81 mg DAILY [facility] Administration Atorvastatin Calcium 40 mg 02/25/19 22:00 03/02/19 22:18 Lipitor - PO 40 mg HS [facility] Administration Benzocaine/Menthol 1 each 02/26/19 18:19 02/27/19 09:19 Cepacol Lozenge - MM 1 each Q2H PRN Administration SORE THROAT Cyanocobalamin 1,000 mcg 02/27/19 10:45 03/02/19 09:14 Vitamin B12 Injection - IM 03/05/19 10:01 1,000 mcg DAILY [facility] Administration Fluticasone Propionate 1 spray 02/27/19 22:00 03/02/19 22:18 Flonase - NS Not Given BID [facility] Folic Acid 1 mg 02/27/19 10:45 03/02/19 09:12 Folic Acid - PO 1 mg DAILY [facility] Administration Guaifenesin 10 ml 02/25/19 21:29 03/02/19 14:30 Diabetic Tussin Dm - PO 10 ml Q6H PRN Administration COUGH Heparin Sodium (Porcine) 5,000 unit 02/25/19 22:00 03/02/19 22:18 Heparin - SQ 5,000 unit BID [facility] Administration Ceftriaxone Sodium 1 gm/ 50 mls @ 200 mls/hr 02/26/19 10:00 03/02/19 09:11 Dextrose IVPB 200 mls/hr DAILY [facility] Administration Protocol Vasopressin 50 units/ Sodium 100 mls @ 4 mls/hr 03/03/19 05:30 Chloride IVPB ASDIR [facility] Protocol 2 UNITS/HR Norepinephrine Bitartrate 8, 500 mls @ 18.75 mls/hr 03/03/19 06:30 000 mcg/ Dextrose IV TITR [facility] Protocol 5 MCG/MIN Insulin Aspart 1 vial 02/25/19 22:00 03/02/19 22:17 Novolog Vial Sliding Scale - SQ Not Given ACHS [facility] Protocol Loratadine 10 mg 02/27/19 15:30 03/02/19 09:13 Claritin - PO 10 mg DAILY [facility] Administration Methimazole 5 mg 03/01/19 22:00 03/02/19 22:18 Tapazole - PO 5 mg BID [facility] Administration Methylprednisolone Sodium Succinate 20 mg 03/03/19 10:00 Solu-Medrol - IVPUSH DAILY [facility] Metoprolol Succinate 12.5 mg 02/26/19 10:00 03/02/19 09:12 Toprol Xl - PO 12.5 mg DAILY [facility] Administration Nystatin 500,000 unit 03/01/19 22:00 03/02/19 22:18 Nystatin PO 500,000 unit TID [facility] Administration Olanzapine 10 mg 03/01/19 22:00 03/02/19 22:18 Zyprexa - PO 10 mg HS [facility] Administration Potassium Phos/Sodium Phos 1 packet 03/01/19 10:00 03/02/19 09:11 Phos-Nak Packet - PO 1 packet DAILY [facility] Administration Sodium Chloride 2 spray 02/27/19 15:21 [place] Nasal [place] - NS TID PRN NASAL CONGESTION Thiamine HCl 200 mg 02/27/19 10:45 03/02/19 11:13 Vitamin B1 Injection - IVPB 200 mg DAILY [facility] Administration ASSESSMENT/PLAN: 73 year old female with a past medical history of COPD, OA, PreDM2, HTN, HLD presented to the hospital for wheezing and dyspnea on exertion and productive cough admitted for acute on chronic hypoxic respiratory respiratory failure 2/2 COPD exacerbation. S/P cardiac arrest #Cardiovascular -patient is s/p cardiac arrest. Unclear etiology at present time -patient had 3 episodes of cardiac arrest between the following times: [phone] [phone] [phone] -ROSC was achieved. Patient is currently on levophed 10 and vasopressin 6 and maintaining a MAP of 75 -differentials include pulmonary embolism, myocardial infarction, acute arrhythmia, hypoxia, or acidosis -due to high clinical suspicion of pulmonary embolism (immobility, tachypnea, hypoxia, sinus tachycardia), will empirically treat with heparin ggt -troponins were elevated at 0.17, repeat -EKG prior to the code showed sinus tachycardia. Will repeat EKG now -duplex lower extremity ultrasounds -patient is on fluids -echocardiogram ordered -cardiology consultation -therapeutic hypothermia -lactic acid 9.4, repeat #Neurological -Currently not alert or oriented and only slightly responsive without sedation #Pulmonary -intubated and not yet sedated -repeat CXR -vent settings RR 15, TV 450, FI02 100%, PEEP 5 -hold steroids -repeat ABG #Gastrointestinal -severe elevation in transaminases likely 2/2 shock liver due to hypoperfusion of liver #Renal -slight CARL with a creatinine of 1.6, likely 2/2 hypoperfusion -patient is receiving fluids -will hydrate and recheck a BMP #Infectious Disease -WBC increased to 18.1 s/p arrest, likely reactive, can continue to monitor -ABG directly post arrest was 7.22, pCO2 56.2, HCO3 22.2 #Prophylaxis -on heparin ggt for high suspicion of PE Dispo: We will continue to follow the patient. Thank you for this consultative opportunity. Visit type - Emergency Visit Emergency Visit: No - New Patient This patient is new to me today: No - Critical Care Critical Care patient: Yes Total Critical Care Time (in minutes): 80 Critical Care Statement: The care of this patient involved high complexity decision making to prevent further life threatening deterioration of the patient 's condition and/or to evaluate & treat vital organ system(s) failure or risk of failure.
[2019-03-03] MEDS ORDERED: HEPARIN NA (PORCINE) 5,000 UNITS/ML 1ML VIAL IVPUSH ONE (06:48)
[2019-03-03] MEDS ORDERED: HEPARIN NA (PORCINE) 5,000 UNITS/ML 1ML VIAL IVPUSH PRN ×2 (06:48)
[2019-03-03 06:53] LABS: ARTERIAL BLD GAS O2 SATURATION 99.5 % (95-98); ARTERIAL BLOOD GAS BASE EXCESS -5.2 meq/l (-2-2); ARTERIAL BLOOD GAS PCO2 56.2 mmHg (35-45); ARTERIAL BLOOD GAS PO2 305 mmHg (80-105); ARTERIAL BLOOD GAS pH 7.22 (7.35-7.45)
[2019-03-03 06:54] LABS: ALLENS TEST POSITIVE
[2019-03-03 06:56] LABS: ALBUMIN 2.4 g/dl (3.4-5.0); BILIRUBIN,TOTAL 0.8 mg/dL (0.2-1); BLOOD UREA NITROGEN 28.7 mg/dL (7-18); CALCIUM 7.8 mg/dL (8.5-10.1); CREATININE 1.6 mg/dL (0.55-1.3); POTASSIUM 4.6 mmol/L (3.5-5.1); TOT PROT 4.9 g/dl (6.4-8.2)
[2019-03-03] MEDS ORDERED: SODIUM CHLORIDE 1,000 ML IV STA (07:47)
[2019-03-03] MEDS ORDERED: SODIUM CHLORIDE 500 ML IV STA (07:47)
[2019-03-03] MEDS: NYSTATIN 500,000 UNITS TABLET PO SCH ×3 (07:58→23:52)
[2019-03-03] MEDS ORDERED: levETIRAcetam 500 MG/5 ML INJECTION VIAL IVPB ONE (08:00)
[2019-03-03] MEDS: INSULIN SLIDING SCALE (NOVOLOG) 1 VIAL SQ SCH ×5 (08:02→21:49)
--- NOTE | 2019-03-03 08:08 | PN ---
Physical Exam: SUBJECTIVE: Patient seen and examined at bedside. Patient had three cardiac arrest overnight. Patient is intubated, unresponsive to sternal rub. Quivering of her left lower lip noted, concern for seizure activity. OBJECTIVE: Vital Signs Period Temp Pulse Resp BP Sys/Gonzalez Pulse Ox Last 24 Hr 97.8 F-100.2 F 101-150 15-24 72-161/42-86 94-96 GENERAL: The patient is intubated. HEENT: Normocephalic. Pupils 1mm. Sclera anicteric. Dry mucous membranes. NECK: Supple, without lymphadenopathy LUNGS: Mechanical breath sounds, equal air entry bilaterally. Faint rhonchi auscultated bilaterally. HEART: Tachycardic. S1, S2 auscultated without murmur, rub or gallop. ABDOMEN: Obese abdomen. Soft, mildly distended. Hypoactive bowel sounds x4 quadrants. Hepatomegaly palpated and percussed 2cm below costal margin. EXTREMITIES: 1+ radial, dorsalis pedis pulses bilaterally. Cool extremities. 1+ pitting edema bilateral lower extremities. NEUROLOGICAL: Patient is sedated. Unresponsive to sternal rub. SKIN: Warm, dry. Eccchymosis noted along abdomen. Laboratory Results - last 24 hr 03/02/19 03/02/19 03/02/19 10:10 10:10 10:10 WBC 11.9 H RBC 3.67 Hgb 11.9 Hct 35.1 MCV 95.8 MCH 32.3 MCHC 33.7 RDW 12.7 Plt Count 445 H D MPV 7.3 L Absolute Neuts (auto) 9.9 H Neutrophils % 83.4 H Neutrophils % (Manual) 88.9 H Band Neutrophils % 0.0 Lymphocytes % 6.5 L Lymphocytes % (Manual) 6.1 L Monocytes % 10.0 Monocytes % (Manual) 5 Eosinophils % 0.0 D Eosinophils % (Manual) 0.0 Basophils % 0.1 Basophils % (Manual) 0.0 Myelocytes % (Man) 0 Promyelocytes % (Man) 0 Blast Cells % (Manual) 0 Nucleated RBC % 0 Metamyelocytes 0 Hypochromia 0 Platelet Estimate Normal Polychromasia 1+ Poikilocytosis 0 Anisocytosis 1+ Microcytosis 0 Macrocytosis 1+ Puncture Site ABG pH ABG pCO2 at Pt Temp ABG pO2 at Pt Temp ABG HCO3 ABG O2 Sat (Measured) ABG O2 Content ABG Base Excess Braden Test O2 Delivery Device Oxygen Flow Rate Vent Mode Vent Rate Mechanical Rate PEEP Pressure Support Vent Sodium 135 L Potassium 3.5 Chloride 96 L Carbon Dioxide 31 Anion Gap 8 BUN 24.9 H Creatinine 0.9 Est GFR (CKD-EPI)AfAm 73.52 Est GFR (CKD-EPI)NonAf 63.43 POC Glucometer Random Glucose 178 H Hemoglobin A1c % 6.4 H Lactic Acid Calcium 9.0 Total Bilirubin 0.5 AST 43 H ALT 52 Alkaline Phosphatase 69 Troponin I Total Protein 6.2 L Albumin 3.3 L 03/02/19 03/02/19 03/02/19 11:18 16:32 22:15 WBC RBC Hgb Hct MCV MCH MCHC RDW Plt Count MPV Absolute Neuts (auto) Neutrophils % Neutrophils % (Manual) Band Neutrophils % Lymphocytes % Lymphocytes % (Manual) Monocytes % Monocytes % (Manual) Eosinophils % Eosinophils % (Manual) Basophils % Basophils % (Manual) Myelocytes % (Man) Promyelocytes % (Man) Blast Cells % (Manual) Nucleated RBC % Metamyelocytes Hypochromia Platelet Estimate Polychromasia Poikilocytosis Anisocytosis Microcytosis Macrocytosis Puncture Site ABG pH ABG pCO2 at Pt Temp ABG pO2 at Pt Temp ABG HCO3 ABG O2 Sat (Measured) ABG O2 Content ABG Base Excess Braden Test O2 Delivery Device Oxygen Flow Rate Vent Mode Vent Rate Mechanical Rate PEEP Pressure Support Vent Sodium Potassium Chloride Carbon Dioxide Anion Gap BUN Creatinine Est GFR (CKD-EPI)AfAm Est GFR (CKD-EPI)NonAf POC Glucometer 219 173 138 Random Glucose Hemoglobin A1c % Lactic Acid Calcium Total Bilirubin AST ALT Alkaline Phosphatase Troponin I Total Protein Albumin 03/03/19 03/03/19 03/03/19 05:30 05:30 05:30 WBC 18.1 H RBC 3.22 L Hgb 10.6 L Hct 31.4 L MCV 97.6 H MCH 32.9 MCHC 33.7 RDW 13.0 Plt Count 248 D MPV 7.4 L Absolute Neuts (auto) 14.4 H Neutrophils % 79.4 Neutrophils % (Manual) Band Neutrophils % Lymphocytes % 16.2 D Lymphocytes % (Manual) Monocytes % 4.1 Monocytes % (Manual) Eosinophils % 0.1 D Eosinophils % (Manual) Basophils % 0.2 Basophils % (Manual) Myelocytes % (Man) Promyelocytes % (Man) Blast Cells % (Manual) Nucleated RBC % 1 H Metamyelocytes Hypochromia Platelet Estimate Polychromasia Poikilocytosis Anisocytosis Microcytosis Macrocytosis Puncture Site ABG pH ABG pCO2 at Pt Temp ABG pO2 at Pt Temp ABG HCO3 ABG O2 Sat (Measured) ABG O2 Content ABG Base Excess Braden Test O2 Delivery Device Oxygen Flow Rate Vent Mode Vent Rate Mechanical Rate PEEP Pressure Support Vent Sodium 139 Potassium 4.6 Chloride 99 Carbon Dioxide 24 Anion Gap 16 BUN 28.7 H Creatinine 1.6 H Est GFR (CKD-EPI)AfAm 36.67 Est GFR (CKD-EPI)NonAf 31.64 POC Glucometer Random Glucose 180 H Hemoglobin A1c % Lactic Acid 9.4 H* Calcium 7.8 L Total Bilirubin 0.8 AST 4073 H ALT 3965 H Alkaline Phosphatase 66 Troponin I 0.17 H Total Protein 4.9 L Albumin 2.4 L 03/03/19 06:40 WBC RBC Hgb Hct MCV MCH MCHC RDW Plt Count MPV Absolute Neuts (auto) Neutrophils % Neutrophils % (Manual) Band Neutrophils % Lymphocytes % Lymphocytes % (Manual) Monocytes % Monocytes % (Manual) Eosinophils % Eosinophils % (Manual) Basophils % Basophils % (Manual) Myelocytes % (Man) Promyelocytes % (Man) Blast Cells % (Manual) Nucleated RBC % Metamyelocytes Hypochromia Platelet Estimate Polychromasia Poikilocytosis Anisocytosis Microcytosis Macrocytosis Puncture Site Right radial ABG pH 7.22 L ABG pCO2 at Pt Temp 56.2 H ABG pO2 at Pt Temp 305 H ABG HCO3 22.2 ABG O2 Sat (Measured) 99.5 H ABG O2 Content 13.8 L ABG Base Excess -5.2 L Braden Test Positive O2 Delivery Device Vent Oxygen Flow Rate 100% Vent Mode A/c Vent Rate 15 Mechanical Rate Yes PEEP 5.0 Pressure Support Vent 450 Sodium Potassium Chloride Carbon Dioxide Anion Gap BUN Creatinine Est GFR (CKD-EPI)AfAm Est GFR (CKD-EPI)NonAf POC Glucometer Random Glucose Hemoglobin A1c % Lactic Acid Calcium Total Bilirubin AST ALT Alkaline Phosphatase Troponin I Total Protein Albumin Active Medications Generic Name Dose Route Start Last Admin Trade Name Freq PRN Reason Stop Dose Admin Acetaminophen 650 mg 02/27/19 12:49 02/27/19 13:40 Tylenol - PO 650 mg Q8H PRN Administration PAIN LEVEL 1-5 Albuterol Sulfate 1 amp 02/28/19 10:27 Ventolin 0.083% Nebulizer Soln - NEB Q4H PRN SHORT OF BREATH/WHEEZING Aspirin 81 mg 02/26/19 10:00 03/02/19 09:11 Asa - PO 81 mg DAILY STU Administration Atorvastatin Calcium 40 mg 02/25/19 22:00 03/02/19 22:18 Lipitor - PO 40 mg HS STU Administration Benzocaine/Menthol 1 each 02/26/19 18:19 02/27/19 09:19 Cepacol Lozenge - MM 1 each Q2H PRN Administration SORE THROAT Cyanocobalamin 1,000 mcg 02/27/19 10:45 03/02/19 09:14 Vitamin B12 Injection - IM 03/05/19 10:01 1,000 mcg DAILY STU Administration Fluticasone Propionate 1 spray 02/27/19 22:00 03/02/19 22:18 Flonase - NS Not Given BID STU Folic Acid 1 mg 02/27/19 10:45 03/02/19 09:12 Folic Acid - PO 1 mg DAILY STU Administration Guaifenesin 10 ml 02/25/19 21:29 03/02/19 14:30 Diabetic Tussin Dm - PO 10 ml Q6H PRN Administration COUGH Heparin Sodium (Porcine) 3,500 unit 03/03/19 06:48 Heparin - 40 unit/kg (3500 unit) IVPUSH PRN PRN For aPTT 35 to 45 seconds Heparin Sodium (Porcine) 7,000 unit 03/03/19 06:48 Heparin - 80 unit/kg (7000 unit) IVPUSH PRN PRN aPTT <35 seconds Ceftriaxone Sodium 1 gm/ 50 mls @ 200 mls/hr 02/26/19 10:00 03/02/19 09:11 Dextrose IVPB 200 mls/hr DAILY STU Administration Protocol Vasopressin 50 units/ Sodium 100 mls @ 4 mls/hr 03/03/19 05:30 03/03/19 05:15 Chloride IVPB 6 units/hr ASDIR STU 12 mls/hr Titration Protocol 2 UNITS/HR Norepinephrine Bitartrate 8, 500 mls @ 18.75 mls/hr 03/03/19 06:30 03/03/19 06:40 000 mcg/ Dextrose IV 10 mcg/min TITR STU 37.5 mls/hr Titration Protocol 5 MCG/MIN Heparin Sodium/Dextrose 25,000 units in 500 mls @ 31.515 mls/hr 03/03/19 07: 00 Heparin Infusion - IVPB TITR STU Protocol 18 UNITS/KG/HR Sodium Chloride 1,000 mls @ 1,000 mls/hr 03/03/19 07:47 03/03/19 05:00 Normal Saline - IV 03/03/19 08:46 1,000 mls/hr ASDIR STA Administration Sodium Chloride 500 mls @ 500 mls/hr 03/03/19 07:47 03/03/19 06:00 Normal Saline - IV 03/03/19 08:46 500 mls/hr ASDIR STA Administration Insulin Aspart 1 vial 02/25/19 22:00 03/03/19 08:02 Novolog Vial Sliding Scale - SQ 2 units ACHS STU Administration Protocol Loratadine 10 mg 02/27/19 15:30 03/02/19 09:13 Claritin - PO 10 mg DAILY STU Administration Methimazole 5 mg 03/01/19 22:00 03/02/19 22:18 Tapazole - PO 5 mg BID STU Administration Methylprednisolone Sodium Succinate 20 mg 03/03/19 10:00 Solu-Medrol - IVPUSH DAILY STU Metoprolol Succinate 12.5 mg 02/26/19 10:00 03/02/19 09:12 Toprol Xl - PO 12.5 mg DAILY STU Administration Nystatin 500,000 unit 03/01/19 22:00 03/03/19 07:58 Nystatin PO Not Given TID STU Olanzapine 10 mg 03/01/19 22:00 03/02/19 22:18 Zyprexa - PO 10 mg HS STU Administration Potassium Phos/Sodium Phos 1 packet 03/01/19 10:00 03/02/19 09:11 Phos-Nak Packet - PO 1 packet DAILY STU Administration Sodium Chloride 2 spray 02/27/19 15:21 [place] Nas[place] - NS TID PRN NASAL CONGESTION Thiamine HCl 200 mg 02/27/19 10:45 03/02/19 11:13 Vitamin B1 Injection - IVPB 200 mg DAILY STU Administration ASSESSMENT/PLAN: Patient is a 73 year old female with history of COPD, hypertension, hyperlipidemia, osteoarthritis, pre-diabetes, presented with complaint of shortness of breath. Admitted to ICU after cardiac arrest. Neurologic -Patient is sedated on Versed, Fentanyl drip. Patient was unresponsive to voice , and sternal rub prior to initiation of sedation -Hold Olanzapine while patient sedated -Monitor for signs of mental status changes -Neurology consult (Dr. Jimenez) appreciated Cardiac S/P three episodes cardiac arrest Afib vs. SVT History of hypertension History of hyperlipidemia -EKG shows -Troponin 0.17 -> 0.83. Trend to peak -Patient started on Heparin drip. Follow PTT -Hypothermia protocol initiated -Hydrocortisone 100mg IV Q8H stress dose steroids -Patient recieved Adenosine 6mg IV, and 12mg IV push. Amiodarone 150mg IV -Amiodarone drip -Cardiac ECHO -Cardiac monitoring -CVP monitoring -Cardiology recommendations (Dr. Lorenzo) appreciated Pulmonary -Intubated. Ventilator settings RR 15, TV 450 FiO2 60%, PEEP 5 -Chest radiograph shows -ABG pH 7.20, CO2 52.2, O2 211, HCO3 25.1. Suggestive of respiratory acidosis -Maintain oxygen saturation greater than 90% -Daily CXR -Repeat ABG tomorrow morning. -CTA chest to evaluate for pulmonary embolism (once creatinine improves). Duplex US lower extremities negative for pulmonary embolism. Gastrointestinal -Currently NPO while intubated -Transamitis likely secondary to shock. AST 4073, ALT 3965, Alkaline phosphatase 66, total bilirubin 0.9 -Will trend CMP Renal -CARL likely secondary to hypoperfusion -BUN 28.6 / Cr 1.4 -Follow slade catheter output -Will trend CMP -Nephrology recommendations (Dr. Olmedo) appreciated Infectious disease -WBC increased to 27.1 s/p cardiac arrest. -Repeat blood, urine cultures -Meropenem 500mg IV Q8H -Vancomycin 1000mg IV Q24H -Random Vancomycin level tomorrow -Infectious disease recommendations (Dr. Pepe) appreciated. FEN -Fluids: No IV fluids currently indicated. -Electrolytes: Currently, within normal limits. Follow CMP, replete as necessary. -Nutrition: NPO while intubated. Prophylaxis -Patient is on Heparin drip -Protonix 40mg IV daily Disposition -Continue care in ICU Visit type - Emergency Visit Emergency Visit: Yes ED Registration Date: 02/25/19 Care time: The patient presented to the Emergency Department on the above date and was hospitalized for further evaluation of their emergent condition. - New Patient This patient is new to me today: Yes Date on this admission: 03/03/19 - Critical Care Critical Care patient: Yes Total Critical Care Time (in minutes): 37 Critical Care Statement: The care of this patient involved high complexity decision making to prevent further life threatening deterioration of the patient 's condition and/or to evaluate & treat vital organ system(s) failure or risk of failure. - Discharge Referral Referred to [facility] Med P.C.: No
[2019-03-03] MEDS ORDERED: cefTRIAXone SODIUM 1 GM VIAL ONE (08:36)
[2019-03-03] MEDS ORDERED: DEXTROSE 5%-WATER - 50 ML IVPB ONE (08:36)
[2019-03-03] MEDS: HEPARIN INFUSION - 25,000 UNITS/500 ML INFUS.BAG IVPB SCH ×2 (08:39→23:48)
[2019-03-03 08:45] LABS: HEMATOCRIT 32.5 % (32.4-45.2); HEMOGLOBIN 10.8 GM/dL (10.7-15.3); MCHC 33.3 g/dl (32.0-36.0); MEAN CELL VOLUME 95.9 fl (80-96); MEAN PLT VOLUME 7.1 fl (7.5-11.1); RBC 3.39 M/mm3 (3.60-5.2); RDW 12.9 % (11.6-15.6); WHITE BLOOD COUNT 27.1 K/mm3 (4.0-10.0)
[2019-03-03 08:53] LABS: ARTERIAL BLD GAS O2 SATURATION 99.5 % (95-98); ARTERIAL BLOOD GAS BASE EXCESS -1.2 meq/l (-2-2); ARTERIAL BLOOD GAS PCO2 52.2 mmHg (35-45); ARTERIAL BLOOD GAS PO2 211 mmHg (80-105)
[2019-03-03 09:04] LABS: ALLENS TEST POSITIVE
[2019-03-03] MEDS: CEFTRIAXONE 1 GM in DEXTROSE 5%-WATER - 50 ML IVPB SCH (09:05)
[2019-03-03 09:33] LABS: ANISOCYTOSIS 2+; MACROCYTOSIS 0; PLATELET ESTIMATE NORMAL; TEAR DROP CELLS 1+
[2019-03-03 09:33] LABS: ALBUMIN 2.4 g/dl (3.4-5.0); BILIRUBIN,TOTAL 0.9 mg/dL (0.2-1); BLOOD UREA NITROGEN 28.6 mg/dL (7-18); CALCIUM 7.3 mg/dL (8.5-10.1); CREATININE 1.4 mg/dL (0.55-1.3); MAGNESIUM 2.2 mg/dL (1.8-2.4); POTASSIUM 4.2 mmol/L (3.5-5.1); TOT PROT 4.9 g/dl (6.4-8.2)
[2019-03-03] MEDS ORDERED: ADENOSINE 6 MG/2 ML VIAL IVPUSH ONE ×3 (09:33→09:40)
[2019-03-03] MEDS ORDERED: AMIODARONE HCL 150 MG/3 ML VIAL ONE (09:43)
[2019-03-03] MEDS ORDERED: AMIODARONE IN DEXTROSE,ISO-OSM 360 MG/200 ML BAG ONE (09:43)
[2019-03-03] MEDS ORDERED: AMIODARONE HCL 150 MG/3 ML VIAL IVPUSH ONE (09:56)
[2019-03-03] MEDS ORDERED: methylPREDNISolone NA SUCC 40 MG/1 ML VIAL IVPUSH SCH (10:00)
--- NOTE | 2019-03-03 10:49 | PN ---
Teaching Attending Note Name of Resident: Freddy Blount ATTENDING PHYSICIAN STATEMENT I saw and evaluated the patient. I reviewed the resident's note and discussed the case with the resident. I agree with the resident's findings and plan as documented. SUBJECTIVE: Pt seen and examined in the ICU. Overnight events noted, s/p cardiac arrest x 3. Now intubated on levophed and vasopressin gtts. Tachycardic this AM with episodes of sinus and ?afib. OBJECTIVE: Vital Signs Period Temp Pulse Resp BP Sys/Gonzalez Pulse Ox Last 24 Hr 94.8 F-100.2 F 98-159 15-24 72-161/42-86 94-100 Intake & Output 02/28/19 03/01/19 03/02/19 03/03/19 23:59 23:59 23:59 23:59 Intake Total 500 605 065 1530 Output Total 510 Balance 500 002 352 8497 Weight 89.131 kg Gen: intubated, sedated Heart: RRR Lung: decreased breath sounds at the bases Abd: soft, nontender Ext: no edema CBC, BMP 03/03/19 08:19 03/03/19 08:19 Active Medications Acetaminophen (Tylenol -) 650 mg PO Q8H PRN PRN Reason: PAIN LEVEL 1-5 Last Admin: 02/27/19 13:40 Dose: 650 mg Albuterol Sulfate (Ventolin 0.083% Nebulizer Soln -) 1 amp NEB Q4H PRN PRN Reason: SHORT OF BREATH/WHEEZING Aspirin (Asa -) 81 mg PO DAILY [facility] Last Admin: 03/02/19 09:11 Dose: 81 mg Atorvastatin Calcium (Lipitor -) 40 mg PO HS [facility] Last Admin: 03/02/19 22:18 Dose: 40 mg Benzocaine/Menthol (Cepacol Lozenge -) 1 each MM Q2H PRN PRN Reason: SORE THROAT Last Admin: 02/27/19 09:19 Dose: 1 each Cyanocobalamin (Vitamin B12 Injection -) 1,000 mcg IM DAILY [facility] Stop: 03/05/19 10:01 Last Admin: 03/02/19 09:14 Dose: 1,000 mcg Fluticasone Propionate (Flonase -) 1 spray NS BID [facility] Last Admin: 03/02/19 22:18 Dose: Not Given Folic Acid (Folic Acid -) 1 mg PO DAILY STU Last Admin: 03/02/19 09:12 Dose: 1 mg Guaifenesin (Diabetic Tussin Dm -) 10 ml PO Q6H PRN PRN Reason: COUGH Last Admin: 03/02/19 14:30 Dose: 10 ml Heparin Sodium (Porcine) (Heparin -) 3,500 unit 40 unit/kg (3500 unit) IVPUSH PRN PRN PRN Reason: For aPTT 35 to 45 seconds Heparin Sodium (Porcine) (Heparin -) 7,000 unit 80 unit/kg (7000 unit) IVPUSH PRN PRN PRN Reason: aPTT <35 seconds Hydrocortisone Sodium Succinate (Solu-Cortef -) 100 mg IVPUSH Q8H-IV STU Vasopressin 50 units/ Sodium (Chloride) 100 mls @ 4 mls/hr IVPB ASDIR [facility]; Protocol Last Titration: 03/03/19 05:15 Dose: 6 units/hr, 12 mls/hr Norepinephrine Bitartrate 8, (000 mcg/ Dextrose) 500 mls @ 18.75 mls/hr IV TITR [facility]; Protocol Last Titration: 03/03/19 09:40 Dose: 12 mcg/min, 45 mls/hr Heparin Sodium/Dextrose (Heparin Infusion -) 25,000 units in 500 mls @ 31.515 mls/hr IVPB TITR STU; Protocol Last Admin: 03/03/19 08:39 Dose: 18 units/kg/hr, 31.515 mls/hr Midazolam HCl (Midazolam 100mg/100ml-0.9%Nacl) 100 mg in 100 mls @ 1 mls/hr IVPB TITR [facility]; Protocol Insulin Aspart (Novolog Vial Sliding Scale -) 1 vial SQ ACHS [facility]; Protocol Last Admin: 03/03/19 08:02 Dose: 2 units Loratadine (Claritin -) 10 mg PO DAILY [facility] Last Admin: 03/02/19 09:13 Dose: 10 mg Methimazole (Tapazole -) 5 mg PO BID [facility] Last Admin: 03/02/19 22:18 Dose: 5 mg Metoprolol Succinate (Toprol Xl -) 12.5 mg PO DAILY [facility] Last Admin: 03/02/19 09:12 Dose: 12.5 mg Nystatin (Nystatin) 500,000 unit PO TID [facility] Last Admin: 03/03/19 07:58 Dose: Not Given Potassium Phos/Sodium Phos (Phos-Nak Packet -) 1 packet PO DAILY STU Last Admin: 03/02/19 09:11 Dose: 1 packet Sodium Chloride ([place] -) 2 spray NS TID PRN PRN Reason: NASAL CONGESTION Thiamine HCl (Vitamin B1 Injection -) 200 mg IVPB DAILY [facility] Last Admin: 03/02/19 11:13 Dose: 200 mg ASSESSMENT AND PLAN: s/p Cardiopulmonary Arrest Shock/Multiorgan Dysfunction r/o PE Acute Kidney Injury Lactic Acidosis Elevated LFTs likely Ischemic Injury +Troponins likely [place] Ischemia SVT vs Rapid Atrial Fibrillation Acute COPD Exacerbation Acute Bronchitis/Sinusitis HTN Hyperlipidemia Nonspecific Lung Nodules - agree with empiric anticoagulation - on hypothermia protocol - amiodarone trial - check CVP, keep 8-12 - titrate pressors to maintain MAP >65 - trend cardiac enzymes - echocardiogram - will need CTA chest when renal function improves - empiric stress dose steroids - inhaled bronchodilators standing and PRN - mathis culture - broaden antibiotic coverage - sedate for vent synchrony - titrate Fio2 to keep Spo2 >90% - lighten sedation when hypothermia protocol complete to assess mental status - spontaneous breathing trials when mental status improved - outpt f/u of lung nodules - DVT/GI prophylaxis - prognosis guarded - continue ICU monitoring critical care time spent in reviewing chart, evaluating patient and formulating plan 45 min Problem List - Problems (1) COPD exacerbation Code(s): J44.1 - CHRONIC OBSTRUCTIVE PULMONARY DISEASE W (ACUTE) EXACERBATION
[2019-03-03] MEDS: MIDAZOLAM IN 0.9 % SOD.CHLORID 100 MG/100 ML PLAST..BAG IVPB SCH (10:59)
[2019-03-03] MEDS: FLUTICASONE PROP 0.05% 16 GM NASAL SPRAY NS SCH ×2 (11:00→21:40)
[2019-03-03] MEDS ORDERED: PIPERACILLIN/TAZOB 2.25 GM 2.25 GM in DEXTROSE 5%-WATER - 50 ML IVPB SCH (11:00)
[2019-03-03] MEDS: HYDROCORTISONE SOD SUCCINATE 100 MG/2 ML VIAL IVPUSH SCH ×2 (11:00→18:02)
[2019-03-03] MEDS ORDERED: VANCOMYCIN HCL 1,250 MG in DEXTROSE 5%-WATER - 250 ML IVPB ONE (11:00)
--- NOTE | 2019-03-03 11:23 | PN ---
Progress Note (short form) - Note Progress Note: ID CONSULT DICTATED S/P CARDIOPULMONARY ARREST R/O SEPSIS/ SEPTIC SHOCK CARL PROBABLE SHOCK LIVER LACTIC ACIDOSIS COPD EXACERBATION ?AMOXICILLIN ALLERGY OBTAIN CULTURES HEMODYNAMIC/ VENTILATORY SUPPORT EMPIRIC MEROPENEM + VANCOMYCIN PROGNOSIS GUARDED CRITICAL CARE TIME 40MIN
[2019-03-03] MEDS: VANCOMYCIN 1 GRAM (PRE-DOCKED) 1,000 MG/250 ML BAG IVPB SCH (11:43)
[2019-03-03] MEDS ORDERED: INSULIN (NOVOLOG) ASPART 100 UNITS/ML 10ML VIAL ONE (12:01)
[2019-03-03] MEDS: PANTOPRAZOLE SODIUM 40 MG VIAL IVPUSH SCH (12:02)
[2019-03-03] MEDS: MEROPENEM 500 MG in DEXTROSE 5%-WATER 100 ML IVPB SCH ×2 (12:24→17:24)
--- NOTE | 2019-03-03 12:28 | CONS ---
DATE OF CONSULTATION: DATE OF DICTATION: 03/03/2019 INFECTIOUS DISEASE CONSULTATION HISTORY OF PRESENT ILLNESS: The patient is a 73-year-old female evaluated for septic shock. History was obtained from the chart, as she cannot give a history. The patient was admitted to the hospital on February 25, 2019, with a 4-day history of cough productive of yellowish sputum, shortness of breath, and chest discomfort. She was admitted with a diagnosis of acute exacerbation COPD and bronchitis. CAT scan of the chest was negative for acute infiltrate. Her hospital course was complicated by agitation. On the evening of March 02, 2019, she was noted to be febrile and tachycardic. Early this morning a rapid response was called, and patient was noted to be in pulmonary arrest. She was successfully resuscitated and transferred to the intensive care unit. At the present time she is unresponsive on the ventilator, hypotensive on pressors. The patient was placed on hypothermia protocol. Patient was empirically treated with ceftriaxone and vancomycin. Presently she is unresponsive on the ventilator. PAST MEDICAL HISTORY: Positive for COPD, asthma, osteoarthritis, hypertension, hyperlipidemia, questionable allergy to AMOXICILLIN according to a previous note; however, this is not confirmed. MEDICATION: At the present time include Tylenol, adenosine, albuterol, amiodarone, aspirin, Lipitor, folic acid, heparin, Tapazole, metoprolol, norepinephrine, and vasopressin. SOCIAL HISTORY: Lives in the community. Is a former smoker, she stopped several years ago however. History of heavy tobacco use. No history of alcohol abuse or HIV risk factors. SYSTEMS REVIEW: Neurologic: No loss of consciousness, seizure activity, focal weakness. Cardiac: As per HPI. Respiratory: As per HPI. Gastrointestinal: Negative vomiting or diarrhea. Genitourinary: Negative for urinary tract infection. LABORATORY DATA: White count 27.1, hematocrit 32.5, platelets 248, BUN 28, creatinine 1.4, lactic acid 4.6, total bilirubin 0.9, alkaline phosphatase 71, AST 5550, ALT 5368, urinalysis 8 white cells. Chest x-ray negative for acute infiltrate. PHYSICAL EXAMINATION: General: On physical examination she is unresponsive on the ventilator. Vital signs: Temperature 92.9, T-max 100.2, blood pressure 92/50, pulse 87 irregular, respirations 20 per minute. HEENT: Sclerae anicteric. Cardiovascular: Heart sounds S1, S2. Lungs: Air entry bilaterally. Abdomen: Obese. Soft, nontender. Extremities: Positive for edema. IMPRESSION: 1. Status post cardiopulmonary arrest. 2. Rule out sepsis/septic shock. 3. Marked leukocytosis. 4. Acute kidney injury. 5. Elevated liver enzymes, probable shock liver. 6. Lactic acidosis. 7. Exacerbation chronic obstructive pulmonary disease. 8. Questionable AMOXICILLIN allergy. 9. Tachyarrhythmia. Obtain cultures. Empiric antibiotic coverage with meropenem and vancomycin. Continue ventilatory and hemodynamic support. Prognosis is guarded. Discussed with family at bedside. Critical care time spent 40 minutes. Thank you for the kind referral. PRATEEK BLAKE M.D. [facility]/[id number]
[2019-03-03] MEDS: CYANOCOBALAMIN (VITAMIN B-12) 1000 MCG/1 ML VIAL IM SCH (13:19)
[2019-03-03] MEDS: THIAMINE HCL 200 MG/2 ML VIAL IVPB SCH (13:22)
[2019-03-03] MEDS ORDERED: fentaNYL CITRATE 250 MCG/5 ML VIAL ONE ×2 (13:39→17:53)
[2019-03-03] MEDS: FENTANYL INJECTION 500 MCG in DEXTROSE 5%-WATER - 90 ML IVPB SCH ×2 (13:40→18:04)
[2019-03-03 13:44] LABS: PLATELET COUNT 272 K/MM3 (134-434)
[2019-03-03] MEDS ORDERED: AMIODARONE IN DEXTROSE,ISO-OSM 360 MG/200 ML BAG IVPB SCH (13:45)
[2019-03-03] MEDS ORDERED: FENTANYL INJECTION 500 MCG in DEXTROSE 5%-WATER - 90 ML IVPB SCH ×2 (13:45→14:03)
[2019-03-03] MEDS ORDERED: AMIODARONE IN DEXTROSE,ISO-OSM 360 MG/200 ML BAG IVPB ONE (13:45)
--- NOTE | 2019-03-03 13:52 | PN ---
Progress Note, Physician Chief Complaint: Acute Hypoxic Respiratory Failure COPD exacerbation AMS History of Present Illness: Cardiac arrest x 3+ respiratory arrest overnight -[facility] -SVT's, hypotensive on pressors Intermittent twitching noted with eye opening - Current Medication List Current Medications: Active Medications Acetaminophen (Tylenol -) 650 mg PO Q8H PRN PRN Reason: PAIN LEVEL 1-5 Last Admin: 02/27/19 13:40 Dose: 650 mg Albuterol Sulfate (Ventolin 0.083% Nebulizer Soln -) 1 amp NEB Q4H PRN PRN Reason: SHORT OF BREATH/WHEEZING Aspirin (Asa -) 81 mg PO DAILY STU Last Admin: 03/02/19 09:11 Dose: 81 mg Atorvastatin Calcium (Lipitor -) 40 mg PO HS [facility] Last Admin: 03/02/19 22:18 Dose: 40 mg Benzocaine/Menthol (Cepacol Lozenge -) 1 each MM Q2H PRN PRN Reason: SORE THROAT Last Admin: 02/27/19 09:19 Dose: 1 each Cyanocobalamin (Vitamin B12 Injection -) 1,000 mcg IM DAILY [facility] Stop: 03/05/19 10:01 Last Admin: 03/03/19 13:19 Dose: 1,000 mcg Fluticasone Propionate (Flonase -) 1 spray NS BID STU Last Admin: 03/03/19 11:00 Dose: Not Given Folic Acid (Folic Acid -) 1 mg PO DAILY [facility] Last Admin: 03/02/19 09:12 Dose: 1 mg Guaifenesin (Diabetic Tussin Dm -) 10 ml PO Q6H PRN PRN Reason: COUGH Last Admin: 03/02/19 14:30 Dose: 10 ml Heparin Sodium (Porcine) (Heparin -) 3,500 unit 40 unit/kg (3500 unit) IVPUSH PRN PRN PRN Reason: For aPTT 35 to 45 seconds Heparin Sodium (Porcine) (Heparin -) 7,000 unit 80 unit/kg (7000 unit) IVPUSH PRN PRN PRN Reason: aPTT <35 seconds Hydrocortisone Sodium Succinate (Solu-Cortef -) 100 mg IVPUSH Q8H-IV STU Last Admin: 03/03/19 11:00 Dose: 100 mg Vasopressin 50 units/ Sodium (Chloride) 100 mls @ 4 mls/hr IVPB ASDIR STU; Protocol Last Admin: 03/03/19 13:18 Dose: 3 units/hr, 6 mls/hr Norepinephrine Bitartrate 8, (000 mcg/ Dextrose) 500 mls @ 18.75 mls/hr IV TITR STU; Protocol Last Titration: 03/03/19 11:00 Dose: 15 mcg/min, 56.25 mls/hr Heparin Sodium/Dextrose (Heparin Infusion -) 25,000 units in 500 mls @ 31.515 mls/hr IVPB TITR STU; Protocol Last Admin: 03/03/19 08:39 Dose: 18 units/kg/hr, 31.515 mls/hr Midazolam HCl (Midazolam 100mg/100ml-0.9%Nacl) 100 mg in 100 mls @ 1 mls/hr IVPB TITR STU; Protocol Last Infusion: 03/03/19 13:16 Dose: 4 mg/hr, 4 mls/hr Vancomycin HCl (Vancomycin (Pre-Docked)) 1,000 mg in 250 mls @ 166.667 mls/hr IVPB Q24H STU; Protocol Last Admin: 03/03/19 11:43 Dose: Not Given Meropenem 500 mg/ Dextrose 100 mls @ 200 mls/hr IVPB Q8H-IV STU Last Admin: 03/03/19 12:24 Dose: 200 mls/hr Fentanyl 500 mcg/ Dextrose 100 mls @ 0 mls/hr IVPB TITR STU; Protocol Amiodarone HCl/Dextrose (Nexterone 360 Mg/200 Ml Bag) 360 mg in 200 mls @ 16.667 mls/hr IVPB ASDIR STU; Protocol Amiodarone HCl/Dextrose (Nexterone 360 Mg/200 Ml Bag) 360 mg in 200 mls @ 33.333 mls/hr IVPB ONCE ONE; Protocol Stop: 03/03/19 19:44 Insulin Aspart (Novolog Vial Sliding Scale -) 1 vial SQ ACHS [facility]; Protocol Last Admin: 03/03/19 12:02 Dose: 6 units Loratadine (Claritin -) 10 mg PO DAILY [facility] Last Admin: 03/02/19 09:13 Dose: 10 mg Methimazole (Tapazole -) 5 mg PO BID [facility] Last Admin: 03/02/19 22:18 Dose: 5 mg Metoprolol Succinate (Toprol Xl -) 12.5 mg PO DAILY [facility] Last Admin: 03/02/19 09:12 Dose: 12.5 mg Nystatin (Nystatin) 500,000 unit PO TID [facility] Last Admin: 03/03/19 07:58 Dose: Not Given Pantoprazole Sodium (Protonix Iv) 40 mg IVPUSH DAILY [facility] Last Admin: 03/03/19 12:02 Dose: 40 mg Potassium Phos/Sodium Phos (Phos-Nak Packet -) 1 packet PO DAILY [facility] Last Admin: 03/02/19 09:11 Dose: 1 packet Sodium Chloride ([place]al [place] -) 2 spray NS TID PRN PRN Reason: NASAL CONGESTION Thiamine HCl (Vitamin B1 Injection -) 200 mg IVPB DAILY [facility] Last Admin: 03/03/19 13:22 Dose: 200 mg - Objective Vital Signs: Vital Signs Temperature 90.8 F L 03/03/19 13:00 Pulse Rate 72 03/03/19 13:00 Respiratory Rate 24 H 03/03/19 13:00 Blood Pressure 126/57 L 03/03/19 13:00 O2 Sat by Pulse Oximetry (%) 98 03/03/19 09:00 Constitutional: Yes: Well Nourished, No Distress, Calm Cardiovascular: Yes: Tachycardia Respiratory: Yes: Mechanically Ventilated Gastrointestinal: Yes: WNL Edema: Yes Edema: LLE: 1+, RLE: 1+ Peripheral Pulses WNL: Yes Labs: CBC, BMP 03/03/19 08:19 03/03/19 08:19 Problem List - Problems (1) Bronchitis Code(s): J40 - BRONCHITIS, NOT SPECIFIED ACUTE OR CHRONIC (2) Cardiopulmonary arrest Assessment/Plan: -ICU monitoring -mechanical vent Code(s): I46.9 - CARDIAC ARREST, CAUSE UNSPECIFIED (3) Septic shock Assessment/Plan: -ID on board -IV abx -Vassopresin Code(s): A41.9 - SEPSIS, UNSPECIFIED ORGANISM; R65.21 - SEVERE SEPSIS WITH SEPTIC SHOCK (4) Toxic metabolic encephalopathy Code(s): G92 - TOXIC ENCEPHALOPATHY
--- NOTE | 2019-03-03 14:08 | CON.CARD ---
Consult Consult Specialty:: Cardiology Referred by:: ICU/Dr. Farmer Reason for Consultation:: cardiac arrest, afib with rvr - History of Present Illness Chief Complaint: cardiac arrest/afib with rvr History of Present Illness: 73 year old woman with pmh HTN, HLD, borderline DMII, COPD initially admitted for AE COPD, hypoxic respiratory failure treated with steroids and Abx, last night was found unresponsive, code 99 called and CPR administered with ROSC after several round of epi, bicarb, followed by 1 cardioversion, hypothermia protocol initiated. This am pt noted to be in Afib with RVR and amiodarone was started followed by conversion to NSR. She is on heparin gtt for empiric treatment of possible PE. She is currently intubated, sedated, unresponsive. There was no reported chest pain prior to the event. No known cardiac history. - History Source History Provided By: Medical Record Limitations to Obtaining History: Unresponsive - Past Medical History Cardio/Vascular: Yes: HTN, Hyperlipdemia Pulmonary: Yes: COPD Musculoskeletal: Yes: Osteoarthritis ENT: Yes: Allergic Rhinitis Endocrine: Yes: Diabetes Mellitus (Prediabetes) - Past Surgical History Past Surgical History: Yes: Joint Replacement (right hip replacement, left arm surgery) - Alcohol/Substance Use Hx Alcohol Use: No History of Substance Use: reports: None - Smoking History Smoking history: Former smoker (smoked over 1 ppd for over 40 years, quit 6 years ago) Have you smoked in the past 12 months: No Aproximately how many cigarettes per day: 0 If you are a former smoker, when did you quit?: 2011 - Social History Usual Living Arrangement: Alone ADL: Independent History of Recent Travel: No Home Medications - Allergies Allergies/Adverse Reactions: Allergies Allergy/AdvReac Type Severity Reaction Status Date / Time No Known Drug Allergies Allergy Verified 02/25/19 20:56 - Home Medications Home Medications: Ambulatory Orders Atorvastatin Ca [Lipitor] 40 mg PO HS 03/22/13 Cholecalciferol (Vitamin D3) [Vitamin D3] 1,000 unit PO DAILY 08/28/15 Cyanocobalamin [Vitamin B12 -] 1,000 mcg PO DAILY 08/28/15 Mcdonald-3 Fatty Acids [Fish Oil] 300 mg PO DAILY 08/28/15 Aspirin [ASA -] 81 mg PO DAILY 08/08/16 Metoprolol Succinate [Toprol XL -] 12.5 mg PO DAILY 08/08/16 Family Disease History - Family Disease History Family Disease History: Other: Father (htn), Mother (htn) Review of Systems - Review of Systems Constitutional: denies: No Symptoms, Chills, Diaphoresis, Fever, Lethargy, Loss of Appetite, Malaise, Night Sweats, Unintentional Wgt. Loss, Weakness, Other Eyes: denies: No Symptoms, Blind Spots, Blurred Vision, Double Vision, Eye Pain , Floaters, Photophobia, Recent Change in Vision, Other HENT: denies: No Symptoms, Difficult Swallowing, Ear Discharge, Ear Pain, Epistaxis, Gingival Bleeding, Hearing Loss, Mouth Swelling, Nasal Congestion, Ocular Prosthesis, Throat Pain, Toothache, Ringing in Ears, Other Neck: denies: No Symptoms, Decreased ROM, Lumps, Pain on Movement, Stiffness, Swollen Glands, Tenderness, Other Cardiovascular: reports: Shortness of Breath. denies: No Symptoms, Chest Pain, Edema, Palpitations, Other Respiratory: reports: SOB, SOB on Exertion. denies: No Symptoms, Cough, Exercise Intolerance, Hemoptysis, Orthopnea, PND, Snoring, Wheezing, Other Gastrointestinal: denies: No Symptoms, Abdominal Pain, Bloating, Constipation, Diarrhea, Dysphagia, Indigestion, Melena, Nausea, Rectal Bleeding, Vomiting, Vomiting Blood, Other Genitourinary: denies: No Symptoms, Burning, Discharge, Dysuria, Flank Pain, Frequency, Hematuria, Incontinence, Lesions, Menses, Pain, Testicular Mass, Testicular Pain, Testicular Swelling, Urgency, Vaginal Bleeding, Other Breasts: denies: No Symptoms Reported, See HPI, Breast Implants, Discharge from Nipple, Lumps, Pain, Skin Changes, Other Musculoskeletal: denies: No Symptoms, Back Pain, Crepitus, Decreased ROM, Extremity Pain, Joint Pain, Joint Swelling, Muscle Pain, Muscle Cramps, Muscle Weakness, Other Integumentary: denies: No Symptoms, Blister, Bruising, Change in Color, Eczema, Erythema, Incision, Lesions, Lump, Pallor, Pruritis, Rash, Wound, Other Neurological: denies: No Symptoms, Change in LOC, Change in Speech, Confusion, Dizziness, Headache, Incoordination, Numbness, Parasthesia, Pre-Existing Deficit , Seizure, Syncope, Tremors, Unsteady Gait, Weakness, Other Endocrine: denies: No Symptoms, Excessive Sweating, Flushing, Increased Hunger, Increased Thirst, Intolerance to Cold, Intolerance to Heat, Unexplained Weight Gain, Unexplained Weight Loss, Other Hematology/Lymphatic: denies: No Symptoms, Easily Bruised, Excessive Bleeding, Swollen Glands, Other Psychiatric: denies: No Symptoms, Altered Sleep Pattern, Anxiety, Depression, Hallucinations, Panic, Paranoia, Suicidal, Other - Risk Factors Known Risk Factors: Yes: Diabetes Mellitus, Hypercholesterolemia, Hypertension Vital Signs: Vital Signs Temperature 92.1 F L 03/03/19 13:53 Pulse Rate 68 03/03/19 13:53 Respiratory Rate 24 H 03/03/19 13:53 Blood Pressure 116/43 L 03/03/19 13:53 O2 Sat by Pulse Oximetry (%) 98 03/03/19 09:00 Constitutional: Yes: No Distress, Calm HENT: Yes: Atraumatic, Normocephalic Respiratory: Yes: Regular, Intubated, Mechanically Ventilated. No: Rales, Rhonchi, SOB, Wheezes Gastrointestinal: Yes: Normal Bowel Sounds, Soft Cardiovascular: Yes: Regular Rate and Rhythm. No: Bradycardia, Tachycardia, Pulse Irregular, Gallop, Rub, Varicosities JVD: No Carotid Bruit: No PMI: Non-Displaced Heart Sounds: Yes: S1, S2. No: Split S2, S3, S4, Clicks, Gallop, Rub, Bruit Murmur: No: Systolic Murmur, Diastolic Murmur Edema: No Peripheral Pulses WNL: Yes Neurological: Yes: Unresponsive. No: Alert, Oriented Psychiatric: No: Alert, Oriented - Other Data Labs, Other Data: CBC, BMP 03/03/19 08:19 03/03/19 08:19 Troponin, BNP 03/03/19 03/03/19 05:30 08:19 Troponin I 0.17 H 0.83 H* Troponin, BNP 03/03/19 03/03/19 05:30 08:19 Troponin I 0.17 H 0.83 H* EKG-AFib with RVR--NSR, no sig ST abnl Imaging - Results Chest X-ray: Report Reviewed, Image Reviewed EKG: Report Reviewed, Image Reviewed Other: Report Reviewed, Image Reviewed (tele-Afib with RVR-->NSR) Assessment/Plan 73 year old woman with pmh HTN, HLD, borderline DMII, COPD initially admitted for AE COPD, hypoxic respiratory failure treated with steroids and Abx, last night was found unresponsive, code 99 called and CPR administered with ROSC after several round of epi, bicarb, followed by 1 cardioversion, hypothermia protocol initiated. This am pt noted to be in Afib with RVR and amiodarone was started followed by conversion to NSR. She is on heparin gtt for empiric treatment of possible PE. She is currently intubated, sedated, unresponsive. There was no reported chest pain prior to the event. No known cardiac history. Cardiac arrest-PEA arrrest with 1 shock given after CPR/epi given initially. details not currently available in regards to VT -uncertain etiology, pulmonary embolism vs IL vs respiratory failure -EKG not c/w STEMI -troponin mildly elevated (no ck level done yet), could be secondary to CPR, demand ischemia, or NSTEMI -cont care as per ICU, hypothermia protocol -cont to trend cardiac enzymes and include CK/CKMB -check echo -cont heparin gtt -cont ASA 81mg daily and statin -no indication for urgent cardiac catheterization at this time Pafib with RVR -back in NSR after amiodarone -after cardiac arrest and ROSC -could be secondary to PE if present -cont amiodarone gtt -start Bblocker when off pressors if BP tolerates -on heparin gtt for above reasons -monitor tele Will follow
[2019-03-03] MEDS: NAPH,MB-DB/K PH,MBDB POWDER PACKET PO SCH (16:03)
[2019-03-03] MEDS: FOLIC ACID 1 MG TABLET (FP) PO SCH (16:03)
[2019-03-03] MEDS: LORATADINE 10 MG TABLET PO SCH (16:03)
[2019-03-03] MEDS: ASPIRIN 81 MG CHEWABLE TABLETS PO SCH (16:03)
[2019-03-03] MEDS: METHIMAZOLE 5 MG TABLET (FP) PO SCH ×2 (16:03→21:41)
--- NOTE | 2019-03-03 19:43 | PN ---
Progress Note, Physician Chief Complaint: intubated /daughter at bedside History of Present Illness: sp respiratory failure,intubated,sedated possible mi vs pe,iv pressors,iv fluids ,critical state - Current Medication List Current Medications: Active Medications Acetaminophen (Tylenol -) 650 mg PO Q8H PRN PRN Reason: PAIN LEVEL 1-5 Last Admin: 02/27/19 13:40 Dose: 650 mg Albuterol Sulfate (Ventolin 0.083% Nebulizer Soln -) 1 amp NEB Q4H PRN PRN Reason: SHORT OF BREATH/WHEEZING Aspirin (Asa -) 81 mg PO DAILY STU Last Admin: 03/03/19 16:03 Dose: Not Given Atorvastatin Calcium (Lipitor -) 40 mg PO HS STU Last Admin: 03/02/19 22:18 Dose: 40 mg Benzocaine/Menthol (Cepacol Lozenge -) 1 each MM Q2H PRN PRN Reason: SORE THROAT Last Admin: 02/27/19 09:19 Dose: 1 each Cyanocobalamin (Vitamin B12 Injection -) 1,000 mcg IM DAILY STU Stop: 03/05/19 10:01 Last Admin: 03/03/19 13:19 Dose: 1,000 mcg Fluticasone Propionate (Flonase -) 1 spray NS BID STU Last Admin: 03/03/19 11:00 Dose: Not Given Folic Acid (Folic Acid -) 1 mg PO DAILY STU Last Admin: 03/03/19 16:03 Dose: Not Given Guaifenesin (Diabetic Tussin Dm -) 10 ml PO Q6H PRN PRN Reason: COUGH Last Admin: 03/02/19 14:30 Dose: 10 ml Heparin Sodium (Porcine) (Heparin -) 3,500 unit 40 unit/kg (3500 unit) IVPUSH PRN PRN PRN Reason: For aPTT 35 to 45 seconds Heparin Sodium (Porcine) (Heparin -) 7,000 unit 80 unit/kg (7000 unit) IVPUSH PRN PRN PRN Reason: aPTT <35 seconds Hydrocortisone Sodium Succinate (Solu-Cortef -) 100 mg IVPUSH Q8H-IV STU Last Admin: 03/03/19 18:02 Dose: 100 mg Vasopressin 50 units/ Sodium (Chloride) 100 mls @ 4 mls/hr IVPB ASDIR STU; Protocol Last Titration: 03/03/19 18:15 Dose: 3 units/hr, 6 mls/hr Norepinephrine Bitartrate 8, (000 mcg/ Dextrose) 500 mls @ 18.75 mls/hr IV TITR STU; Protocol Last Titration: 03/03/19 18:13 Dose: 5 mcg/min, 18.75 mls/hr Heparin Sodium/Dextrose (Heparin Infusion -) 25,000 units in 500 mls @ 31.515 mls/hr IVPB TITR STU; Protocol Last Titration: 03/03/19 18:44 Dose: 15 units/kg/hr, 26.263 mls/hr Midazolam HCl (Midazolam 100mg/100ml-0.9%Nacl) 100 mg in 100 mls @ 1 mls/hr IVPB TITR STU; Protocol Last Infusion: 03/03/19 15:00 Dose: 6 mg/hr, 6 mls/hr Vancomycin HCl (Vancomycin (Pre-Docked)) 1,000 mg in 250 mls @ 166.667 mls/hr IVPB Q24H STU; Protocol Last Admin: 03/03/19 11:43 Dose: Not Given Meropenem 500 mg/ Dextrose 100 mls @ 200 mls/hr IVPB Q8H-IV STU Last Admin: 03/03/19 17:24 Dose: 200 mls/hr Amiodarone HCl/Dextrose (Nexterone 360 Mg/200 Ml Bag) 360 mg in 200 mls @ 16.667 mls/hr IVPB ASDIR STU; Protocol Last Admin: 03/03/19 16:02 Dose: 16.667 mls/hr Fentanyl 500 mcg/ Dextrose 100 mls @ 10 mls/hr IVPB TITR STU; Protocol Last Admin: 03/03/19 18:04 Dose: 50 mcg/hr, 10 mls/hr Insulin Aspart (Novolog Vial Sliding Scale -) 1 vial SQ Q4HPO STU; Protocol Last Admin: 03/03/19 17:35 Dose: Not Given Loratadine (Claritin -) 10 mg PO DAILY [facility] Last Admin: 03/03/19 16:03 Dose: Not Given Methimazole (Tapazole -) 5 mg PO BID [facility] Last Admin: 03/03/19 16:03 Dose: Not Given Metoprolol Succinate (Toprol Xl -) 12.5 mg PO DAILY [facility] Last Admin: 03/02/19 09:12 Dose: 12.5 mg Nystatin (Nystatin) 500,000 unit PO TID [facility] Last Admin: 03/03/19 15:42 Dose: Not Given Pantoprazole Sodium (Protonix Iv) 40 mg IVPUSH DAILY [facility] Last Admin: 03/03/19 12:02 Dose: 40 mg Potassium Phos/Sodium Phos (Phos-Nak Packet -) 1 packet PO DAILY [facility] Last Admin: 03/03/19 16:03 Dose: Not Given Sodium Chloride ([place] -) 2 spray NS TID PRN PRN Reason: NASAL CONGESTION Thiamine HCl (Vitamin B1 Injection -) 200 mg IVPB DAILY [facility] Last Admin: 03/03/19 13:22 Dose: 200 mg - Objective Vital Signs: Vital Signs Temperature 92.8 F L 03/03/19 18:48 Pulse Rate 59 L 03/03/19 18:48 Respiratory Rate 24 H 03/03/19 19:30 Blood Pressure 123/75 03/03/19 18:48 O2 Sat by Pulse Oximetry (%) 96 03/03/19 16:13 Constitutional: Yes: Other (sedated) Neck: Yes: Trachea Midline Cardiovascular: Yes: Bradycardia Gastrointestinal: Yes: Normal Bowel Sounds, Soft ...Rectal Exam: Yes: Deferred Musculoskeletal: Yes: WNL Extremities: Yes: WNL Edema: No Neurological: Yes: Unresponsive Labs: CBC, BMP 03/03/19 08:19 03/03/19 08:19 Problem List - Problems (1) Thyrotoxicosis with diffuse goiter and without thyroid storm Code(s): E05.00 - THYROTOXICOSIS W DIFFUSE GOITER W/O THYROTOXIC CRISIS (2) Altered mental status Code(s): R41.82 - ALTERED MENTAL STATUS, UNSPECIFIED (3) HLD (hyperlipidemia) Code(s): E78.5 - HYPERLIPIDEMIA, UNSPECIFIED (4) HTN (hypertension) Code(s): I10 - ESSENTIAL (PRIMARY) HYPERTENSION (5) Prediabetes Code(s): R73.03 - PREDIABETES Assessment/Plan Current Active Problems CARL (acute kidney injury) (Acute) Altered mental status (Acute) Bronchitis (Acute) COPD exacerbation (Acute) Cough (Acute) HLD (hyperlipidemia) (Acute) HTN (hypertension) (Acute) Prediabetes (Acute) Thyrotoxicosis with diffuse goiter and without thyroid storm (Acute) Toxic metabolic encephalopathy (Acute) Laboratory Results - last 24 hr 03/02/19 03/02/19 03/03/19 10:10 22:15 05:30 WBC 18.1 H RBC 3.22 L Hgb 10.6 L Hct 31.4 L MCV 97.6 H MCH 32.9 MCHC 33.7 RDW 13.0 Plt Count 445 H D 248 D MPV 7.4 L Absolute Neuts (auto) 14.4 H Neutrophils % 79.4 Neutrophils % (Manual) 67.3 Band Neutrophils % 1.0 Lymphocytes % 16.2 D Lymphocytes % (Manual) 16.8 D Monocytes % 4.1 Monocytes % (Manual) 4 Eosinophils % 0.1 D Eosinophils % (Manual) 0.0 Basophils % 0.2 Basophils % (Manual) 0.0 Myelocytes % (Man) 0 Promyelocytes % (Man) 0 Blast Cells % (Manual) 0 Nucleated RBC % 1 H Metamyelocytes 3 H D Hypochromia 0 Platelet Estimate Normal Polychromasia 2+ Poikilocytosis 1+ Anisocytosis 2+ Microcytosis 1+ Macrocytosis 0 Spherocytes 1+ Tear Drop Cells 1+ Raza Cells 1+ Schistocytes 1+ PTT (Actin FS) Puncture Site ABG pH ABG pCO2 at Pt Temp ABG pO2 at Pt Temp ABG HCO3 ABG O2 Sat (Measured) ABG O2 Content ABG Base Excess Braden Test O2 Delivery Device Oxygen Flow Rate Vent Mode Vent Rate Mechanical Rate PEEP Pressure Support Vent Sodium Potassium Chloride Carbon Dioxide Anion Gap BUN Creatinine Est GFR (CKD-EPI)AfAm Est GFR (CKD-EPI)NonAf POC Glucometer 138 Random Glucose Lactic Acid Calcium Phosphorus Magnesium Total Bilirubin AST ALT Alkaline Phosphatase Creatine Kinase Creatine Kinase Index CK-MB (CK-2) Troponin I Total Protein Albumin 03/03/19 03/03/19 03/03/19 05:30 05:30 06:40 WBC RBC Hgb Hct MCV MCH MCHC RDW Plt Count MPV Absolute Neuts (auto) Neutrophils % Neutrophils % (Manual) Band Neutrophils % Lymphocytes % Lymphocytes % (Manual) Monocytes % Monocytes % (Manual) Eosinophils % Eosinophils % (Manual) Basophils % Basophils % (Manual) Myelocytes % (Man) Promyelocytes % (Man) Blast Cells % (Manual) Nucleated RBC % Metamyelocytes Hypochromia Platelet Estimate Polychromasia Poikilocytosis Anisocytosis Microcytosis Macrocytosis Spherocytes Tear Drop Cells [place] Cells Schistocytes PTT (Actin FS) Puncture Site Right radial ABG pH 7.22 L ABG pCO2 at Pt Temp 56.2 H ABG pO2 at Pt Temp 305 H ABG HCO3 22.2 ABG O2 Sat (Measured) 99.5 H ABG O2 Content 13.8 L ABG Base Excess -5.2 L Braden Test Positive O2 Delivery Device Vent Oxygen Flow Rate 100% Vent Mode A/c Vent Rate 15 Mechanical Rate Yes PEEP 5.0 Pressure Support Vent 450 Sodium 139 Potassium 4.6 Chloride 99 Carbon Dioxide 24 Anion Gap 16 BUN 28.7 H Creatinine 1.6 H Est GFR (CKD-EPI)AfAm 36.67 Est GFR (CKD-EPI)NonAf 31.64 POC Glucometer Random Glucose 180 H Lactic Acid 9.4 H* Calcium 7.8 L Phosphorus Magnesium Total Bilirubin 0.8 AST 4073 H ALT 3965 H Alkaline Phosphatase 66 Creatine Kinase Creatine Kinase Index CK-MB (CK-2) Troponin I 0.17 H Total Protein 4.9 L Albumin 2.4 L 03/03/19 03/03/19 03/03/19 08:19 08:19 08:19 WBC 27.1 H RBC 3.39 L Hgb 10.8 Hct 32.5 MCV 95.9 MCH 32.0 MCHC 33.3 RDW 12.9 Plt Count 272 MPV 7.1 L Absolute Neuts (auto) Neutrophils % Neutrophils % (Manual) Band Neutrophils % Lymphocytes % Lymphocytes % (Manual) Monocytes % Monocytes % (Manual) Eosinophils % Eosinophils % (Manual) Basophils % Basophils % (Manual) Myelocytes % (Man) Promyelocytes % (Man) Blast Cells % (Manual) Nucleated RBC % Metamyelocytes Hypochromia Platelet Estimate Polychromasia Poikilocytosis Anisocytosis Microcytosis Macrocytosis Spherocytes Tear Drop Cells Raza Cells Schistocytes PTT (Actin FS) Puncture Site ABG pH ABG pCO2 at Pt Temp ABG pO2 at Pt Temp ABG HCO3 ABG O2 Sat (Measured) ABG O2 Content ABG Base Excess Braden Test O2 Delivery Device Oxygen Flow Rate Vent Mode Vent Rate Mechanical Rate PEEP Pressure Support Vent Sodium 139 Potassium 4.2 Chloride 102 Carbon Dioxide 27 Anion Gap 11 BUN 28.6 H Creatinine 1.4 H Est GFR (CKD-EPI)AfAm 43.09 Est GFR (CKD-EPI)NonAf 37.18 POC Glucometer Random Glucose 207 H Lactic Acid 4.6 H* Calcium 7.3 L Phosphorus 7.0 H Magnesium 2.2 Total Bilirubin 0.9 AST 5550 H ALT 5368 H Alkaline Phosphatase 71 Creatine Kinase Creatine Kinase Index CK-MB (CK-2) Troponin I 0.83 H* Total Protein 4.9 L Albumin 2.4 L 03/03/19 03/03/19 03/03/19 08:50 11:58 14:45 WBC RBC Hgb Hct MCV MCH MCHC RDW Plt Count MPV Absolute Neuts (auto) Neutrophils % Neutrophils % (Manual) Band Neutrophils % Lymphocytes % Lymphocytes % (Manual) Monocytes % Monocytes % (Manual) Eosinophils % Eosinophils % (Manual) Basophils % Basophils % (Manual) Myelocytes % (Man) Promyelocytes % (Man) Blast Cells % (Manual) Nucleated RBC % Metamyelocytes Hypochromia Platelet Estimate Polychromasia Poikilocytosis Anisocytosis Microcytosis Macrocytosis Spherocytes Tear Drop Cells [place] Cells Schistocytes PTT (Actin FS) Puncture Site Right radial ABG pH 7.30 L ABG pCO2 at Pt Temp 52.2 H ABG pO2 at Pt Temp 211 H ABG HCO3 25.1 ABG O2 Sat (Measured) 99.5 H ABG O2 Content 15.2 ABG Base Excess -1.2 Braden Test Positive O2 Delivery Device Vent Oxygen Flow Rate 100% Vent Mode A/c Vent Rate 15 Mechanical Rate Yes PEEP 5.0 Pressure Support Vent 450 Sodium Potassium Chloride Carbon Dioxide Anion Gap BUN Creatinine Est GFR (CKD-EPI)AfAm Est GFR (CKD-EPI)NonAf POC Glucometer 300 Random Glucose Lactic Acid Calcium Phosphorus Magnesium Total Bilirubin AST ALT Alkaline Phosphatase Creatine Kinase 1622 H Creatine Kinase Index 2.5 CK-MB (CK-2) 41.4 H Troponin I 1.78 H* Total Protein Albumin 03/03/19 03/03/19 14:45 17:29 WBC RBC Hgb Hct MCV MCH MCHC RDW Plt Count MPV Absolute Neuts (auto) Neutrophils % Neutrophils % (Manual) Band Neutrophils % Lymphocytes % Lymphocytes % (Manual) Monocytes % Monocytes % (Manual) Eosinophils % Eosinophils % (Manual) Basophils % Basophils % (Manual) Myelocytes % (Man) Promyelocytes % (Man) Blast Cells % (Manual) Nucleated RBC % Metamyelocytes Hypochromia Platelet Estimate Polychromasia Poikilocytosis Anisocytosis Microcytosis Macrocytosis Spherocytes Tear Drop Cells [place] Cells Schistocytes PTT (Actin FS) 133.7 H Puncture Site ABG pH ABG pCO2 at Pt Temp ABG pO2 at Pt Temp ABG HCO3 ABG O2 Sat (Measured) ABG O2 Content ABG Base Excess Braden Test O2 Delivery Device Oxygen Flow Rate Vent Mode Vent Rate Mechanical Rate PEEP Pressure Support Vent Sodium Potassium Chloride Carbon Dioxide Anion Gap BUN Creatinine Est GFR (CKD-EPI)AfAm Est GFR (CKD-EPI)NonAf POC Glucometer 482 Random Glucose Lactic Acid Calcium Phosphorus Magnesium Total Bilirubin AST ALT Alkaline Phosphatase Creatine Kinase Creatine Kinase Index CK-MB (CK-2) Troponin I Total Protein Albumin Abnormal Lab Results 03/02/19 03/03/19 03/03/19 10:10 05:30 05:30 WBC 18.1 H RBC 3.22 L Hgb 10.6 L Hct 31.4 L MCV 97.6 H Plt Count 445 H D MPV 7.4 L Absolute Neuts (auto) 14.4 H Nucleated RBC % 1 H Metamyelocytes 3 H D PTT (Actin FS) ABG pH ABG pCO2 at Pt Temp ABG pO2 at Pt Temp ABG O2 Sat (Measured) ABG O2 Content ABG Base Excess BUN 28.7 H Creatinine 1.6 H Random Glucose 180 H Lactic Acid Calcium 7.8 L Phosphorus AST 4073 H ALT 3965 H Creatine Kinase CK-MB (CK-2) Troponin I 0.17 H Total Protein 4.9 L Albumin 2.4 L 03/03/19 03/03/19 03/03/19 05:30 06:40 08:19 WBC 27.1 H RBC 3.39 L Hgb Hct MCV Plt Count MPV 7.1 L Absolute Neuts (auto) Nucleated RBC % Metamyelocytes PTT (Actin FS) ABG pH 7.22 L ABG pCO2 at Pt Temp 56.2 H ABG pO2 at Pt Temp 305 H ABG O2 Sat (Measured) 99.5 H ABG O2 Content 13.8 L ABG Base Excess -5.2 L BUN Creatinine Random Glucose Lactic Acid 9.4 H* Calcium Phosphorus AST ALT Creatine Kinase CK-MB (CK-2) Troponin I Total Protein Albumin 03/03/19 03/03/19 03/03/19 08:19 08:19 08:50 WBC RBC Hgb Hct MCV Plt Count MPV Absolute Neuts (auto) Nucleated RBC % Metamyelocytes PTT (Actin FS) ABG pH 7.30 L ABG pCO2 at Pt Temp 52.2 H ABG pO2 at Pt Temp 211 H ABG O2 Sat (Measured) 99.5 H ABG O2 Content ABG Base Excess BUN 28.6 H Creatinine 1.4 H Random Glucose 207 H Lactic Acid 4.6 H* Calcium 7.3 L Phosphorus 7.0 H AST 5550 H ALT 5368 H Creatine Kinase CK-MB (CK-2) Troponin I 0.83 H* Total Protein 4.9 L Albumin 2.4 L 03/03/19 03/03/19 14:45 14:45 WBC RBC Hgb Hct MCV Plt Count MPV Absolute Neuts (auto) Nucleated RBC % Metamyelocytes PTT (Actin FS) 133.7 H ABG pH ABG pCO2 at Pt Temp ABG pO2 at Pt Temp ABG O2 Sat (Measured) ABG O2 Content ABG Base Excess BUN Creatinine Random Glucose Lactic Acid Calcium Phosphorus AST ALT Creatine Kinase 1622 H CK-MB (CK-2) 41.4 H Troponin I 1.78 H* Total Protein Albumin plan; tapazole 5mg bid repeat tsh free t4
[2019-03-03] MEDS: ATORVASTATIN CA 40 MG TABLET (FP) PO SCH (21:40)
[2019-03-03] MEDS ORDERED: PT OWN MED DRAWER 7, Y5N ONE (21:44)
[2019-03-04] MEDS: MEROPENEM 500 MG in DEXTROSE 5%-WATER 100 ML IVPB SCH ×3 (01:11→20:46)
[2019-03-04] MEDS: HYDROCORTISONE SOD SUCCINATE 100 MG/2 ML VIAL IVPUSH SCH ×3 (01:12→18:33)
[2019-03-04] MEDS: INSULIN SLIDING SCALE (NOVOLOG) 1 VIAL SQ SCH ×6 (01:16→22:21)
[2019-03-04] MEDS ORDERED: INSULIN (NOVOLOG) ASPART 100 UNITS/ML 10ML VIAL SQ ONE (01:39)
--- NOTE | 2019-03-04 02:57 | PN ---
Progress Note (short form) - Note Progress Note: Informed of aPTT >400. Will stop Heparin gtt by 2 hours and then decrease by -3U /kg/hr given cooling protocol and shock liver will impeded coagulation cascade. No signs of bleeding at this time. If any bleed will immediately start Protamine sulfate reversal with FFP doses. --Hiro Moreira, DO - IM PGY-2
[2019-03-04] MEDS ORDERED: fentaNYL CITRATE 250 MCG/5 ML VIAL ONE (03:06)
[2019-03-04] MEDS: MIDAZOLAM IN 0.9 % SOD.CHLORID 100 MG/100 ML PLAST..BAG IVPB SCH ×2 (03:09→17:22)
[2019-03-04] MEDS: FENTANYL INJECTION 500 MCG in DEXTROSE 5%-WATER - 90 ML IVPB SCH ×2 (03:10→17:28)
[2019-03-04] MEDS: VASOPRESSIN 50 UNITS in SODIUM CHLORIDE 97.5 ML IVPB SCH (05:33)
[2019-03-04 05:52] LABS: ARTERIAL BLD GAS O2 SATURATION 98.7 % (95-98); ARTERIAL BLOOD GAS BASE EXCESS 1.2 meq/l (-2-2); ARTERIAL BLOOD GAS PCO2 34.4 mmHg (35-45); ARTERIAL BLOOD GAS PO2 119 mmHg (80-105); ARTERIAL BLOOD GAS pH 7.46 (7.35-7.45)
[2019-03-04 05:53] LABS: ALLENS TEST POSITIVE
[2019-03-04 06:09] LABS: HEMATOCRIT 29.2 % (32.4-45.2); HEMOGLOBIN 10.1 GM/dL (10.7-15.3); MCH 32.4 pg (25.7-33.7); MCHC 34.5 g/dl (32.0-36.0); MEAN CELL VOLUME 93.8 fl (80-96); MEAN PLT VOLUME 7.6 fl (7.5-11.1); PLATELET COUNT 202 K/MM3 (134-434); RBC 3.11 M/mm3 (3.60-5.2); RDW 12.9 % (11.6-15.6); WHITE BLOOD COUNT 25.1 K/mm3 (4.0-10.0)
[2019-03-04 06:43] LABS: ALBUMIN 2.1 g/dl (3.4-5.0); BILIRUBIN,TOTAL 0.6 mg/dL (0.2-1); BLOOD UREA NITROGEN 36.7 mg/dL (7-18); CREATININE 1.7 mg/dL (0.55-1.3); MAGNESIUM 2.1 mg/dL (1.8-2.4); TOT PROT 4.4 g/dl (6.4-8.2)
--- NOTE | 2019-03-04 07:01 | PN ---
Physical Exam: SUBJECTIVE: Patient seen and examined at bedside this morning. She remains sedated on Fentanyl and Midazolam, and currently on Norepinepherine. Vasopressin has been titrated off. Hypothermia protocol was initiated yesterday morning. Patient in sinus rhythm overnight. OBJECTIVE: Vital Signs Period Temp Pulse Resp BP Sys/Gonzalez Pulse Ox Last 24 Hr 90.8 F-97.1 F 54-159 16-27 74-156/43-94 96-100 GENERAL: The patient is intubated, sedated. HEENT: Normocephalic. Pupils 1mm. Sclera anicteric. Dry mucous membranes. Right sided internal jugular central venous catheter. NECK: Supple, without lymphadenopathy LUNGS: Mechanical breath sounds, equal air entry bilaterally. Faint rhonchi auscultated bilaterally. HEART: S1, S2 auscultated without murmur, rub or gallop. RRR ABDOMEN: Obese abdomen. Soft, mildly distended. Hypoactive bowel sounds x4 quadrants. Hepatomegaly palpated and percussed 2cm below costal margin. EXTREMITIES: 1+ radial, dorsalis pedis pulses bilaterally. Cool extremities. Trace pitting edema bilateral lower extremities. NEUROLOGICAL: Patient is sedated. Unresponsive to sternal rub. SKIN: Cool, dry. Eccchymosis noted along abdomen. Laboratory Results - last 24 hr 03/03/19 03/03/19 03/03/19 05:30 08:19 08:19 WBC 27.1 H RBC 3.39 L Hgb 10.8 Hct 32.5 MCV 95.9 MCH 32.0 MCHC 33.3 RDW 12.9 Plt Count 272 MPV 7.1 L Neutrophils % (Manual) 67.3 Band Neutrophils % 1.0 Lymphocytes % (Manual) 16.8 D Monocytes % (Manual) 4 Eosinophils % (Manual) 0.0 Basophils % (Manual) 0.0 Myelocytes % (Man) 0 Promyelocytes % (Man) 0 Blast Cells % (Manual) 0 Metamyelocytes 3 H D Hypochromia 0 Platelet Estimate Normal Polychromasia 2+ Poikilocytosis 1+ Anisocytosis 2+ Microcytosis 1+ Macrocytosis 0 Spherocytes 1+ Tear Drop Cells 1+ Raza Cells 1+ Schistocytes 1+ PTT (Actin FS) Puncture Site ABG pH ABG pCO2 at Pt Temp ABG pO2 at Pt Temp ABG HCO3 ABG O2 Sat (Measured) ABG O2 Content ABG Base Excess Braden Test O2 Delivery Device Oxygen Flow Rate Vent Mode Vent Rate Mechanical Rate PEEP Pressure Support Vent Sodium 139 Potassium 4.2 Chloride 102 Carbon Dioxide 27 Anion Gap 11 BUN 28.6 H Creatinine 1.4 H Est GFR (CKD-EPI)AfAm 43.09 Est GFR (CKD-EPI)NonAf 37.18 POC Glucometer Random Glucose 207 H Lactic Acid Calcium 7.3 L Phosphorus 7.0 H Magnesium 2.2 Total Bilirubin 0.9 AST 5550 H ALT 5368 H Alkaline Phosphatase 71 Creatine Kinase Creatine Kinase Index CK-MB (CK-2) Troponin I 0.83 H* Total Protein 4.9 L Albumin 2.4 L TSH Free T4 Random Vancomycin 03/03/19 03/03/19 03/03/19 08:19 08:50 11:58 WBC RBC Hgb Hct MCV MCH MCHC RDW Plt Count MPV Neutrophils % (Manual) Band Neutrophils % Lymphocytes % (Manual) Monocytes % (Manual) Eosinophils % (Manual) Basophils % (Manual) Myelocytes % (Man) Promyelocytes % (Man) Blast Cells % (Manual) Metamyelocytes Hypochromia Platelet Estimate Polychromasia Poikilocytosis Anisocytosis Microcytosis Macrocytosis Spherocytes Tear Drop Cells [place] Cells Schistocytes PTT (Actin FS) Puncture Site Right radial ABG pH 7.30 L ABG pCO2 at Pt Temp 52.2 H ABG pO2 at Pt Temp 211 H ABG HCO3 25.1 ABG O2 Sat (Measured) 99.5 H ABG O2 Content 15.2 ABG Base Excess -1.2 Braden Test Positive O2 Delivery Device Vent Oxygen Flow Rate 100% Vent Mode A/c Vent Rate 15 Mechanical Rate Yes PEEP 5.0 Pressure Support Vent 450 Sodium Potassium Chloride Carbon Dioxide Anion Gap BUN Creatinine Est GFR (CKD-EPI)AfAm Est GFR (CKD-EPI)NonAf POC Glucometer 300 Random Glucose Lactic Acid 4.6 H* Calcium Phosphorus Magnesium Total Bilirubin AST ALT Alkaline Phosphatase Creatine Kinase Creatine Kinase Index CK-MB (CK-2) Troponin I Total Protein Albumin TSH Free T4 Random Vancomycin 03/03/19 03/03/19 03/03/19 14:45 14:45 17:29 WBC RBC Hgb Hct MCV MCH MCHC RDW Plt Count MPV Neutrophils % (Manual) Band Neutrophils % Lymphocytes % (Manual) Monocytes % (Manual) Eosinophils % (Manual) Basophils % (Manual) Myelocytes % (Man) Promyelocytes % (Man) Blast Cells % (Manual) Metamyelocytes Hypochromia Platelet Estimate Polychromasia Poikilocytosis Anisocytosis Microcytosis Macrocytosis Spherocytes Tear Drop Cells Raza Cells Schistocytes PTT (Actin FS) 133.7 H Puncture Site ABG pH ABG pCO2 at Pt Temp ABG pO2 at Pt Temp ABG HCO3 ABG O2 Sat (Measured) ABG O2 Content ABG Base Excess Braden Test O2 Delivery Device Oxygen Flow Rate Vent Mode Vent Rate Mechanical Rate PEEP Pressure Support Vent Sodium Potassium Chloride Carbon Dioxide Anion Gap BUN Creatinine Est GFR (CKD-EPI)AfAm Est GFR (CKD-EPI)NonAf POC Glucometer 482 Random Glucose Lactic Acid Calcium Phosphorus Magnesium Total Bilirubin AST ALT Alkaline Phosphatase Creatine Kinase 1622 H Creatine Kinase Index 2.5 CK-MB (CK-2) 41.4 H Troponin I 1.78 H* Total Protein Albumin TSH Free T4 Random Vancomycin 03/03/19 03/03/19 03/04/19 20:30 21:46 00:00 WBC RBC Hgb Hct MCV MCH MCHC RDW Plt Count MPV Neutrophils % (Manual) Band Neutrophils % Lymphocytes % (Manual) Monocytes % (Manual) Eosinophils % (Manual) Basophils % (Manual) Myelocytes % (Man) Promyelocytes % (Man) Blast Cells % (Manual) Metamyelocytes Hypochromia Platelet Estimate Polychromasia Poikilocytosis Anisocytosis Microcytosis Macrocytosis Spherocytes Tear Drop Cells Raza Cells Schistocytes PTT (Actin FS) > 400.0 H Puncture Site ABG pH ABG pCO2 at Pt Temp ABG pO2 at Pt Temp ABG HCO3 ABG O2 Sat (Measured) ABG O2 Content ABG Base Excess Braden Test O2 Delivery Device Oxygen Flow Rate Vent Mode Vent Rate Mechanical Rate PEEP Pressure Support Vent Sodium Potassium Chloride Carbon Dioxide Anion Gap BUN Creatinine Est GFR (CKD-EPI)AfAm Est GFR (CKD-EPI)NonAf POC Glucometer 413 Random Glucose Lactic Acid Calcium Phosphorus Magnesium Total Bilirubin AST ALT Alkaline Phosphatase Creatine Kinase 1662 H Creatine Kinase Index 2.6 CK-MB (CK-2) 44.6 H Troponin I 1.54 H* Total Protein Albumin TSH Free T4 Random Vancomycin 03/04/19 03/04/19 03/04/19 01:15 05:10 05:10 WBC RBC Hgb Hct MCV MCH MCHC RDW Plt Count MPV Neutrophils % (Manual) Band Neutrophils % Lymphocytes % (Manual) Monocytes % (Manual) Eosinophils % (Manual) Basophils % (Manual) Myelocytes % (Man) Promyelocytes % (Man) Blast Cells % (Manual) Metamyelocytes Hypochromia Platelet Estimate Polychromasia Poikilocytosis Anisocytosis Microcytosis Macrocytosis Spherocytes Tear Drop Cells [place] Cells Schistocytes PTT (Actin FS) Puncture Site ABG pH ABG pCO2 at Pt Temp ABG pO2 at Pt Temp ABG HCO3 ABG O2 Sat (Measured) ABG O2 Content ABG Base Excess Braden Test O2 Delivery Device Oxygen Flow Rate Vent Mode Vent Rate Mechanical Rate PEEP Pressure Support Vent Sodium 136 Potassium Chloride 99 Carbon Dioxide 26 Anion Gap 11 BUN 36.7 H Creatinine 1.7 H Est GFR (CKD-EPI)AfAm 34.08 Est GFR (CKD-EPI)NonAf 29.40 POC Glucometer 423 Random Glucose 266 H Lactic Acid Calcium 7.0 L Phosphorus 4.0 Magnesium 2.1 Total Bilirubin 0.6 AST 4816 H ALT 4221 H Alkaline Phosphatase 61 Creatine Kinase Creatine Kinase Index CK-MB (CK-2) Troponin I Total Protein 4.4 L Albumin 2.1 L TSH 0.02 L Free T4 1.77 H Random Vancomycin 15.5 L 03/04/19 03/04/19 03/04/19 05:10 05:13 05:40 WBC RBC Hgb Hct MCV MCH MCHC RDW Plt Count MPV Neutrophils % (Manual) Band Neutrophils % Lymphocytes % (Manual) Monocytes % (Manual) Eosinophils % (Manual) Basophils % (Manual) Myelocytes % (Man) Promyelocytes % (Man) Blast Cells % (Manual) Metamyelocytes Hypochromia Platelet Estimate Polychromasia Poikilocytosis Anisocytosis Microcytosis Macrocytosis Spherocytes Tear Drop Cells Raza Cells Schistocytes PTT (Actin FS) Puncture Site Right radial ABG pH 7.46 H ABG pCO2 at Pt Temp 34.4 L ABG pO2 at Pt Temp 119 H ABG HCO3 24.3 ABG O2 Sat (Measured) 98.7 H ABG O2 Content 14.0 L ABG Base Excess 1.2 Braden Test Positive O2 Delivery Device Vent Oxygen Flow Rate 60% Vent Mode A/c Vent Rate 24 Mechanical Rate Yes PEEP 5.0 Pressure Support Vent 450 Sodium Potassium Chloride Carbon Dioxide Anion Gap BUN Creatinine Est GFR (CKD-EPI)AfAm Est GFR (CKD-EPI)NonAf POC Glucometer 287 Random Glucose Lactic Acid Calcium Phosphorus Magnesium Total Bilirubin AST ALT Alkaline Phosphatase Creatine Kinase 1400 H Creatine Kinase Index CK-MB (CK-2) Troponin I 0.91 H* Total Protein Albumin TSH Free T4 Random Vancomycin Active Medications Generic Name Dose Route Start Last Admin Trade Name Freq PRN Reason Stop Dose Admin Albuterol Sulfate 1 amp 02/28/19 10:27 Ventolin 0.083% Nebulizer Soln - NEB Q4H PRN SHORT OF BREATH/WHEEZING Aspirin 81 mg 02/26/19 10:00 03/03/19 16:03 Asa - PO Not Given DAILY STU Atorvastatin Calcium 40 mg 02/25/19 22:00 03/03/19 21:40 Lipitor - PO Not Given HS STU Cyanocobalamin 1,000 mcg 02/27/19 10:45 03/03/19 13:19 Vitamin B12 Injection - IM 03/05/19 10:01 1,000 mcg DAILY STU Administration Fluticasone Propionate 1 spray 02/27/19 22:00 03/03/19 21:40 Flonase - NS Not Given BID STU Folic Acid 1 mg 02/27/19 10:45 03/03/19 16:03 Folic Acid - PO Not Given DAILY STU Heparin Sodium (Porcine) 3,500 unit 03/03/19 06:48 Heparin - 40 unit/kg (3500 unit) IVPUSH PRN PRN For aPTT 35 to 45 seconds Heparin Sodium (Porcine) 7,000 unit 03/03/19 06:48 Heparin - 80 unit/kg (7000 unit) IVPUSH PRN PRN aPTT <35 seconds Hydrocortisone Sodium Succinate 100 mg 03/03/19 10:00 03/04/19 01:12 Solu-Cortef - IVPUSH 100 mg Q8H-IV STU Administration Norepinephrine Bitartrate 8, 500 mls @ 18.75 mls/hr 03/03/19 06:30 03/04/19 05:02 000 mcg/ Dextrose IV 3 mcg/min TITR STU 11.25 mls/hr Titration Protocol 5 MCG/MIN Heparin Sodium/Dextrose 25,000 units in 500 mls @ 31.515 mls/hr 03/03/19 07: 00 03/04/19 04:45 Heparin Infusion - IVPB 12 units/kg/hr TITR STU 21.01 mls/hr Titration Protocol 18 UNITS/KG/HR Midazolam HCl 100 mg in 100 mls @ 1 mls/hr 03/03/19 10:00 03/04/19 03:09 Midazolam 100mg/100ml-0.9%Nacl IVPB 6 mg/hr TITR STU 6 mls/hr Administration Protocol 1 MG/HR Vancomycin HCl 1,000 mg in 250 mls @ 166.667 mls/hr 03/03/19 11:45 03/03/19 11:43 Vancomycin (Pre-Docked) IVPB Not Given Q24H STU Protocol Meropenem 500 mg/ Dextrose 100 mls @ 200 mls/hr 03/03/19 11:45 03/04/19 01:11 IVPB 200 mls/hr Q8H-IV STU Administration Fentanyl 500 mcg/ Dextrose 100 mls @ 10 mls/hr 03/03/19 14:45 03/04/19 03:10 IVPB 50 mcg/hr TITR STU 10 mls/hr Administration Protocol 50 MCG/HR Insulin Aspart 1 vial 03/03/19 18:00 03/04/19 05:16 Novolog Vial Sliding Scale - SQ 6 units Q4HPO STU Administration Protocol Methimazole 5 mg 03/01/19 22:00 03/03/19 21:41 Tapazole - PO Not Given BID STU Metoprolol Succinate 12.5 mg 02/26/19 10:00 03/02/19 09:12 Toprol Xl - PO 12.5 mg DAILY STU Administration Pantoprazole Sodium 40 mg 03/03/19 11:15 03/03/19 12:02 Protonix Iv IVPUSH 40 mg DAILY STU Administration Potassium Phos/Sodium Phos 1 packet 03/01/19 10:00 03/03/19 16:03 Phos-Nak Packet - PO Not Given DAILY STU Sodium Chloride 2 spray 02/27/19 15:21 [place] - NS TID PRN NASAL CONGESTION Thiamine HCl 200 mg 02/27/19 10:45 03/03/19 13:22 Vitamin B1 Injection - IVPB 200 mg DAILY STU Administration ASSESSMENT/PLAN: Patient is a 73 year old female with history of COPD, hypertension, hyperlipidemia, osteoarthritis, pre-diabetes, presented with complaint of shortness of breath. Admitted to ICU after cardiac arrest. Neurologic -Patient is sedated on Versed, Fentanyl drip. Patient was unresponsive to voice , and sternal rub prior to initiation of sedation -Hold Olanzapine while patient sedated -Will stop sedation once hypothermia protocol is complete, to assess mental status. -Monitor for signs of mental status changes -Neurology consult (Dr. Jimenez) appreciated -Follow CT head noncontrast Cardiac S/P three episodes cardiac arrest Afib vs. SVT History of hypertension History of hyperlipidemia -Troponin peaked at 1.78 -Patient started on Heparin drip. Follow PTT -Hypothermia protocol -Hydrocortisone 100mg IV Q8H stress dose steroids -Patient recieved Adenosine 6mg IV, and 12mg IV push. Amiodarone 150mg IV -Amiodarone drip discontinued. -Cardiac ECHO -Cardiac monitoring -CVP monitoring -Cardiology recommendations (Dr. Lorenzo) appreciated Pulmonary -Intubated. Ventilator settings RR 20, TV 450 FiO2 40%, PEEP 5 -Chest radiograph shows no acute infiltrates -ABG this morning pH 7.46, CO2 34.4, O2 119, HCO3 24.3. Improvement of respiratory acidosis. -Maintain oxygen saturation greater than 90% -Daily CXR -CTA chest to evaluate for pulmonary embolism (once creatinine improves). Duplex US lower extremities negative for pulmonary embolism. Gastrointestinal -Currently NPO while intubated -Transamitis likely secondary to shock. AST 4816, ALT 4221 Alkaline phosphatase 61, total bilirubin 0.6 -Will trend CMP Renal -CARL likely secondary to hypoperfusion -BUN 36.7 / Cr 1.7 -Follow slade catheter output -Will trend CMP -Nephrology recommendations (Dr. Olmedo) appreciated Infectious disease -WBC increased to 27.1 s/p cardiac arrest. -Repeat blood, urine cultures -Meropenem 500mg IV Q8H -Vancomycin 1000mg IV Q24H -Random Vancomycin level tomorrow -Infectious disease recommendations (Dr. Pepe) appreciated. FEN -Fluids: Not on IV fluids -Electrolytes: Hypokalemia, repleted. Follow CMP, replete as necessary. -Nutrition: NPO while intubated. Prophylaxis -Patient is on Heparin drip -Protonix 40mg IV daily Disposition -Continue care in ICU Visit type - Emergency Visit Emergency Visit: Yes ED Registration Date: 02/25/19 Care time: The patient presented to the Emergency Department on the above date and was hospitalized for further evaluation of their emergent condition. - New Patient This patient is new to me today: No - Critical Care Critical Care patient: Yes Total Critical Care Time (in minutes): 37 Critical Care Statement: The care of this patient involved high complexity decision making to prevent further life threatening deterioration of the patient 's condition and/or to evaluate & treat vital organ system(s) failure or risk of failure. - Discharge Referral Referred to [facility] No
[2019-03-04 07:07] LABS: POTASSIUM 2.7 mmol/L (3.5-5.1)
[2019-03-04] MEDS: KCL 10 MEQ IVPB 10 MEQ/100 ML INFUS.BAG IVPB SCH ×3 (08:56→17:18)
[2019-03-04] MEDS ORDERED: POTASSIUM CHLORIDE 20 MEQ PREMIX IVPB 100 ML IVPB ONE ×2 (09:00→17:16)
[2019-03-04] MEDS ORDERED: POTASSIUM CHLORIDE ORAL LIQUID 20 MEQ/15 ML NGT SCH (10:00)
[2019-03-04] MEDS: THIAMINE HCL 200 MG/2 ML VIAL IVPB SCH (11:00)
[2019-03-04] MEDS: NOREPINEPHRINE BITARTRATE 8,000 MCG in DEXTROSE 5%-WATER - 492 ML IV SCH (11:00)
[2019-03-04] MEDS: CYANOCOBALAMIN (VITAMIN B-12) 1000 MCG/1 ML VIAL IM SCH (11:05)
--- NOTE | 2019-03-04 11:16 | PN ---
Teaching Attending Note Name of Resident: Freddy Blount ATTENDING PHYSICIAN STATEMENT I saw and evaluated the patient. I reviewed the resident's note and discussed the case with the resident. I agree with the resident's findings and plan as documented. SUBJECTIVE: Pt seen and examined in the ICU. Remains intubated, sedated on lower dose levophed gtt. Hypothermia protocol in progress. Remains in sinus rhythm. OBJECTIVE: Vital Signs Period Temp Pulse Resp BP Sys/Gonzalez Pulse Ox Last 24 Hr 90.8 F-92.8 F 54-144 20-27 103-156/43-94 95-100 Intake & Output 03/01/19 03/02/19 03/03/19 03/04/19 23:59 23:59 23:59 23:59 Intake Total 172 913 7938 760 Output Total 880 200 Balance 460 230 3493 560 Weight 89.131 kg 93.128 kg Gen: intubated, sedated Heart: RRR Lung: decreased breath sounds at the bases Abd: soft, nontender Ext: no edema CBC, BMP 03/04/19 05:10 03/04/19 05:10 Active Medications Albuterol Sulfate (Ventolin 0.083% Nebulizer Soln -) 1 amp NEB Q4H PRN PRN Reason: SHORT OF BREATH/WHEEZING Aspirin (Asa -) 81 mg PO DAILY [facility] Last Admin: 03/03/19 16:03 Dose: Not Given Atorvastatin Calcium (Lipitor -) 40 mg PO HS [facility] Last Admin: 03/03/19 21:40 Dose: Not Given Cyanocobalamin (Vitamin B12 Injection -) 1,000 mcg IM DAILY [facility] Stop: 03/05/19 10:01 Last Admin: 03/03/19 13:19 Dose: 1,000 mcg Fluticasone Propionate (Flonase -) 1 spray NS BID [facility] Last Admin: 03/03/19 21:40 Dose: Not Given Folic Acid (Folic Acid -) 1 mg PO DAILY [facility] Last Admin: 03/03/19 16:03 Dose: Not Given Heparin Sodium (Porcine) (Heparin -) 3,500 unit 40 unit/kg (3500 unit) IVPUSH PRN PRN PRN Reason: For aPTT 35 to 45 seconds Heparin Sodium (Porcine) (Heparin -) 7,000 unit 80 unit/kg (7000 unit) IVPUSH PRN PRN PRN Reason: aPTT <35 seconds Hydrocortisone Sodium Succinate (Solu-Cortef -) 100 mg IVPUSH Q8H-IV STU Last Admin: 03/04/19 01:12 Dose: 100 mg Norepinephrine Bitartrate 8, (000 mcg/ Dextrose) 500 mls @ 18.75 mls/hr IV TITR STU; Protocol Last Titration: 03/04/19 05:02 Dose: 3 mcg/min, 11.25 mls/hr Heparin Sodium/Dextrose (Heparin Infusion -) 25,000 units in 500 mls @ 31.515 mls/hr IVPB TITR STU; Protocol Last Titration: 03/04/19 04:45 Dose: 12 units/kg/hr, 21.01 mls/hr Midazolam HCl (Midazolam 100mg/100ml-0.9%Nacl) 100 mg in 100 mls @ 1 mls/hr IVPB TITR STU; Protocol Last Admin: 03/04/19 03:09 Dose: 6 mg/hr, 6 mls/hr Vancomycin HCl (Vancomycin (Pre-Docked)) 1,000 mg in 250 mls @ 166.667 mls/hr IVPB Q24H STU; Protocol Last Admin: 03/03/19 11:43 Dose: Not Given Meropenem 500 mg/ Dextrose 100 mls @ 200 mls/hr IVPB Q8H-IV STU Last Admin: 03/04/19 10:33 Dose: 200 mls/hr Fentanyl 500 mcg/ Dextrose 100 mls @ 10 mls/hr IVPB TITR STU; Protocol Last Admin: 03/04/19 03:10 Dose: 50 mcg/hr, 10 mls/hr Insulin Aspart (Novolog Vial Sliding Scale -) 1 vial SQ Q4HPO STU; Protocol Last Admin: 03/04/19 05:16 Dose: 6 units Methimazole (Tapazole -) 5 mg PO BID [facility] Last Admin: 03/03/19 21:41 Dose: Not Given Metoprolol Succinate (Toprol Xl -) 12.5 mg PO DAILY [facility] Last Admin: 03/02/19 09:12 Dose: 12.5 mg Pantoprazole Sodium (Protonix Iv) 40 mg IVPUSH DAILY [facility] Last Admin: 03/03/19 12:02 Dose: 40 mg Potassium Chloride (Potassium Chloride Oral Liquid) 40 meq NGT BID [facility] Stop: 03/04/19 22:01 Last Admin: 03/04/19 10:33 Dose: Not Given Potassium Phos/Sodium Phos (Phos-Nak Packet -) 1 packet PO DAILY [facility] Last Admin: 03/03/19 16:03 Dose: Not Given Sodium Chloride ([place] Nas[place] -) 2 spray NS TID PRN PRN Reason: NASAL CONGESTION Thiamine HCl (Vitamin B1 Injection -) 200 mg IVPB DAILY [facility] Last Admin: 03/03/19 13:22 Dose: 200 mg ASSESSMENT AND PLAN: s/p Cardiopulmonary Arrest Shock/Multiorgan Dysfunction r/o PE Acute Kidney Injury Lactic Acidosis Elevated LFTs likely Ischemic Injury +Troponins likely [place] Ischemia SVT vs Rapid Atrial Fibrillation Acute COPD Exacerbation Acute Bronchitis/Sinusitis HTN Hyperlipidemia Nonspecific Lung Nodules - continue empiric anticoagulation - complete hypothermia protocol - IVF to keep CVP 8-12 - titrate pressors to maintain MAP >65 - echocardiogram - will need CTA chest when renal function improves - empiric stress dose steroids - inhaled bronchodilators standing and PRN - continue empiric antibiotic coverage - f/u cultures - sedate for vent synchrony - titrate Fio2 to keep Spo2 >90% - lighten sedation when hypothermia protocol complete to assess mental status - spontaneous breathing trials when mental status improved - outpt f/u of lung nodules - DVT/GI prophylaxis - prognosis guarded - continue ICU monitoring critical care time spent in reviewing chart, evaluating patient and formulating plan 35 min Problem List - Problems (1) COPD exacerbation Code(s): J44.1 - CHRONIC OBSTRUCTIVE PULMONARY DISEASE W (ACUTE) EXACERBATION
--- NOTE | 2019-03-04 11:45 | EKG ---
Test Reason : Blood Pressure : / mmHG Vent. Rate : 131 BPM Atrial Rate : 131 BPM P-R Int : 118 ms QRS Dur : 134 ms QT Int : 324 ms P-R-T Axes : 069 118 013 degrees QTc Int : 478 ms SINUS TACHYCARDIA RIGHT BUNDLE BRANCH BLOCK LEFT POSTERIOR FASCICULAR BLOCK BIFASCICULAR BLOCK ABNORMAL ECG WHEN COMPARED WITH ECG OF 03-MAR-2019 05:06, SINUS RHYTHM HAS REPLACED ATRIAL FIBRILLATION VENT. RATE HAS DECREASED Confirmed by VISHNU ERWIN MD ([id number]) on 03/04/2019 11:45:04 AM Referred By: Confirmed By:VISHNU ERWIN MD
[2019-03-04 11:48] VITALS: BMI 32.1
[2019-03-04] MEDS: VANCOMYCIN 1 GRAM (PRE-DOCKED) 1,000 MG/250 ML BAG IVPB SCH (12:06)
[2019-03-04] MEDS: PANTOPRAZOLE SODIUM 40 MG VIAL IVPUSH SCH (12:33)
--- NOTE | 2019-03-04 13:04 | ECHO ---
Name: BERLIN BARCENAS Exam:Adult Echocardiogram Study Date: 03/04/2019 08:38 AM Age: 73 yrs Reason For Study: R HEART STRAIN Height: 67 in Weight: 193 lb BSA: 2.0 m2 MMode/2D Measurements & Calculations Ao root diam: 2.8 cm LVOT diam: 1.7 cm LA dimension: 2.4 cm Doppler Measurements & Calculations MV E max victoriano: 52.8 cm/sec Med Peak E' Victoriano: 4.7 cm/sec MV A max victoriano: 90.3 cm/sec Med E/e': 11.2 MV E/A: 0.58 Lat Peak E' Victoriano: 5.5 cm/sec MV dec time: 0.23 sec Lat E/e': 9.6 Procedure A complete two-dimensional transthoracic echocardiogram was performed (2D, M-mode, Doppler and color flow Doppler). Left Ventricle The left ventricle is normal in size. Left ventricular systolic function is normal. Ejection Fraction = 60- 65%. Grade I diastolic dysfunction, (abnormal relaxation pattern). Ratio E/E'= 11. No regional wall m otion abnormalities noted. Right Ventricle The right ventricle is normal size. The right ventricular systolic function is normal. Atria The left atrial size is normal. Right atrial size is normal. Mitral Valve There is mild mitral annular calcification. There is no mitral regurgitation noted. Tricuspid Valve The tricuspid valve is normal in structure and function. No tricuspid regurgitation. Aortic Valve The aortic valve is normal in structure and function. No aortic regurgitation is present. Pulmonic Valve The pulmonic valve is not well visualized. Great Vessels The aortic root is normal size. Pericardium/Pleura There is no pericardial effusion. Interpretation Summary The left ventricle is normal in size. Left ventricular systolic function is normal. No regional wall motion abnormalities noted. Ejection Fraction = 60-65%. Grade I diastolic dysfunction, (abnormal relaxation pattern). Ratio E/E'= 11 The right ventricle is normal size. The right ventricular systolic function is normal. The left atrial size is normal. Right atrial size is normal. There is mild mitral annular calcification. The aortic root is normal size. There is no pericardial effusion. Previous study is not available for comparison Alexander Duvall MD 03/04/2019 01:03 PM
--- NOTE | 2019-03-04 13:30 | PN ---
Progress Note, Physician Chief Complaint: patient seen and examined intubated sedated on fentanyl levophed and heparin drip - Current Medication List Current Medications: Active Medications Albuterol Sulfate (Ventolin 0.083% Nebulizer Soln -) 1 amp NEB Q4H PRN PRN Reason: SHORT OF BREATH/WHEEZING Aspirin (Asa -) 81 mg PO DAILY [facility] Last Admin: 03/03/19 16:03 Dose: Not Given Atorvastatin Calcium (Lipitor -) 40 mg PO HS [facility] Last Admin: 03/03/19 21:40 Dose: Not Given Cyanocobalamin (Vitamin B12 Injection -) 1,000 mcg IM DAILY [facility] Stop: 03/05/19 10:01 Last Admin: 03/03/19 13:19 Dose: 1,000 mcg Fluticasone Propionate (Flonase -) 1 spray NS BID [facility] Last Admin: 03/03/19 21:40 Dose: Not Given Folic Acid (Folic Acid -) 1 mg PO DAILY [facility] Last Admin: 03/03/19 16:03 Dose: Not Given Heparin Sodium (Porcine) (Heparin -) 3,500 unit 40 unit/kg (3500 unit) IVPUSH PRN PRN PRN Reason: For aPTT 35 to 45 seconds Heparin Sodium (Porcine) (Heparin -) 7,000 unit 80 unit/kg (7000 unit) IVPUSH PRN PRN PRN Reason: aPTT <35 seconds Hydrocortisone Sodium Succinate (Solu-Cortef -) 100 mg IVPUSH Q8H-IV [facility] Last Admin: 03/04/19 12:33 Dose: 100 mg Norepinephrine Bitartrate 8, (000 mcg/ Dextrose) 500 mls @ 18.75 mls/hr IV TITR [facility]; Protocol Last Admin: 03/04/19 11:00 Dose: 4 mcg/min, 15 mls/hr Heparin Sodium/Dextrose (Heparin Infusion -) 25,000 units in 500 mls @ 31.515 mls/hr IVPB TITR [facility]; Protocol Last Titration: 03/04/19 04:45 Dose: 12 units/kg/hr, 21.01 mls/hr Midazolam HCl (Midazolam 100mg/100ml-0.9%Nacl) 100 mg in 100 mls @ 1 mls/hr IVPB TITR [facility]; Protocol Last Admin: 03/04/19 03:09 Dose: 6 mg/hr, 6 mls/hr Vancomycin HCl (Vancomycin (Pre-Docked)) 1,000 mg in 250 mls @ 166.667 mls/hr IVPB Q24H [facility]; Protocol Last Admin: 03/04/19 12:06 Dose: 166.667 mls/hr Meropenem 500 mg/ Dextrose 100 mls @ 200 mls/hr IVPB Q8H-IV [facility] Last Admin: 03/04/19 10:33 Dose: 200 mls/hr Fentanyl 500 mcg/ Dextrose 100 mls @ 10 mls/hr IVPB TITR [facility]; Protocol Last Admin: 03/04/19 03:10 Dose: 50 mcg/hr, 10 mls/hr Insulin Aspart (Novolog Vial Sliding Scale -) 1 vial SQ Q4HPO [facility]; Protocol Last Admin: 03/04/19 05:16 Dose: 6 units Methimazole (Tapazole -) 5 mg PO BID [facility] Last Admin: 03/03/19 21:41 Dose: Not Given Metoprolol Succinate (Toprol Xl -) 12.5 mg PO DAILY [facility] Last Admin: 03/02/19 09:12 Dose: 12.5 mg Pantoprazole Sodium (Protonix Iv) 40 mg IVPUSH DAILY [facility] Last Admin: 03/04/19 12:33 Dose: 40 mg Potassium Chloride (Potassium Chloride Oral Liquid) 40 meq NGT BID [facility] Stop: 03/04/19 22:01 Last Admin: 03/04/19 10:33 Dose: Not Given Potassium Phos/Sodium Phos (Phos-Nak Packet -) 1 packet PO DAILY [facility] Last Admin: 03/03/19 16:03 Dose: Not Given Sodium Chloride ([place] Nasal [place] -) 2 spray NS TID PRN PRN Reason: NASAL CONGESTION Thiamine HCl (Vitamin B1 Injection -) 200 mg IVPB DAILY [facility] Last Admin: 03/03/19 13:22 Dose: 200 mg - Objective Vital Signs: Vital Signs Temperature 92.1 F L 03/04/19 11:00 Pulse Rate 63 03/04/19 11:00 Respiratory Rate 20 03/04/19 11:30 Blood Pressure 106/57 L 03/04/19 11:00 O2 Sat by Pulse Oximetry (%) 95 03/04/19 11:30 Constitutional: Yes: Calm Neck: Yes: Other (intubated) Cardiovascular: Yes: Regular Rate and Rhythm, S1, S2 Respiratory: Yes: Mechanically Ventilated Gastrointestinal: Yes: Normal Bowel Sounds, Soft Neurological: Yes: Other (sedated and intubated) Labs: CBC, BMP 03/04/19 05:10 03/04/19 05:10 Problem List - Problems (1) Cardiopulmonary arrest Assessment/Plan: intubated sedated icu monitoring hypothermia protocol on pressors wbc count trending up and is on stress dose steroids meropenem and vancomycin Code(s): I46.9 - CARDIAC ARREST, CAUSE UNSPECIFIED (2) Elevated troponin Assessment/Plan: echo heparin drip statin aspirin Code(s): R74.8 - ABNORMAL LEVELS OF OTHER SERUM ENZYMES Assessment/Plan hypokalemia: repleted recheck bmp and magnesium
--- NOTE | 2019-03-04 15:54 | PN ---
Progress Note, Physician History of Present Illness: OFF SEDATION REMAINS UNRESPONSIVE ON VENTILATOR HYPOTENSIVE ON PRESSORS HYPOTHERMIA PROTOCOL COMPLETED WBC 25K BC NO GROWTH - Current Medication List Current Medications: Active Medications Albuterol Sulfate (Ventolin 0.083% Nebulizer Soln -) 1 amp NEB Q4H PRN PRN Reason: SHORT OF BREATH/WHEEZING Aspirin (Asa -) 81 mg PO DAILY [facility] Last Admin: 03/03/19 16:03 Dose: Not Given Atorvastatin Calcium (Lipitor -) 40 mg PO HS [facility] Last Admin: 03/03/19 21:40 Dose: Not Given Cyanocobalamin (Vitamin B12 Injection -) 1,000 mcg IM DAILY [facility] Stop: 03/05/19 10:01 Last Admin: 03/03/19 13:19 Dose: 1,000 mcg Fluticasone Propionate (Flonase -) 1 spray NS BID [facility] Last Admin: 03/03/19 21:40 Dose: Not Given Folic Acid (Folic Acid -) 1 mg PO DAILY [facility] Last Admin: 03/03/19 16:03 Dose: Not Given Heparin Sodium (Porcine) (Heparin -) 3,500 unit 40 unit/kg (3500 unit) IVPUSH PRN PRN PRN Reason: For aPTT 35 to 45 seconds Heparin Sodium (Porcine) (Heparin -) 7,000 unit 80 unit/kg (7000 unit) IVPUSH PRN PRN PRN Reason: aPTT <35 seconds Hydrocortisone Sodium Succinate (Solu-Cortef -) 100 mg IVPUSH Q8H-IV [facility] Last Admin: 03/04/19 12:33 Dose: 100 mg Norepinephrine Bitartrate 8, (000 mcg/ Dextrose) 500 mls @ 18.75 mls/hr IV TITR [facility]; Protocol Last Admin: 03/04/19 11:00 Dose: 4 mcg/min, 15 mls/hr Heparin Sodium/Dextrose (Heparin Infusion -) 25,000 units in 500 mls @ 31.515 mls/hr IVPB TITR [facility]; Protocol Last Titration: 03/04/19 04:45 Dose: 12 units/kg/hr, 21.01 mls/hr Midazolam HCl (Midazolam 100mg/100ml-0.9%Nacl) 100 mg in 100 mls @ 1 mls/hr IVPB TITR [facility]; Protocol Last Admin: 03/04/19 03:09 Dose: 6 mg/hr, 6 mls/hr Vancomycin HCl (Vancomycin (Pre-Docked)) 1,000 mg in 250 mls @ 166.667 mls/hr IVPB Q24H [facility]; Protocol Last Admin: 03/04/19 12:06 Dose: 166.667 mls/hr Meropenem 500 mg/ Dextrose 100 mls @ 200 mls/hr IVPB Q8H-IV [facility] Last Admin: 03/04/19 10:33 Dose: 200 mls/hr Fentanyl 500 mcg/ Dextrose 100 mls @ 10 mls/hr IVPB TITR [facility]; Protocol Last Admin: 03/04/19 03:10 Dose: 50 mcg/hr, 10 mls/hr Insulin Aspart (Novolog Vial Sliding Scale -) 1 vial SQ Q4HPO [facility]; Protocol Last Admin: 03/04/19 05:16 Dose: 6 units Methimazole (Tapazole -) 5 mg PO BID [facility] Last Admin: 03/03/19 21:41 Dose: Not Given Metoprolol Succinate (Toprol Xl -) 12.5 mg PO DAILY [facility] Last Admin: 03/02/19 09:12 Dose: 12.5 mg Pantoprazole Sodium (Protonix Iv) 40 mg IVPUSH DAILY [facility] Last Admin: 03/04/19 12:33 Dose: 40 mg Potassium Chloride (Potassium Chloride Oral Liquid) 40 meq NGT BID [facility] Stop: 03/04/19 22:01 Last Admin: 03/04/19 10:33 Dose: Not Given Potassium Phos/Sodium Phos (Phos-Nak Packet -) 1 packet PO DAILY [facility] Last Admin: 03/03/19 16:03 Dose: Not Given Sodium Chloride ([place] Nasal [place] -) 2 spray NS TID PRN PRN Reason: NASAL CONGESTION Thiamine HCl (Vitamin B1 Injection -) 200 mg IVPB DAILY [facility] Last Admin: 03/03/19 13:22 Dose: 200 mg - Objective Vital Signs: Vital Signs Temperature 92.1 F L 03/04/19 11:00 Pulse Rate 63 03/04/19 11:00 Respiratory Rate 20 03/04/19 13:54 Blood Pressure 106/57 L 03/04/19 11:00 O2 Sat by Pulse Oximetry (%) 95 03/04/19 11:30 Constitutional: Yes: Obese Cardiovascular: Yes: Regular Rate and Rhythm, Bradycardia, S1, S2 Respiratory: Yes: Mechanically Ventilated Gastrointestinal: Yes: Normal Bowel Sounds, Soft, Abdomen, Obese. No: Tenderness Labs: CBC, BMP 03/04/19 05:10 Assessment/Plan S/P CARDIOPULMONARY ARREST R/O SEPSIS CARL PROBABLE SHOCK LIVER COPD AWAIT C/S CONTINUE EMPIRIC MEROPENEM VENTILATORY/ HEMODYNAMIC SUPPORT PROGNOSIS POOR
--- NOTE | 2019-03-04 16:07 | PN ---
Progress Note, Physician Chief Complaint: S/P Cardiac arrest History of Present Illness: This is a 73 year old female with a PMH of HTN, HLD, pre-DM2, and COPD. She was initially admitted for a COPD exacerbation with respiratory failure and was treated with steroids and ABXC. She was found unresponsive and a code 99 called and CPR administered with ROSC after several round of epi, bicarb, followed by 1 cardioversion, hypothermia protocol initiated. She was noted to be in AFIB with RVR. Amiodarone was started and she converted to NSR. 03/04/19 She remains intubated, on pressors, and unresponsive. Echocardiogram EF 60% DD Normal RV size and function Mild MR No TR No AI Trops trending down 1.54 to 0.91 K+ 2.7 - Current Medication List Current Medications: Active Medications Albuterol Sulfate (Ventolin 0.083% Nebulizer Soln -) 1 amp NEB Q4H PRN PRN Reason: SHORT OF BREATH/WHEEZING Aspirin (Asa -) 81 mg PO DAILY [facility] Last Admin: 03/03/19 16:03 Dose: Not Given Atorvastatin Calcium (Lipitor -) 40 mg PO HS [facility] Last Admin: 03/03/19 21:40 Dose: Not Given Cyanocobalamin (Vitamin B12 Injection -) 1,000 mcg IM DAILY [facility] Stop: 03/05/19 10:01 Last Admin: 03/03/19 13:19 Dose: 1,000 mcg Fluticasone Propionate (Flonase -) 1 spray NS BID [facility] Last Admin: 03/03/19 21:40 Dose: Not Given Folic Acid (Folic Acid -) 1 mg PO DAILY [facility] Last Admin: 03/03/19 16:03 Dose: Not Given Heparin Sodium (Porcine) (Heparin -) 3,500 unit 40 unit/kg (3500 unit) IVPUSH PRN PRN PRN Reason: For aPTT 35 to 45 seconds Heparin Sodium (Porcine) (Heparin -) 7,000 unit 80 unit/kg (7000 unit) IVPUSH PRN PRN PRN Reason: aPTT <35 seconds Hydrocortisone Sodium Succinate (Solu-Cortef -) 100 mg IVPUSH Q8H-IV [facility] Last Admin: 03/04/19 12:33 Dose: 100 mg Norepinephrine Bitartrate 8, (000 mcg/ Dextrose) 500 mls @ 18.75 mls/hr IV TITR [facility]; Protocol Last Admin: 03/04/19 11:00 Dose: 4 mcg/min, 15 mls/hr Heparin Sodium/Dextrose (Heparin Infusion -) 25,000 units in 500 mls @ 31.515 mls/hr IVPB TITR [facility]; Protocol Last Titration: 03/04/19 04:45 Dose: 12 units/kg/hr, 21.01 mls/hr Midazolam HCl (Midazolam 100mg/100ml-0.9%Nacl) 100 mg in 100 mls @ 1 mls/hr IVPB TITR [facility]; Protocol Last Admin: 03/04/19 03:09 Dose: 6 mg/hr, 6 mls/hr Vancomycin HCl (Vancomycin (Pre-Docked)) 1,000 mg in 250 mls @ 166.667 mls/hr IVPB Q24H [facility]; Protocol Last Admin: 03/04/19 12:06 Dose: 166.667 mls/hr Meropenem 500 mg/ Dextrose 100 mls @ 200 mls/hr IVPB Q8H-IV [facility] Last Admin: 03/04/19 10:33 Dose: 200 mls/hr Fentanyl 500 mcg/ Dextrose 100 mls @ 10 mls/hr IVPB TITR [facility]; Protocol Last Admin: 03/04/19 03:10 Dose: 50 mcg/hr, 10 mls/hr Insulin Aspart (Novolog Vial Sliding Scale -) 1 vial SQ Q4HPO [facility]; Protocol Last Admin: 03/04/19 05:16 Dose: 6 units Methimazole (Tapazole -) 5 mg PO BID [facility] Last Admin: 03/03/19 21:41 Dose: Not Given Metoprolol Succinate (Toprol Xl -) 12.5 mg PO DAILY [facility] Last Admin: 03/02/19 09:12 Dose: 12.5 mg Pantoprazole Sodium (Protonix Iv) 40 mg IVPUSH DAILY [facility] Last Admin: 03/04/19 12:33 Dose: 40 mg Potassium Chloride (Potassium Chloride Oral Liquid) 40 meq NGT BID [facility] Stop: 03/04/19 22:01 Last Admin: 03/04/19 10:33 Dose: Not Given Potassium Phos/Sodium Phos (Phos-Nak Packet -) 1 packet PO DAILY [facility] Last Admin: 03/03/19 16:03 Dose: Not Given Sodium Chloride ([place] Nasal [place] -) 2 spray NS TID PRN PRN Reason: NASAL CONGESTION Thiamine HCl (Vitamin B1 Injection -) 200 mg IVPB DAILY [facility] Last Admin: 03/03/19 13:22 Dose: 200 mg - Objective Vital Signs: Vital Signs Temperature 92.1 F L 03/04/19 11:00 Pulse Rate 63 03/04/19 11:00 Respiratory Rate 20 03/04/19 13:54 Blood Pressure 106/57 L 03/04/19 11:00 O2 Sat by Pulse Oximetry (%) 95 03/04/19 11:30 Constitutional: Yes: Other (Intubated and unresponsive) Neck: Yes: WNL Cardiovascular: Yes: Regular Rate and Rhythm (NL S1S2 no MRHG) Respiratory: Yes: Mechanically Ventilated Gastrointestinal: Yes: Soft Edema: LLE: Trace, RLE: Trace Neurological: Yes: Unresponsive Labs: CBC, BMP 03/04/19 05:10 Assessment/Plan 73 year old female with a PMH of HTN, HLD, pre-DM2, and COPD. She was initially admitted for a COPD exacerbation with respiratory failure and was treated with steroids and ABXC. She was found unresponsive and a code 99 called and CPR administered with ROSC after several round of epi, bicarb, followed by 1 cardioversion, hypothermia protocol initiated. She was noted to be in AFIB with RVR. Amiodarone was started and she converted to NSR. 03/04/19 She remains intubated, on pressors, and unresponsive. Echocardiogram EF 60% Normal RV size and function Trops trending down 1.54 to 0.91 K+ 2.7 Remains in NSR Recommend: Continue supportive care Replete K+ Hold metoprolol PE less likely given normal RV size and function with no TR
[2019-03-04 16:24] LABS: BLOOD UREA NITROGEN 37.3 mg/dL (7-18); CALCIUM 7.1 mg/dL (8.5-10.1); CREATININE 1.9 mg/dL (0.55-1.3); POTASSIUM 3.1 mmol/L (3.5-5.1)
[2019-03-04 16:47] LABS: INR 1.49 (0.83-1.09)
[2019-03-04] MEDS: ASPIRIN 81 MG CHEWABLE TABLETS PO SCH (17:18)
[2019-03-04] MEDS: FOLIC ACID 1 MG TABLET (FP) PO SCH (17:19)
[2019-03-04] MEDS: FLUTICASONE PROP 0.05% 16 GM NASAL SPRAY NS SCH ×2 (17:19→21:10)
[2019-03-04] MEDS: NAPH,MB-DB/K PH,MBDB POWDER PACKET PO SCH (17:23)
[2019-03-04] MEDS: METHIMAZOLE 5 MG TABLET (FP) PO SCH (17:25)
[2019-03-04 17:55] LABS: ACTIVATED PTT > 400.0 SECONDS (25.2-36.5)
[2019-03-04] MEDS ORDERED: INSULIN (NOVOLOG) ASPART 100 UNITS/ML 10ML VIAL ONE (18:21)
[2019-03-04] MEDS: HEPARIN INFUSION - 25,000 UNITS/500 ML INFUS.BAG IVPB SCH (19:27)
[2019-03-04] MEDS ORDERED: PT OWN MED DRAWER 7, Y5N ONE (19:47)
[2019-03-04] MEDS: ATORVASTATIN CA 40 MG TABLET (FP) PO SCH (21:10)
[2019-03-04] MEDS: METHIMAZOLE 10 MG TABLET (FP) PO SCH (21:10)
[2019-03-05] MEDS: HYDROCORTISONE SOD SUCCINATE 100 MG/2 ML VIAL IVPUSH SCH ×2 (01:58→10:45)
[2019-03-05] MEDS: INSULIN SLIDING SCALE (NOVOLOG) 1 VIAL SQ SCH ×4 (01:58→14:50)
[2019-03-05] MEDS: NOREPINEPHRINE BITARTRATE 8,000 MCG in DEXTROSE 5%-WATER - 492 ML IV SCH ×2 (02:26→05:42)
[2019-03-05] MEDS: MEROPENEM 500 MG in DEXTROSE 5%-WATER 100 ML IVPB SCH ×2 (02:27→09:28)
[2019-03-05] MEDS ORDERED: SODIUM CHLORIDE 500 ML IV STA (05:07)
[2019-03-05] MEDS ORDERED: VASOPRESSIN 50 UNITS in SODIUM CHLORIDE 97.5 ML IVPB SCH (05:15)
[2019-03-05] MEDS ORDERED: VASOPRESSIN 20 UNITS/ML VIAL IV ONE (05:24)
[2019-03-05 05:41] LABS: HEMATOCRIT 33.6 % (32.4-45.2); HEMOGLOBIN 11.4 GM/dL (10.7-15.3); MCH 31.9 pg (25.7-33.7); MCHC 33.8 g/dl (32.0-36.0); MEAN CELL VOLUME 94.3 fl (80-96); MEAN PLT VOLUME 7.8 fl (7.5-11.1); RBC 3.57 M/mm3 (3.60-5.2)
[2019-03-05] MEDS: METHIMAZOLE 10 MG TABLET (FP) PO SCH ×2 (05:42→15:19)
[2019-03-05 05:48] LABS: WHITE BLOOD COUNT 33.3 K/mm3 (4.0-10.0)
--- NOTE | 2019-03-05 06:08 | PN ---
Progress Note (short form) - Note Progress Note: UPDATE 1: Pt stabilized MAPs of 65 at this point, tachycardic at 118bpm and saturation of 96%. Will continue to titrate pressors down as hemodynamics allow (goal of levophed below 12 before vasopressin discontinued). Continue to decrease ventilator settings back to previous. Pt steadily decreasing MAP down to 50 alongside of increasing Levophed gtt requirements (currently 18) with notable sinus tachycardia at ~120bpm. CVP 7 and pt desaturation down to 75%. Pt temp currently at 98.3 after rewarming ~0.4 degrees per hour. Upon arrival pt agonally breathing and asynchronous with ventilator. Brief PE: GEN: Pt agonally breathing on ventilator over respiratory rate set on vent, minimal eye movement with sternal rub HEENT: gag reflex diminished but intact, pupils sluggishly reactive and symmetrical at 2mm, no secretions from ETT LUNGS: Tachypneic without significant wheezing or rales noted VENT: Breaths initiating before volume reaches zero on flow loop, obstructive pattern noted CARDIAC: Tachycardic with regular rate A/P: --Likely vent asynchronization and worsening hemodynamic stability 2/2 to anoxic brain injury --Bolus 500cc NS --Vasopressin 2.4U/hr started and goal is to reduce levophed gtt to alleviate tachy-arrhythmias --Changed ventilator settings: TV 450 (delta 0) Increased FiO2 60% (delta 10%) Increased PEEP 7 (delta 2) Increased I:E ratio due to likelihood of breath stacking from asynchrony ( 1:2 now vs. 1:1) --Started fentanyl gtt for comfort and ventilator synchrony --Prognosis poor --Hiro Moreira, DO - IM PGY-2
[2019-03-05 06:33] LABS: PLATELET COUNT 240 K/MM3 (134-434)
[2019-03-05 06:52] LABS: ALBUMIN 2.1 g/dl (3.4-5.0); ALK PHOS 80 U/L (45-117); ANION GAP 12 MMOL/L (8-16); BILIRUBIN,TOTAL 0.8 mg/dL (0.2-1); BLOOD UREA NITROGEN 42.3 mg/dL (7-18); CHLORIDE 98 mmol/L (98-107); CO2 24 mmol/L (21-32); CREATININE 2.5 mg/dL (0.55-1.3); GLUCOSE,RANDOM 196 mg/dL (74-106); MAGNESIUM 1.8 mg/dL (1.8-2.4); PHOSPHOROUS 4.5 mg/dL (2.5-4.9); POTASSIUM 3.9 mmol/L (3.5-5.1); SGOT/AST 1455 U/L (15-37); SGPT/ALT > 1000 U/L (13-61); SODIUM 133 mmol/L (136-145); TOT PROT 4.4 g/dl (6.4-8.2)
[2019-03-05] MEDS: HEPARIN INFUSION - 25,000 UNITS/500 ML INFUS.BAG IVPB SCH (07:00)
--- NOTE | 2019-03-05 07:49 | PN ---
Physical Exam: SUBJECTIVE: Patient seen and examined at bedside. Patient is unresponsive to verbal stimuli and sternal rub off sedation. Overnight, patient was noted to be hypotensive, with decreasing MAP, and was re-started on Vasopressin, with increased Levophed rate. CT head reveals diffuse bilateral cerebral and cerebellar edema. Case discussed with family at bedside. OBJECTIVE: Vital Signs Period Temp Pulse Resp BP Sys/Gonzalez Pulse Ox Last 24 Hr 91.0 F-98.6 F 58-123 18-26 86-141/44-67 90-100 GENERAL: The patient is intubated. Currently, off sedation. HEENT: Normocephalic. Pupils 2mm, with sluggish reaction to light. Sclera anicteric. Dry mucous membranes. Right sided internal jugular central venous catheter. NECK: Supple, without lymphadenopathy LUNGS: Mechanical breath sounds, equal air entry bilaterally. Faint rhonchi auscultated bilaterally. HEART: S1, S2 auscultated without murmur, rub or gallop. RRR ABDOMEN: Obese abdomen. Soft, mildly distended. Hypoactive bowel sounds x4 quadrants. Hepatomegaly palpated and percussed 2cm below costal margin. No rigidity appreciated. EXTREMITIES: 1+ radial, dorsalis pedis pulses bilaterally. Trace pitting edema bilateral lower extremities. NEUROLOGICAL: Patient is unresponsive to voice or sternal rub off sedation. SKIN: Warm, dry. Eccchymosis noted along abdomen. Laboratory Results - last 24 hr 03/04/19 03/04/19 03/04/19 05:10 08:50 12:45 WBC RBC Hgb Hct MCV MCH MCHC RDW Plt Count 202 D MPV Manual Slide Review Y PT with INR INR PTT (Actin FS) > 400.0 H Fibrinogen Sodium Potassium Chloride Carbon Dioxide Anion Gap BUN Creatinine Est GFR (CKD-EPI)AfAm Est GFR (CKD-EPI)NonAf POC Glucometer 174 Random Glucose Calcium Phosphorus Magnesium Total Bilirubin AST ALT Alkaline Phosphatase Total Protein Albumin 03/04/19 03/04/19 03/04/19 15:00 15:00 15:00 WBC RBC Hgb Hct MCV MCH MCHC RDW Plt Count MPV Manual Slide Review PT with INR 17.70 H INR 1.49 H PTT (Actin FS) > 400.0 H Fibrinogen 351.0 Sodium 136 Potassium 3.1 L Chloride 99 Carbon Dioxide 28 Anion Gap 9 BUN 37.3 H Creatinine 1.9 H Est GFR (CKD-EPI)AfAm 29.79 Est GFR (CKD-EPI)NonAf 25.70 POC Glucometer Random Glucose 185 H Calcium 7.1 L Phosphorus Magnesium 2.0 Total Bilirubin AST ALT Alkaline Phosphatase Total Protein Albumin 03/04/19 03/04/19 03/04/19 17:47 21:42 22:30 WBC RBC Hgb Hct MCV MCH MCHC RDW Plt Count MPV Manual Slide Review PT with INR INR PTT (Actin FS) 45.1 H Fibrinogen Sodium Potassium Chloride Carbon Dioxide Anion Gap BUN Creatinine Est GFR (CKD-EPI)AfAm Est GFR (CKD-EPI)NonAf POC Glucometer 170 207 Random Glucose Calcium Phosphorus Magnesium Total Bilirubin AST ALT Alkaline Phosphatase Total Protein Albumin 03/04/19 03/05/19 03/05/19 22:30 01:53 05:20 WBC 33.3 H* RBC 3.57 L Hgb 11.4 Hct 33.6 D MCV 94.3 MCH 31.9 MCHC 33.8 RDW 13.0 Plt Count 240 MPV 7.8 Manual Slide Review PT with INR INR PTT (Actin FS) Fibrinogen Sodium Potassium 3.8 Chloride Carbon Dioxide Anion Gap BUN Creatinine Est GFR (CKD-EPI)AfAm Est GFR (CKD-EPI)NonAf POC Glucometer 170 Random Glucose Calcium Phosphorus Magnesium Total Bilirubin AST ALT Alkaline Phosphatase Total Protein Albumin 03/05/19 03/05/19 05:20 05:46 WBC RBC Hgb Hct MCV MCH MCHC RDW Plt Count MPV Manual Slide Review PT with INR INR PTT (Actin FS) Fibrinogen Sodium 133 L Potassium 3.9 Chloride 98 Carbon Dioxide 24 Anion Gap 12 BUN 42.3 H Creatinine 2.5 H Est GFR (CKD-EPI)AfAm 21.38 Est GFR (CKD-EPI)NonAf 18.44 POC Glucometer 165 Random Glucose 196 H Calcium Phosphorus 4.5 Magnesium 1.8 Total Bilirubin 0.8 AST 1455 H ALT > 1000 H Alkaline Phosphatase 80 Total Protein 4.4 L Albumin 2.1 L Active Medications Generic Name Dose Route Start Last Admin Trade Name Freq PRN Reason Stop Dose Admin Albuterol Sulfate 1 amp 02/28/19 10:27 Ventolin 0.083% Nebulizer Soln - NEB Q4H PRN SHORT OF BREATH/WHEEZING Aspirin 81 mg 02/26/19 10:00 03/04/19 17:18 Asa - PO Not Given DAILY [facility] Atorvastatin Calcium 40 mg 02/25/19 22:00 03/04/19 21:10 Lipitor - PO Not Given HS STU Cyanocobalamin 1,000 mcg 02/27/19 10:45 03/04/19 11:05 Vitamin B12 Injection - IM 03/05/19 10:01 1,000 mcg DAILY [facility] Administration Fluticasone Propionate 1 spray 02/27/19 22:00 03/04/19 21:10 Flonase - NS Not Given BID [facility]U Folic Acid 1 mg 02/27/19 10:45 03/04/19 17:19 Folic Acid - PO Not Given DAILY [facility] Heparin Sodium (Porcine) 3,500 unit 03/03/19 06:48 Heparin - 40 unit/kg (3500 unit) IVPUSH PRN PRN For aPTT 35 to 45 seconds Heparin Sodium (Porcine) 7,000 unit 03/03/19 06:48 Heparin - 80 unit/kg (7000 unit) IVPUSH PRN PRN aPTT <35 seconds Hydrocortisone Sodium Succinate 100 mg 03/03/19 10:00 03/05/19 01:58 Solu-Cortef - IVPUSH 100 mg Q8H-IV [facility] Administration Norepinephrine Bitartrate 8, 500 mls @ 18.75 mls/hr 03/03/19 06:30 03/05/19 06:33 000 mcg/ Dextrose IV 15 mcg/min TITR [facility] 56.25 mls/hr Titration Protocol 5 MCG/MIN Heparin Sodium/Dextrose 25,000 units in 500 mls @ 31.515 mls/hr 03/03/19 07: 00 03/04/19 23:10 Heparin Infusion - IVPB 10.28 units/kg/hr TITR [facility] 18 mls/hr Titration Protocol 18 UNITS/KG/HR Midazolam HCl 100 mg in 100 mls @ 1 mls/hr 03/03/19 10:00 03/04/19 17:22 Midazolam 100mg/100ml-0.9%Nacl IVPB Not Given TITR [facility] Protocol 1 MG/HR Vancomycin HCl 1,000 mg in 250 mls @ 166.667 mls/hr 03/03/19 11:45 03/04/19 12:06 Vancomycin (Pre-Docked) IVPB 166.667 mls/hr Q24H [facility] Administration Protocol Meropenem 500 mg/ Dextrose 100 mls @ 200 mls/hr 03/03/19 11:45 03/05/19 02:27 IVPB 200 mls/hr Q8H-IV [facility] Administration Fentanyl 500 mcg/ Dextrose 100 mls @ 10 mls/hr 03/03/19 14:45 03/05/19 06:55 IVPB 50 mcg/hr TITR [facility] 10 mls/hr Titration Protocol 50 MCG/HR Vasopressin 50 units/ Sodium 100 mls @ 4 mls/hr 03/05/19 05:15 03/05/19 05:38 Chloride IVPB 2 units/hr ASDIR [facility] 4 mls/hr Administration Protocol 2 UNITS/HR Insulin Aspart 1 vial 03/03/19 18:00 03/05/19 05:50 Novolog Vial Sliding Scale - SQ 2 units Q4HPO [facility] Administration Protocol Methimazole 10 mg 03/04/19 22:00 03/05/19 05:42 Tapazole - PO Not Given TID [facility] Metoprolol Succinate 12.5 mg 02/26/19 10:00 03/02/19 09:12 Toprol Xl - PO 12.5 mg DAILY [facility] Administration Pantoprazole Sodium 40 mg 03/03/19 11:15 03/04/19 12:33 Protonix Iv IVPUSH 40 mg DAILY [facility] Administration Potassium Phos/Sodium Phos 1 packet 03/01/19 10:00 03/04/19 17:23 Phos-Nak Packet - PO Not Given DAILY [facility] Sodium Chloride 2 spray 02/27/19 15:21 [place] Nasal [place] - NS TID PRN NASAL CONGESTION Thiamine HCl 200 mg 02/27/19 10:45 03/04/19 11:00 Vitamin B1 Injection - IVPB 200 mg DAILY [facility] Administration ASSESSMENT/PLAN: Patient is a 73 year old female with history of COPD, hypertension, hyperlipidemia, osteoarthritis, pre-diabetes, presented with complaint of shortness of breath. Admitted to ICU after cardiac arrest. Neurologic -Patient is currently off sedation. Patient was unresponsive to voice, and sternal rub prior to initiation of sedation -CT head reveals diffuse bilateral cerebral and cerebellar edema. -Hold Olanzapine while patient sedated -Monitor for signs of mental status changes -Neurology consult (Dr. Soto) appreciated Cardiac S/P three episodes cardiac arrest Afib vs. SVT History of hypertension History of hyperlipidemia -Troponin peaked at 1.78 -Patient on Heparin drip. Follow PTT -Hypothermia protocol completed. -Hydrocortisone 100mg IV Q8H stress dose steroids -Cardiac ECHO shows left ventricle normal in size, and normal systolic function. EF 60-65%. Grade 1 diastolic dysfunction. Right ventricle systolic function normal. No pericardial effusion. -Cardiac monitoring -CVP monitoring. Maintain between 8-12 -Cardiology recommendations (Dr. Gomez) appreciated Pulmonary -Intubated. Ventilator settings RR 20, TV 450 FiO2 60%, PEEP 7 -ABG pH 7.46, CO2 34.4, O2 119, HCO3 24.3. -Maintain oxygen saturation greater than 90% -Daily CXR -Duplex US lower extremities negative for pulmonary embolism. Gastrointestinal -Currently NPO while intubated -Transamitis likely secondary to shock. AST 1455, ALT greater than 1000, Alkaline phosphatase 80, total bilirubin 0.8 -Will trend CMP Renal -CARL likely secondary to hypoperfusion during cardiac arrest -BUN 42.3 / Cr 2.5 -Follow slade catheter output -Will trend CMP -Nephrology recommendations (Dr. Olmedo) appreciated Infectious disease -WBC increased to 33.3 s/p cardiac arrest. -Repeat blood, urine cultures negative for growth at 24 hours -Empiric Meropenem 500mg IV Q8H -Infectious disease recommendations (Dr. Pepe) appreciated. FEN -Fluids: No IV fluids currently indicated. -Electrolytes: Hypocalcemia, repleted. Follow CMP, replete as necessary. -Nutrition: NPO while intubated. Prophylaxis -Patient is on Heparin drip -Protonix 40mg IV daily Disposition -Continue care in ICU. Case discussed with [facility] ([place]). Currently patient is NOT a candidate. Case discussed with primary team (Francesca Leslie). Visit type - Emergency Visit Emergency Visit: Yes ED Registration Date: 02/25/19 Care time: The patient presented to the Emergency Department on the above date and was hospitalized for further evaluation of their emergent condition. - New Patient This patient is new to me today: No - Critical Care Critical Care patient: Yes Total Critical Care Time (in minutes): 35 Critical Care Statement: The care of this patient involved high complexity decision making to prevent further life threatening deterioration of the patient 's condition and/or to evaluate & treat vital organ system(s) failure or risk of failure. - Discharge Referral Referred to [facility] No
[2019-03-05] MEDS ORDERED: PT OWN MED DRAWER 7, Y5N ONE (07:58)
[2019-03-05] MEDS ORDERED: fentaNYL CITRATE 250 MCG/5 ML VIAL ONE (08:00)
[2019-03-05] MEDS ORDERED: CALCIUM GLUCONATE 10% - 1,000 MG/10 ML VIAL IVPB ONE (08:18)
[2019-03-05 08:19] LABS: CALCIUM 6.9 mg/dL (8.5-10.1)
[2019-03-05] MEDS ORDERED: DOPAMINE 400 MG/D5W - 400,000 MCG/250 ML INFUS.BAG IVPB SCH (09:00)
[2019-03-05] MEDS: MIDAZOLAM IN 0.9 % SOD.CHLORID 100 MG/100 ML PLAST..BAG IVPB SCH (09:28)
[2019-03-05] MEDS: PANTOPRAZOLE SODIUM 40 MG VIAL IVPUSH SCH (09:29)
[2019-03-05] MEDS: CYANOCOBALAMIN (VITAMIN B-12) 1000 MCG/1 ML VIAL IM SCH (09:30)
--- NOTE | 2019-03-05 10:16 | CON.NEURO ---
Consult - Past Medical History Cardio/Vascular: Yes: HTN, Hyperlipdemia Pulmonary: Yes: COPD Musculoskeletal: Yes: Osteoarthritis ENT: Yes: Allergic Rhinitis Endocrine: Yes: Diabetes Mellitus (Prediabetes) - Past Surgical History Past Surgical History: Yes: Joint Replacement (right hip replacement, left arm surgery) - Alcohol/Substance Use Hx Alcohol Use: No History of Substance Use: reports: None - Smoking History Smoking history: Former smoker (smoked over 1 ppd for over 40 years, quit 6 years ago) Have you smoked in the past 12 months: No Aproximately how many cigarettes per day: 0 If you are a former smoker, when did you quit?: 2012 - Social History Usual Living Arrangement: Alone ADL: Independent History of Recent Travel: No Home Medications - Allergies Allergies/Adverse Reactions: Allergies Allergy/AdvReac Type Severity Reaction Status Date / Time Penicillins Allergy Verified 03/04/19 17:01 - Home Medications Home Medications: Ambulatory Orders Atorvastatin Ca [Lipitor] 40 mg PO HS 03/22/13 Cholecalciferol (Vitamin D3) [Vitamin D3] 1,000 unit PO DAILY 08/28/15 Cyanocobalamin [Vitamin B12 -] 1,000 mcg PO DAILY 08/28/15 [place]-3 Fatty Acids [Fish Oil] 300 mg PO DAILY 08/28/15 Aspirin [ASA -] 81 mg PO DAILY 08/08/16 Metoprolol Succinate [Toprol XL -] 12.5 mg PO DAILY 08/08/16 Family Disease History - Family Disease History Family Disease History: Other: Father (htn), Mother (htn) Physical Exam-Neuro Vital Signs: Vital Signs Temperature 99 F 03/05/19 09:00 Pulse Rate 114 H 03/05/19 09:00 Respiratory Rate 23 H 03/05/19 09:00 Blood Pressure 89/53 L 03/05/19 09:00 O2 Sat by Pulse Oximetry (%) 91 L 03/05/19 08:25 Labs: CBC, BMP 03/05/19 05:20 03/05/19 05:20 INR, PTT INR 1.49 (0.83-1.09) H 03/04/19 15:00 Fibrinogen 351.0 mg/dL (238-498) 03/04/19 15:00 Assessment/Plan cc Hypoxic Ischemic Encephalopathy HPI 73 year old female history of COPD, OA, Prediabetic, HTN , HLD. Patient presented with worsening of copd. Patient was seen by dr Jimenez and was suspected to be Restless leg syndrome. On 03/03/2019 she has cardiac arrest and ACLS protocol started. Patient is not waking up and intuabted and minimal triggering vent. There is no response to pain or verbal stimuli. Patient is off sedation. She had ct head and it showed bilateral cerebral and cerebellar ischemic changes consistent with hypoxic and ischemic encephalopathy PMH HTN,HLD, COPD, Arthritis, Prediabetes. Former smoker Home Medications: Atorvastatin Ca [Lipitor] 40 mg PO HS 03/22/13 Cholecalciferol (Vitamin D3) [Vitamin D3] 1,000 unit PO DAILY 08/28/15 Cyanocobalamin [Vitamin B12 -] 1,000 mcg PO DAILY 08/28/15 [place]-3 Fatty Acids [Fish Oil] 300 mg PO DAILY 08/28/15 Aspirin [ASA -] 81 mg PO DAILY 08/08/16 Metoprolol Succinate [Toprol XL -] 12.5 mg PO DAILY 08/08/16 NEUROLOGICAL EXAMINATION Patient on ventilator on pressures and no sedation There is no response to pain or verbal stimuli pupils non reactive more so on right and left is slightly reactive coreal reflex are absent caloric test and dolls eye movement is negative pateint has minimal triggering of vent ct head reviewed showed bilateral cortical and cerebellar ischemic changes Range of possibility discussed with family at bed side. Chart reviewed, spoke to primary team, I spent 35 minute doing critical care Assessment/Plan Diffuse Hypoxic Ischemic Encephalopathy secondary to cardiac arrest. Patient is off sedation and on pressures for and there is no cortical sign adn very minimal brain stem sign , overall prognosis is poor at this time. Please feel free to call me if you have any question Thanking you so much Ayden Soto MD
[2019-03-05] MEDS: THIAMINE HCL 200 MG/2 ML VIAL IVPB SCH (10:47)
[2019-03-05] MEDS: VANCOMYCIN 1 GRAM (PRE-DOCKED) 1,000 MG/250 ML BAG IVPB SCH (11:09)
[2019-03-05] MEDS: NAPH,MB-DB/K PH,MBDB POWDER PACKET PO SCH (11:11)
[2019-03-05] MEDS: FOLIC ACID 1 MG TABLET (FP) PO SCH (11:12)
[2019-03-05] MEDS: FLUTICASONE PROP 0.05% 16 GM NASAL SPRAY NS SCH (11:12)
[2019-03-05] MEDS: ASPIRIN 81 MG CHEWABLE TABLETS PO SCH (11:12)
[2019-03-05] MEDS: FENTANYL INJECTION 500 MCG in DEXTROSE 5%-WATER - 90 ML IVPB SCH (11:20)
--- NOTE | 2019-03-05 13:08 | PN ---
Teaching Attending Note Name of Resident: Freddy Blount ATTENDING PHYSICIAN STATEMENT I saw and evaluated the patient. I reviewed the resident's note and discussed the case with the resident. I agree with the resident's findings and plan as documented. SUBJECTIVE: Pt seen and examined in the ICU. Remains intubated, unresponsive off sedation. CT head done suggestive of diffuse anoxic brain injury. Back on levophed and vasopressin gtts. Echocardiogram without significant findings. OBJECTIVE: Vital Signs Period Temp Pulse Resp BP Sys/Gonzalez Pulse Ox Last 24 Hr 92.2 F-99.3 F 71-124 20-27 72-141/26-83 90-97 Intake & Output 03/02/19 03/03/19 03/04/19 03/05/19 23:59 23:59 23:59 23:59 Intake Total 500 3290 760 1296.4 Output Total 880 350 150 Balance 500 2410 410 1146.4 Weight 89.131 kg 93.128 kg 94.846 kg Gen: intubated, unresponsive Heart: RRR Lung: decreased breath sounds at the bases Abd: soft, nontender Ext: no edema CBC, BMP 03/05/19 05:20 03/05/19 05:20 Active Medications Albuterol Sulfate (Ventolin 0.083% Nebulizer Soln -) 1 amp NEB Q4H PRN PRN Reason: SHORT OF BREATH/WHEEZING Aspirin (Asa -) 81 mg PO DAILY [facility] Last Admin: 03/05/19 11:12 Dose: 81 mg Atorvastatin Calcium (Lipitor -) 40 mg PO HS STU Last Admin: 03/04/19 21:10 Dose: Not Given Fluticasone Propionate (Flonase -) 1 spray NS BID STU Last Admin: 03/05/19 11:12 Dose: Not Given Folic Acid (Folic Acid -) 1 mg PO DAILY [facility] Last Admin: 03/05/19 11:12 Dose: 1 mg Heparin Sodium (Porcine) (Heparin -) 3,500 unit 40 unit/kg (3500 unit) IVPUSH PRN PRN PRN Reason: For aPTT 35 to 45 seconds Heparin Sodium (Porcine) (Heparin -) 7,000 unit 80 unit/kg (7000 unit) IVPUSH PRN PRN PRN Reason: aPTT <35 seconds Hydrocortisone Sodium Succinate (Solu-Cortef -) 100 mg IVPUSH Q8H-IV STU Last Admin: 03/05/19 10:45 Dose: 100 mg Norepinephrine Bitartrate 8, (000 mcg/ Dextrose) 500 mls @ 18.75 mls/hr IV TITR STU; Protocol Last Titration: 03/05/19 10:00 Dose: 25 mcg/min, 93.75 mls/hr Heparin Sodium/Dextrose (Heparin Infusion -) 25,000 units in 500 mls @ 31.515 mls/hr IVPB TITR STU; Protocol Last Titration: 03/05/19 10:05 Dose: 7.28 units/kg/hr, 12.746 mls/hr Midazolam HCl (Midazolam 100mg/100ml-0.9%Nacl) 100 mg in 100 mls @ 1 mls/hr IVPB TITR STU; Protocol Last Admin: 03/05/19 09:28 Dose: Not Given Vancomycin HCl (Vancomycin (Pre-Docked)) 1,000 mg in 250 mls @ 166.667 mls/hr IVPB Q24H STU; Protocol Last Admin: 03/05/19 11:09 Dose: 166.667 mls/hr Meropenem 500 mg/ Dextrose 100 mls @ 200 mls/hr IVPB Q8H-IV STU Last Admin: 03/05/19 09:28 Dose: 200 mls/hr Fentanyl 500 mcg/ Dextrose 100 mls @ 10 mls/hr IVPB TITR STU; Protocol Last Titration: 03/05/19 06:55 Dose: 50 mcg/hr, 10 mls/hr Vasopressin 50 units/ Sodium (Chloride) 100 mls @ 4 mls/hr IVPB ASDIR STU; Protocol Last Titration: 03/05/19 09:10 Dose: 4 units/hr, 8 mls/hr Dopamine HCl/Dextrose (Dopamine 400 Mg/D5w -) 400,000 mcg in 250 mls @ 17.784 mls/hr IVPB TITR STU; Protocol Last Admin: 03/05/19 09:25 Dose: Not Given Insulin Aspart (Novolog Vial Sliding Scale -) 1 vial SQ Q4HPO STU; Protocol Last Admin: 03/05/19 11:10 Dose: 4 units Methimazole (Tapazole -) 10 mg PO TID STU Last Admin: 03/05/19 05:42 Dose: Not Given Metoprolol Succinate (Toprol Xl -) 12.5 mg PO DAILY [facility] Last Admin: 03/02/19 09:12 Dose: 12.5 mg Pantoprazole Sodium (Protonix Iv) 40 mg IVPUSH DAILY [facility] Last Admin: 03/05/19 09:29 Dose: 40 mg Potassium Phos/Sodium Phos (Phos-Nak Packet -) 1 packet PO DAILY [facility] Last Admin: 03/05/19 11:11 Dose: 1 packet Sodium Chloride ([place]al [place] -) 2 spray NS TID PRN PRN Reason: NASAL CONGESTION Thiamine HCl (Vitamin B1 Injection -) 200 mg IVPB DAILY [facility] Last Admin: 03/05/19 10:47 Dose: 200 mg ASSESSMENT AND PLAN: s/p Cardiopulmonary Arrest Shock/Multiorgan Dysfunction Acute Kidney Injury Lactic Acidosis Elevated LFTs likely Ischemic Injury +Troponins likely Demand Ischemia SVT vs Rapid Atrial Fibrillation Acute COPD Exacerbation Acute Bronchitis/Sinusitis HTN Hyperlipidemia Nonspecific Lung Nodules - continue empiric anticoagulation - completed hypothermia protocol - IVF to keep CVP 8-12 - titrate pressors to maintain MAP >65 - will need CTA chest when renal function improves - empiric stress dose steroids - inhaled bronchodilators standing and PRN - continue empiric antibiotic coverage - f/u cultures - titrate Fio2 to keep Spo2 >90% - hold all sedation to assess mental status - spontaneous breathing trials if mental status improved - outpt f/u of lung nodules - DVT/GI prophylaxis - poor prognosis, discussed with family at bedside - continue ICU monitoring critical care time spent in reviewing chart, evaluating patient and formulating plan 35 min Problem List - Problems (1) COPD exacerbation Code(s): J44.1 - CHRONIC OBSTRUCTIVE PULMONARY DISEASE W (ACUTE) EXACERBATION
[2019-03-05] MEDS ORDERED: LORazepam 2 MG/ML SDV VIAL IM PRN (15:53)
[2019-03-05] MEDS ORDERED: MORPHINE SULFATE/0.9% NACL/PF 100 MG/100 ML BAG IVPB SCH (16:00)
[2019-03-05] MEDS ORDERED: MORPHINE SULFATE 2 MG/ML VIAL IM ONE (16:00)
[2019-03-05] MEDS ORDERED: MORPHINE SULFATE 2 MG/ML VIAL IVPUSH ONE (17:05)
[2019-03-05 17:10] VITALS: BP 101/53; PULSE 83; TEMP 98.1
--- NOTE | 2019-03-05 17:21 | PN ---
Progress Note (short form) - Note Progress Note: Asked to assess patient for unresponsiveness after compassionate extubation. ( compassionate extubation at 16:50) Patient unresponsive to cerbal or physical stimuli. Absent pupillary reflexes to light bilaterally. Absent breath sounds along bilateral lung foss, without spontaneous respirations. Absent cardiac sounds. Absent carotid pulses bilaterally. Absent femoral pulses bilaterally. Time of 17:20 Case discussed with [employer]. Emotional support provided to family at bedside.
--- NOTE | 2019-03-05 18:35 | PN ---
Progress Note, Physician Chief Complaint: Seen patient earlier today Acute Hypoxic Respiratory Failure COPD exacerbation AMS History of Present Illness: -Mech vened in ICU -SVT's, hypotensive on pressors Intermittent twitching noted with eye opening Remains intubated, unresponsive off sedation. CT head done suggestive of diffuse anoxic brain injury - Current Medication List Current Medications: Active Medications Morphine Sulfate (Morphine 100mg/100ml-0.9% Nacl) 100 mg in 100 mls @ 1 mls/hr IVPB TITR STU; Protocol Last Admin: 03/05/19 16:45 Dose: 1 mg/hr, 1 mls/hr Lorazepam (Ativan Injection -) 1 mg IM Q6H PRN PRN Reason: AGITATION - Objective Vital Signs: Vital Signs Temperature 98.1 F 03/05/19 16:00 Pulse Rate 83 03/05/19 16:00 Respiratory Rate 20 03/05/19 16:00 Blood Pressure 101/53 L 03/05/19 16:00 O2 Sat by Pulse Oximetry (%) 95 03/05/19 13:00 Constitutional: Yes: Well Nourished, No Distress, Calm Cardiovascular: Yes: Tachycardia Respiratory: Yes: Mechanically Ventilated Labs: CBC, BMP 03/05/19 05:20 03/05/19 05:20 INR, PTT INR 1.49 (0.83-1.09) H 03/04/19 15:00 Fibrinogen 351.0 mg/dL (238-498) 03/04/19 15:00 Problem List - Problems (1) Bronchitis Code(s): J40 - BRONCHITIS, NOT SPECIFIED ACUTE OR CHRONIC (2) Cardiopulmonary arrest Code(s): I46.9 - CARDIAC ARREST, CAUSE UNSPECIFIED (3) Septic shock Code(s): A41.9 - SEPSIS, UNSPECIFIED ORGANISM; R65.21 - SEVERE SEPSIS WITH SEPTIC SHOCK (4) Toxic metabolic encephalopathy Code(s): G92 - TOXIC ENCEPHALOPATHY
== END 2019-03-05 20:00 | disposition expired | DRG 208 ==
LOC: JER 15:06 → JERBED 19:21 → J7W 21:28 → JICU 03-03 05:27
PROVIDERS: ADMIT Internal Medicine; ATTEND Family Medicine
PROC: 5A1945Z Respiratory Ventilation, 24-96 Consecutive Hours (ICD-10-PCS; principal; 2019-03-03)
PROC: 0CHY7BZ Insertion of Airway into Mouth and Throat, Via Natural or Artificial Opening (ICD-10-PCS; 2019-03-03)
PROC: 5A12012 Performance of Cardiac Output, Single, Manual (ICD-10-PCS; 2019-03-03)
DX: J44.1 Chronic obstructive pulmonary disease with (acute) exacerbation (principal); J96.01 Acute respiratory failure with hypoxia; K72.00 Acute and subacute hepatic failure without coma; A41.89 Other specified sepsis; R65.21 Severe sepsis with septic shock; G93.41 Metabolic encephalopathy; N17.9 Acute kidney failure, unspecified; I24.8 Other forms of acute ischemic heart disease; R44.3 Hallucinations, unspecified; E87.2 Acidosis; G93.1 Anoxic brain damage, not elsewhere classified; I47.1 Supraventricular tachycardia; I95.9 Hypotension, unspecified; G20 Parkinson's disease; E83.51 Hypocalcemia; E87.6 Hypokalemia; J20.9 Acute bronchitis, unspecified; J44.0 Chronic obstructive pulmonary disease with (acute) lower respiratory infection; G25.81 Restless legs syndrome; I48.0 Paroxysmal atrial fibrillation; R91.1 Solitary pulmonary nodule; I46.9 Cardiac arrest, cause unspecified; R41.82 Altered mental status, unspecified; R74.8 Abnormal levels of other serum enzymes; E87.5 Hyperkalemia; G43.909 Migraine, unspecified, not intractable, without status migrainosus; E78.5 Hyperlipidemia, unspecified; I10 Essential (primary) hypertension; R68.0 Hypothermia, not associated with low environmental temperature; J30.9 Allergic rhinitis, unspecified; E66.9 Obesity, unspecified; R73.03 Prediabetes; Z96.641 Presence of right artificial hip joint; Z87.891 Personal history of nicotine dependence; Z68.32 Body mass index [BMI] 32.0-32.9, adult; Z88.0 Allergy status to penicillin
CPT/HCPCS: 36415; 36600; 70450-TC; 70551-TC; 71045-TC-FY; 71250-TC; 76775-TC; 80048; 80053; 81003; 82550; 82553; 82565; 82607; 82803; 82962; 83036; 83540; 83550; 83605; 83735; 83880; 84100; 84132; 84156; 84300; 84439; 84443; 84481; 84484; 85025; 85027; 85384; 85610; 85651; 85730; 86140; 86593; 87040; 87086; 93005; 93010; 93225; 93226; 93306-TC; 93970-TC; 94002; 94640; 97116-GP; 97162-GP; 99283-25; G0480; J1644; J7030